=== PATIENT | male | born 1940 | race Caucasian/White ===

== ENCOUNTER → 2016-10-07 | Outpatient (CLI) | payer OTHER ==
[~2016-10-07] MED LIST: ALBUTEROL 3 ML 33 ML INH; ALBUTEROL0.09 MG/A2; AMOXIL500 MG PO; ANTIVERT/2525 MG PO; ANTIVERT25 MG PO; ASPIR-TRIN325 MG PO; ASPIRIN CHEWABL81 MG PO; AZITHROMYCIN250 MG PO; BRIMONIDINE TART5 ML OU; CLARITIN10 MG PO; COMBIVENT RESPIM4 GM INH; COMBIVENT1 AR1 IH; DELTASONE20 MG PO; FINASTERIDE5 M1 PO; FLOMAX0.4 MG PO; FLONASE 0.05% 121 EA NAS; FLUCONAZOLE100 MG PO; LEVAQUIN500 M2 PO; LEVAQUIN750 M1 PO; LEVOFLOXACIN500 MG PO; LISINOPRIL2.5 MG PO; LOMOTIL 0.025 M1 TA1 PO; LOPRESSOR25 MG PO; Lopressor25 MG PO; METOPROLOL1 MG/ML PO; MUCINEX600 MG PO; NITRO-DUR0.4 MG/HR TD; NORVASC5 MG PO; Oscal,Oyster S500 MG PO; PRAVACHOL20 MG PO; PREDNISONE10 MG PO; PREDNISONE50 MG PO; PROAIR HFA0.09 MG/AC INH; PROAIR HFA8.5 GM INH; PROTONIX40 MG PO; SYMBICORT1 AE1 INH; SYNTHROID,LEV125 MCG PO; SYNTHROID,LEV150 MCG PO; SYNTHROID0.15 MG PO; TOPROL XL25 MG PO; TRUSOPT 5 ML5 ML OPH; TRUSOPT 5 ML5 ML OU; VENTOLIN 02.5 MG/3 M; VENTOLIN 02.5 MG/3 M INH; VITAMIN D31000 IU PO; XALATAN 0.005%2.5 ML OU; XALATAN 2.5 ML2.5 ML OU; ZESTRIL5 MG PO; ZITHROMAX250 MG PO; ZOFRAN ODT4 MG SL
--- NOTE | ~2016-10-07 | ST ---
[place], [place] EXERCISE STRESS TEST REPORT NAME: DAVID ZAVALA UNIT #: [id number] ROOM: DOCTOR: ELIZABETH BUCHANAN MD BIRTHDATE: [birth year] DOS: 10/07/2016 LEXISCAN PER PROTOCOL: Baseline cardiogram sinus rhythm with left ventricular hypertrophy by voltage criteria with poor R-wave progression in the anterior leads, 0.4 mg of Lexiscan, duration of 10 seconds. With Lexiscan, the patient did have some shortness of breath. No new EKG changes. Blood pressure and heart rate responses are normal. Nuclear images will be reported separately. FINAL IMPRESSION: No EKG changes Lexiscan. Positive shortness of breath Lexiscan. Blood pressure and heart rate responses are normal. Nuclear images will be reported separately. ELIZABETH BUCHANAN MD CM:STRESS:EXERCISE STRESS TEST REPORT 0705 [id number] ELIZABETH BUCHANAN MD
== END | disposition home or self-care (01) ==
LOC: CARD 02:41
DX: R53.81 Other malaise (principal); R94.31 Abnormal electrocardiogram [ECG] [EKG]

== ENCOUNTER 2016-11-04 17:03 | Inpatient (IN) | payer OTHER ==
[2016-11-04] VITALS (10 sets, daily range): BP systolic 97–112; BP diastolic 54–63
[~2016-11-04] VITALS: Ht 172.7 cm; Wt 59.5 kg
--- NOTE | ~2016-11-04 | O ---
[place], [place] OPERATIVE NOTE NAME: DAVID ZAVALA UNIT #: [id number] ROOM: [facility]- DOCTOR: PEREZ DOOLEY,KYRA BIRTHDATE: [birth year] DOS: GASTROENDOSCOPIC REPORT INDICATIONS: The patient is 76 years old who has presented with chief complaint of GI bleed to the hospital. The patient has been lethargic. The patient had to be intubated and brought to ICU. The patient is status post transfusion of 4 units of packed RBC. PROCEDURE: After stabilization and intubation, today's procedure was panendoscopy cum colonoscopy. PREMEDICATION: Versed and Diprivan. SCOPE: Olympus forward-viewing gastroscope Q10 video. REPORT: After putting the patient in the left lateral position and after application of lubricant to the scope, the scope was introduced. Thereafter, under direct visualization, I advanced through the length of esophagus without difficulty. Esophagus cervicothoracic distally within normal limits. Gastric pouch was entered. No evidence of bleeding was noticed. At this stage, I intubated duodenum which is free of ulcer and lesions. The patient extubated and tolerated the procedure well. IMPRESSION: Gastritis, no active bleeding source in upper GI tract could be identified. Therefore, we are going to proceed with colonoscopy. KYRA TODD MD CM:OPRECORD:OPERATIVE NOTE 1301 1414 KYRA TODD MD 11/05/16 2018 interface
--- NOTE | ~2016-11-04 | CON ---
[place], [place] REPORT OF CONSULTATION NAME: DAVID ZAVALA [facility] #: [id number] UNIT #: [id number] ROOM: [facility] DOCTOR: RAE BUSTILLO MD,NAIMA BIRTHDATE: [birth year] DOS: 11/05/2016 PULMONARY CRITICAL CARE EVALUATION AND MANAGEMENT NOTE CONSULTATION REQUESTED BY: Hospitalist services. REASON FOR CONSULTATION: To assess the patient for medical management of acute respiratory failure. HISTORY OF PRESENT ILLNESS: This is a 76-year-old white male, unable to give me any history and all the history has been obtained from essential review of the medical records by the other physician, nursing documentation and my past consultation. The patient currently noted on the mechanical ventilator, intubated as well in the intensive care unit at the time of the assessment. He has been brought to the hospital on emergency as the patient was having diarrhea for the past 3 days. He was described with possibility of fresh blood sometimes in the stool as well. He has been admitted to the hospital for further medical management on 11/04/2016. The patient has been noted with large volume of fresh blood which is described by patient at night. After that, the patient has been noted with unresponsiveness with decreased mentation. He was also noted with hemodynamic instability. The patient has been intubated, started on mechanical ventilation. Currently, the patient is noted on mechanical ventilator with assist control mode on mechanical ventilation, tidal volume of 500 mL. The patient has not been noted with any symptoms of coughing or shortness of breath, which was described prior to the current intubation and mechanical ventilation or other symptoms, he has not been reported with any symptoms of hemoptysis. The patient has not been described any symptoms of chest pain previously. REVIEW OF SYSTEMS: Cannot be completed as the patient is intubated and currently noted on the mechanical ventilator. PAST MEDICAL HISTORY: Known with history of: 1. Centrilobular emphysema. 2. History of asbestos exposure. 3. Abdominal aortic aneurysm for the patient history and repair in the past. 4. BPH. 5. Essential hypertension. 6. Diverticulosis. 7. Unspecified congestive heart failure. 8. History of hypothyroidism. PAST SURGICAL HISTORY: Described as: 1. Pilonidal cyst removal. 2. Appendectomy. 3. Cardiac catheterization and coronary stents insertion. 4. Coronary angioplasty. 5. Abdominal aortic aneurysm. 6. Past fiberoptic bronchoscopy for the patient in August of 2015. SOCIAL HISTORY: The patient stays at home, . He has been noted with [place], [place] REPORT OF CONSULTATION NAME: DAVID ZAVALA UNIT #: [id number] ROOM: [facility] DOCTOR: RAE BUSTILLO MD,NAIMA BIRTHDATE: [birth year] history of tobacco use since age of [age] years old, 3/4 pack of cigarettes per day to half a pack of cigarettes per day. Not sure if the patient has been smoking cigarettes at this time or not. There was no history of alcohol use or illicit drug use was noted. 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 FAMILY HISTORY: Essentially noted noncontributory. CURRENT MEDICATIONS: The current medications administered noted as use of Flomax, levothyroxine, Protonix, Sandostatin drip, metoprolol tartrate, latanoprost eye drops, Trusopt eye drops, albuterol sulfate with nebulizer 1.25 mg q.i.d. p.r.n. for any wheezing. IV propofol for this patient and the use of the Versed 5 mg q. 1h. p.r.n. for management of agitation and sedation. DRUG ALLERGIES: REPORTED ALLERGY TO IVP DYE AND CODEINE PHOSPHATE. PHYSICAL EXAMINATION: GENERAL: A 76-year-old white male currently noted intubated, remains on mechanical ventilator, sedated with Diprivan and combination with Versed intermittent use. Height of the patient recorded as 5 feet 8 inches, weight of 131 pounds, BMI 19.9. VITAL SIGNS: Shows temperature noted as normal, respiratory rate of 12-13 on mechanical ventilator, heart rate 75, blood pressure 129/76 - 127/80. The pulse oxygen saturation for the patient recorded on the mechanical ventilator with 35% oxygen as 96% saturation. HEENT: The patient currently orally intubated. Orogastric tube is in place. Eyes were nonicterus. NECK: Supple. CARDIOVASCULAR: S1, S2 audible. LUNGS: Moderate reduction in breath sounds noted in the lungs bilaterally without any overt wheezing or crackles at the present time. ABDOMEN: Soft with hypoactive bowel sounds and no tenderness elicited. LABORATORY DATA: CBC of the patient that was done on 11/04/2016, hemoglobin 7.8, hematocrit 25.0, WBC count and platelet count were normal on admission. Lactic acid on admission was 2.3. PT/PTT on 11/04/2016 was normal on admission. CMP on admission 11/04/2016, BUN 22, creatinine was normal, sodium 134, mildly decreased. CPK normal. C-reactive protein mildly elevated at 1.49 with a normal troponin first set. The BMP of patient that was done this morning essentially noted as normal BMP. CBC of the patient of this morning after the 3 pack RBC blood transfusion in the past 12 hours shows WBC count 15.7, hemoglobin 10.7, hematocrit 33.0 with a platelet count of 115,000. Review of the radiology data for this patient. The chest x-ray of the patient that was done this morning, endotracheal tube, NG tube in place without any infiltration. Chest x-ray of the patient which was done earlier was noted with NG tube in the lower portion of the esophagus. CK-MB and troponin repeated was noted normal. Followup lactic acid of the patient on 11/04/2016 was normal. IMPRESSION: [place], [place] REPORT OF CONSULTATION NAME: DAVID ZAVALA UNIT #: [id number] ROOM: [facility] DOCTOR[facility]: [birth year] 1. The patient who has been currently admitted to the hospital noted with severe gastrointestinal bleeding with possibility considered as ischemic colitis or other etiology leading to large bleeding for the patient with anemia and subsequent respiratory failure secondary to the hypotension. 2. History of long-term chronic obstructive pulmonary disease. 3. Past history of nicotine dependence known from the past. 4. Severe protein-calorie malnutrition status as well with physical examination and BMI of 19. 5. Lactic acidosis secondary to hypovolemia for this patient and hypoperfusion for the patient resolved with resuscitation and adequate volume infusion. 6. Respiratory acidosis as well with metabolic component. PLAN OF TREATMENT: Adjust the tidal volume to 650 mL for this patient. Repeat arterial blood gas in a couple of hours after making the change. Mechanical ventilator settings for patient remains the same with assist control mode of mechanical ventilation. Ventilator bundle management initiation. DVT prophylaxis in the form of SCD avoiding any other anticoagulants because of the current GI bleeding. GI consultation has been ordered, which was pending. Monitor any further abnormal bleeding. Monitor hemoglobin and hematocrit closely for the patient with additional blood transfusion as necessary. Thrombocytopenia noted for the patient, this may be dilutional in nature after the current packed RBC blood transfusion. Obtain the endotracheal Gram stain, culture for this patient in case of any excessive secretion production. There has not been any secretion production noted at the present time. Order the prealbumin level for the patient for the morning as well. Monitor chest x-ray periodically for this patient as well as the other labs as well. Usual care. Other supportive therapy, plan of management and treatments. Further treatment changes will be done based on the progression of the illness. Use of the bronchodilator at least q.i.d. for the patient to help the secretion clearance from the endotracheal tube for this patient while on the mechanical ventilation. Total time for the patient's pulmonary and critical care evaluation and management for this patient was 40 minutes. NAIMA MCBRIDE MD CM:CONSTR:REPORT OF CONSULTATION 1030 11/06/16 0152 interface
--- NOTE | ~2016-11-04 | O ---
[place], [place] OPERATIVE NOTE NAME: DAVID ZAVALA UNIT #: [id number] ROOM: [facility]- DOCTOR: PEREZ DOOLEY,KYRA BIRTHDATE: [birth year] DOS: 11/07/2016 HISTORY OF PRESENT ILLNESS: The patient is a 76-year-old who has presented with chief complaint of GI bleed, underwent endoscopic assessment 3 days ago and no active bleeding. We did a colonoscopy, partial, in the ICU. There was all blood and debris. We could not visualize anything. He underwent 3 days of colonic prep because we knew that he has a redundant colon and because his past colonoscopy a couple of months ago was showing residual stool and blood in colon. Therefore, we could not have detailed findings. PROCEDURE: Today's procedure part of investigation is colonoscopy plus tattoo marking plus biopsy. PREMEDICATION: Versed and Diprivan. SCOPE: Olympus forward viewing colonoscope 10L video. REPORT: After putting the patient in the left lateral position and after application of lubricant to the scope, the scope was introduced. Thereafter, under direct visualization, I advanced through the length of colon with great difficulty due to redundancy and tortuosity of colon and numerous diverticulosis. There was a large volume of still blood residue in the colon; however, meticulously this time this was lavaged and suctioned out and eventually we were able to get to the base of the cecum. An ulcerated area of 2.5 cm, 3 cm at most was noticed. This has a visible vessel at the center. This is parallel with ileocecal valve. The site was tattooed for surgical arrangement. Margin of the ulceration area which was raised lip was biopsied. The patient extubated, tolerated procedure well. IMPRESSION: Cecal lesion at the ileocecal valve level, visible vessel at the center of it, which is responsible for rebleeding. Severe diverticulosis, severe redundancy and tortuosity of colon, retained stool; however, this time, we were able to scope the cecum. PLAN AND DISCUSSION: Consultation with Dr. Gupta of General Surgery team and right hemicolectomy hopefully and that will be the answer as far as his lower GI bleed is concerned. I believe this lesion is contained and that operation would be therapeutic for him. [place], [place] OPERATIVE NOTE NAME: DAVID ZAVALA UNIT #: [id number] ROOM: [facility] DOCTOR: PEREZ DOOLEY,KYRA BIRTHDATE: [birth year] KYRA OTDD MD CM:OPRECORD:OPERATIVE NOTE 1502 1555 KYRA TODD MD 11/07/16 1556 interface
--- NOTE | ~2016-11-04 | O ---
[place], [place] OPERATIVE NOTE NAME: DAVID ZAVALA UNIT #: [id number] ROOM: [facility]- DOCTOR: PEREZ DOOLEY,KYRA BIRTHDATE: [birth year] DOS: GASTROENDOSCOPIC REPORT INDICATIONS: The patient has presented with GI bleed, status post 4 units of transfusion. PROCEDURE: Today's procedure part of investigation is colonoscopy. PREMEDICATION: Diprivan. SCOPE: Olympus forward-viewing colonoscope 10L video. REPORT: After putting the patient in the left lateral position and after application of lubricant to rectal pouch and digital examination, scope was introduced. Thereafter, under direct visualization, with difficulty, advanced through the length of some portion of the colon. There is a large volume of stool and blood admixed, visualization dismal to less than 2%. Multiple lavage was done; however, unsuccessful. The patient extubated, tolerated the procedure well. IMPRESSION: Retained blood and stool in the colon, visualization dismal in a position that the patient is very difficult to come up with a detailed answer. PLAN AND DISCUSSION: I am going to organize a CTA of the abdomen today after hydration is assured and transfusion is given. Then, we are going to see if we have any source of concern for ischemic bowel otherwise, if no definitive answer, then we gradually would prep for the next 2 days until we get to a successful point where we can have another colonoscopy and to come up with the answer. We understand the limitations that we have patient intubated, cannot cooperate with us, we have to go gradually to get to the answer. KYRA TODD MD CM:OPRECORD:OPERATIVE NOTE 1301 141 KYRA TODD MD 11/05/16 141 interface
--- NOTE | ~2016-11-04 | PR ---
[place], [place] PROGRESS NOTE NAME: DAVID ZAVALA [facility] #: [id number] UNIT #: [id number] ROOM: [facility] DOCTOR: RAE BUSTILLO MD,NAIMA BIRTHDATE: [birth year] DOS: 11/06/2016 PULMONARY CRITICAL CARE EVALUATION HISTORY OF PRESENT ILLNESS: He has upper and lower endoscopy done for this patient that was completed by Dr. Catalan at the bedside. The colonoscopy noted suboptimal. The blood was noted for the patient in the colon. The patient was re-planned for having a repeat colonoscopy done possibly in the morning for this patient. After the good prep, the EGD for the patient does not show any significant abnormality explaining his bleeding. The patient has been noted hemodynamically stable. Sedation has been continued on the patient and with the reduction sedation for this patient mental status was noted to be appropriate. He has now been noted to have respiratory problems. PHYSICAL EXAMINATION: VITAL SIGNS: Shows a normal temperature, respiratory rate 12, heart rate 68, blood pressure 122/66 and 134/68. HEENT: Examination shows the patient remained orally intubated. NECK: Supple. CARDIOVASCULAR SYSTEM: S1, S2 audible. LUNGS: Hfva-nb-bonddgkd decreased breath sounds noted in the lungs bilaterally. ABDOMEN: Soft, nontender. Mild obesity. Bowel sounds present. EXTREMITIES: Shows no edema, clubbing or cyanosis. LABORATORY DATA: The patient's CBC this morning, hemoglobin 9.8, hematocrit 29.9, WBC count normal, platelet count 109,000, mildly decreased. Endotracheal aspirate culture showing preliminary normal vickie. The Gram stain for this patient was noted with many white blood cells, moderate epithelial cells, moderate gram-positive cocci in pairs. BMP of the patient on 11/14/2016 shows glucose 126, BUN and creatinine were normal. Prealbumin of 14. IMPRESSION: 1. The patient with acute respiratory failure secondary decompensation in patient, hypertension and acute gastrointestinal bleeding. 2. The patient was noted with improvement in hemoglobin and hematocrit and remained stable at this time. Source of the GI bleeding of the patient is most likely related to the lower GI tract since the upper endoscopy does not show any major abnormalities explaining the bleeding episode. 3. The patient with history of chronic obstructive pulmonary disease as well. 4. Mild thrombocytopenia for the patient was also noted. The platelet count was noted with mild worsening from yesterday. The CT of the chest, which was done on 11/05/2016 for the patient. Radiology's report for the patient was described as aneurysm formation of the descending aorta for the patient in the infrarenal area, measured as 3.9 cm in size. Significant prostate enlargement was also described. No other acute findings for the patient were described. 5. Moderate protein-calorie malnutrition. PLAN OF TREATMENT: The patient's sedation would be discontinued once the patient noted awake, will be given a trial of CPAP of 5, pressure support of 10 for a couple of hours. The CPAP trial will be continued for a couple of hours [place], [place] PROGRESS NOTE NAME: DAVID ZAVALA UNIT #: [id number] ROOM: [facility] DOCTOR: RAE BUSTILLO MD,NAIMA BIRTHDATE: [birth year] as tolerated. The patient will be assessed with arterial blood gases for potential liberation from mechanical ventilation today. Continue the current GI management with use of the Sandostatin drip and monitoring hemoglobin and hematocrit and blood transfusion. Supportive therapy, plan of management, other care. Continue bronchodilators on the patient while on the mechanical ventilator. Usual care. Further treatment changes will be done based on the progression of the illness. Total time pulmonary critical management for this patient today is 33 minutes. NAIMA MCBRIDE MD CM:PNTRANS 1101 1602 NAIMA BUSTILLO MD 11/07/16 0009 interface
--- NOTE | ~2016-11-04 | PN ---
[place], [place] PROGRESS NOTE NAME: DAVID ZAVALA [facility] #: [id number] UNIT #: [id number] ROOM: [facility] DOCTOR: RAE BUSTILLO MD,NAIMA BIRTHDATE: [birth year] DATE: 11/07/16 SUBJECTIVE: He has self-extubated himself yesterday as the patient's sedation was stopped. The patient did not require any ventilatory support such as the BiPAP or other post-extubation. Titrated on oxygen supplementation nasal cannula. The bowel prep for the patient has been started since last night till early this morning for the colonoscopy done today for assessment of GI bleeding. Hemodynamically, the patient has been noted well. At this time were noted n.p.o. because of the further GI workup to be completed as a colonoscopy. He denies symptoms of chest pain, coughing or any sputum expectoration. Denies any acute shortness of breath as well. OBJECTIVE: VITAL SIGNS: For the patient, which has been recorded shows the temperature noted as normal, respiratory rate 16, heart rate 62, blood pressure 98/60-100/58. Pulse oxygen saturation on 2 liters nasal cannula 97% saturation. HEENT: Examination shows head was atraumatic. Eyes nonicterus. NECK: Supple. CARDIOVASCULAR: S1, S2 is audible. LUNGS: The patient was noted without any wheezing or crackles at the present time. ABDOMEN: Soft, nontender. LABORATORY DATA: CBC of the patient that was done for this patient on 11/07/2016 shows hemoglobin 7.5, hematocrit 23.2, platelet count for the patient was 115,000. The culture of the endotracheal aspirate noted as a normal vickie. IMPRESSION: 1. The patient with acute gastrointestinal bleeding for the patient required further assessment. The source of the bleeding so far has not been determined. 2. Hypertension. The patient is hemodynamic. The patient was noted better at this time. 3. Acute respiratory failure secondary to the hypotension and current gastrointestinal bleeding, status post extubation, liberation of mechanical ventilation successfully without any difficulty. 4. Moderate protein-calorie malnutrition. 5. History of chronic obstructive pulmonary disease. PLAN OF TREATMENT: Proceed with the further workup at this time. Continue the oxygen supplementation, maintain saturation 90% or greater. Monitor respiratory status closely. The patient could be transferred from the intensive care unit to telemetry floor if desired. No other intervention changes will be noted on today's assessment. [place], [place] PROGRESS NOTE NAME: DAVID ZAVALA Stephanie UNIT #: [id number] ROOM: [facility] DOCTOR: NAIMA ARRIAGA MD BIRTHDATE: [birth year] NAIMA ARRIAGA MD CM:PNTRANS 1124 1356 NAIMA BUSTILLO MD 11/10/16 1357 JOSE LIMA MIS.LLR
[2016-11-04 17:57] LABS: BASO % 0.3 % (0.0-1.0); EOS # 0.2 10*3/uL (0.0-0.4); EOS % 2.6 % (1.0-4.0); HEMOGLOBIN 7.8 g/dl (14.0-18.0); LYMPH # 1.2 10*3/uL (1.3-4.4); MEAN CELL VOLUME 75.5 fl (80.0-94.0); MEAN CORPUSCULAR HGB 23.6 pg (27.0-31.0); MEAN CORPUSCULAR HGB CONC 31.2 g/dl (33.0-37.0); MEAN PLATELET VOLUME 9.4 fl (9.6-12.3); MONO # 0.7 10*3/uL (0.1-1.0); MONO % 12.1 % (3.0-9.0); NEUT % 65.7 % (47.0-73.0); PLATELET COUNT AUTOMATED 169 10*3/uL (130-400); RED BLOOD COUNT 3.31 10*6/uL (4.50-5.90); RED CELL DISTRI WIDTH 19.6 % (0-14.5)
[2016-11-04 18:14] LABS: ALBUMIN 3.1 gm/dl (3.1-4.5); ALKALINE PHOSPHATASE 104 U/L (45-117); BILIRUBIN, TOTAL 0.3 mg/dl (0.2-1.0); BUN 22 mg/dl (7-24); C-REACTIVE PROTEIN 1.49 MG/DL (0-0.3); CARBON DIOXIDE 27 mmol/L (21-32); CHLORIDE 99 mmol/L (98-107); CPK 37 U/L (39-308); EST GLOM FILT AFRICAN AMERICAN > 60 ml/min; GLUCOSE 117 mg/dL (65-99); MAGNESIUM 1.8 mg/dL (1.5-2.1); POTASSIUM 3.8 mmol/L (3.5-5.1); SGOT/AST 11 IU/L (3-35); SGPT/ALT 11 U/L (12-78); SODIUM 134 mmol/L (136-145); TOTAL PROTEIN 6.1 gm/dL (6.4-8.2)
[2016-11-04 18:14] LABS: INTERNATIONAL NORM RATIO 1.1 (2.0-3.5); PROTHROMBIN TIME 11.4 SECONDS (9.0-12.4)
[2016-11-04 18:15] LABS: TROPONIN I < 0.015 ng/ml (<0.045)
[2016-11-04 19:54] LABS: LA>2 REFLEX 2 HR DRAW NOW
[2016-11-05] VITALS (23 sets, daily range): BP systolic 95–149; BP diastolic 45–82
[2016-11-05 03:00] LABS: ABG BASE EXCESS -6.3 mmol/L (-2.0-2.0); ABG CO2 CONTENT 22.7 mmol/L (23-27); ABG TEMPERATURE 97.3 F (98.0-99.0); ARTERIAL BLOOD GAS PH 7.203 (7.35-7.45)
[2016-11-05 04:59] LABS: BUN 21 mg/dl (7-24); CARBON DIOXIDE 23 mmol/L (21-32); CHLORIDE 106 mmol/L (98-107); EST GLOM FILT AFRICAN AMERICAN > 60 ml/min; GLUCOSE 118 mg/dL (65-99); MAGNESIUM 1.8 mg/dL (1.5-2.1); POTASSIUM 3.8 mmol/L (3.5-5.1); SODIUM 138 mmol/L (136-145)
[2016-11-05 05:04] LABS: FREE T4 1.32 ng/dl (0.76-1.46)
[2016-11-05 05:10] LABS: THYROID STIM HORMONE (HS) 0.485 uIU/ml (0.358-4.75)
[2016-11-05 06:11] LABS: ABG CO2 CONTENT 22.3 mmol/L (23-27); ABG HCO3 20.7 mmol/l (22-26); ABG TEMPERATURE 97.3 F (98.0-99.0); ARTERIAL BLOOD GAS PH 7.253 (7.35-7.45); ARTERIAL BLOOD GAS PO2 97.2 mmHg (80-90)
[2016-11-05 06:14] LABS: ABG BASE EXCESS -5.9 mmol/L (-2.0-2.0)
[2016-11-05 08:29] LABS: BASO % 0.3 % (0.0-1.0); EOS # 0.2 10*3/uL (0.0-0.4); EOS % 1.1 % (1.0-4.0); IG # 0.1 10*3/uL (0.0-0.1); LYMPH # 1.7 10*3/uL (1.3-4.4); LYMPH % 10.5 % (27.0-41.0); MEAN CORPUSCULAR HGB 26.1 pg (27.0-31.0); MEAN CORPUSCULAR HGB CONC 32.4 g/dl (33.0-37.0); MEAN PLATELET VOLUME 9.7 fl (9.6-12.3); MONO # 1.4 10*3/uL (0.1-1.0); MONO % 8.7 % (3.0-9.0); NEUT # 12.4 10*3/uL (2.3-7.9); RED CELL DISTRI WIDTH 18.4 % (0-14.5); WHITE BLOOD COUNT 15.7 10*3/uL (4.8-10.8)
[2016-11-05 08:30] LABS: HEMOGLOBIN 10.7 g/dl (14.0-18.0); MEAN CELL VOLUME 80.5 fl (80.0-94.0); PLATELET COUNT AUTOMATED 115 10*3/uL (130-400)
[2016-11-05 09:49] LABS: FOLIC ACID 8.84 ng/mL (>5.38)
[2016-11-05 11:57] LABS: ABG CO2 CONTENT 22.1 mmol/L (23-27); ABG HCO3 20.8 mmol/l (22-26); ARTERIAL BLOOD GAS PH 7.305 (7.35-7.45)
[2016-11-05 18:01] LABS: BASO % 0.2 % (0.0-1.0); EOS % 0.3 % (1.0-4.0); HEMATOCRIT 30.5 % (42.0-52.0); IG # 0.1 10*3/uL (0.0-0.1); LYMPH # 0.5 10*3/uL (1.3-4.4); LYMPH % 3.9 % (27.0-41.0); MEAN CELL VOLUME 80.5 fl (80.0-94.0); MEAN CORPUSCULAR HGB 26.4 pg (27.0-31.0); MEAN CORPUSCULAR HGB CONC 32.8 g/dl (33.0-37.0); MEAN PLATELET VOLUME 9.9 fl (9.6-12.3); MONO # 0.8 10*3/uL (0.1-1.0); MONO % 6.7 % (3.0-9.0); NEUT % 88.4 % (47.0-73.0); PLATELET COUNT AUTOMATED 99 10*3/uL (130-400); RED BLOOD COUNT 3.79 10*6/uL (4.50-5.90); RED CELL DISTRI WIDTH 18.6 % (0-14.5); WHITE BLOOD COUNT 12.5 10*3/uL (4.8-10.8)
[2016-11-06] VITALS (9 sets, daily range): BP systolic 107–152; BP diastolic 54–78
[2016-11-06 06:24] LABS: ABG CO2 CONTENT 22.8 mmol/L (23-27); ABG HCO3 21.5 mmol/l (22-26); ABG TEMPERATURE 97.8 F (98.0-99.0); ARTERIAL BLOOD GAS PH 7.313 (7.35-7.45); ARTERIAL BLOOD GAS PO2 79.1 mmHg (80-90)
[2016-11-06 07:05] LABS: BASO % 0.1 % (0.0-1.0); HEMATOCRIT 29.9 % (42.0-52.0); HEMOGLOBIN 9.8 g/dl (14.0-18.0); LYMPH # 0.6 10*3/uL (1.3-4.4); LYMPH % 8.9 % (27.0-41.0); MEAN CELL VOLUME 80.8 fl (80.0-94.0); MEAN CORPUSCULAR HGB 26.5 pg (27.0-31.0); MEAN CORPUSCULAR HGB CONC 32.8 g/dl (33.0-37.0); MEAN PLATELET VOLUME 9.8 fl (9.6-12.3); MONO # 0.3 10*3/uL (0.1-1.0); MONO % 4.5 % (3.0-9.0); NEUT # 5.9 10*3/uL (2.3-7.9); NEUT % 86.1 % (47.0-73.0); PLATELET COUNT AUTOMATED 109 10*3/uL (130-400); RED CELL DISTRI WIDTH 18.6 % (0-14.5); WHITE BLOOD COUNT 6.9 10*3/uL (4.8-10.8)
[2016-11-06 07:17] LABS: BUN 16 mg/dl (7-24); CARBON DIOXIDE 23 mmol/L (21-32); CHLORIDE 106 mmol/L (98-107); EST GLOM FILT AFRICAN AMERICAN > 60 ml/min; GLUCOSE 126 mg/dL (65-99); SODIUM 139 mmol/L (136-145)
[2016-11-06 07:38] LABS: POTASSIUM 4.8 mmol/L (3.5-5.1)
[2016-11-06 07:56] LABS: PREALBUMIN 14 mg/dl (20-40)
[2016-11-07] VITALS (12 sets, daily range): BP systolic 96–136; BP diastolic 42–67
[2016-11-07 01:41] LABS: BASO % 0.2 % (0.0-1.0); EOS % 0.3 % (1.0-4.0); HEMATOCRIT 24.8 % (42.0-52.0); HEMOGLOBIN 8.1 g/dl (14.0-18.0); LYMPH # 1.5 10*3/uL (1.3-4.4); LYMPH % 15.8 % (27.0-41.0); MEAN CELL VOLUME 81.3 fl (80.0-94.0); MEAN CORPUSCULAR HGB 26.6 pg (27.0-31.0); MEAN CORPUSCULAR HGB CONC 32.7 g/dl (33.0-37.0); MEAN PLATELET VOLUME 9.8 fl (9.6-12.3); MONO # 1.4 10*3/uL (0.1-1.0); MONO % 14.2 % (3.0-9.0); NEUT # 6.6 10*3/uL (2.3-7.9); NEUT % 69.3 % (47.0-73.0); PLATELET COUNT AUTOMATED 125 10*3/uL (130-400); RED BLOOD COUNT 3.05 10*6/uL (4.50-5.90); WHITE BLOOD COUNT 9.5 10*3/uL (4.8-10.8)
[2016-11-07 06:50] LABS: BASO % 0.3 % (0.0-1.0); EOS # 0.1 10*3/uL (0.0-0.4); EOS % 0.8 % (1.0-4.0); HEMATOCRIT 23.2 % (42.0-52.0); HEMOGLOBIN 7.5 g/dl (14.0-18.0); LYMPH # 0.9 10*3/uL (1.3-4.4); MEAN CELL VOLUME 82.6 fl (80.0-94.0); MEAN CORPUSCULAR HGB 26.7 pg (27.0-31.0); MEAN CORPUSCULAR HGB CONC 32.3 g/dl (33.0-37.0); MEAN PLATELET VOLUME 9.6 fl (9.6-12.3); MONO # 0.8 10*3/uL (0.1-1.0); MONO % 13.3 % (3.0-9.0); NEUT # 4.3 10*3/uL (2.3-7.9); NEUT % 70.3 % (47.0-73.0); PLATELET COUNT AUTOMATED 115 10*3/uL (130-400); RED BLOOD COUNT 2.81 10*6/uL (4.50-5.90); RED CELL DISTRI WIDTH 18.9 % (0-14.5); WHITE BLOOD COUNT 6.1 10*3/uL (4.8-10.8)
[2016-11-08] VITALS: BP 136/67
[2016-11-08 04:14] VITALS: BP 114/45
[2016-11-08 06:15] LABS: BASO % 0.3 % (0.0-1.0); EOS # 0.2 10*3/uL (0.0-0.4); EOS % 3.2 % (1.0-4.0); HEMATOCRIT 27.6 % (42.0-52.0); HEMOGLOBIN 8.9 g/dl (14.0-18.0); LYMPH # 1.2 10*3/uL (1.3-4.4); LYMPH % 15.9 % (27.0-41.0); MEAN CELL VOLUME 83.1 fl (80.0-94.0); MEAN CORPUSCULAR HGB 26.8 pg (27.0-31.0); MEAN CORPUSCULAR HGB CONC 32.2 g/dl (33.0-37.0); MEAN PLATELET VOLUME 9.3 fl (9.6-12.3); MONO # 0.8 10*3/uL (0.1-1.0); MONO % 10.9 % (3.0-9.0); NEUT % 69.4 % (47.0-73.0); PLATELET COUNT AUTOMATED 123 10*3/uL (130-400); RED BLOOD COUNT 3.32 10*6/uL (4.50-5.90); RED CELL DISTRI WIDTH 18.4 % (0-14.5); WHITE BLOOD COUNT 7.2 10*3/uL (4.8-10.8)
[2016-11-08 06:45] LABS: CARBON DIOXIDE 30 mmol/L (21-32); CHLORIDE 104 mmol/L (98-107); EST GLOM FILT AFRICAN AMERICAN > 60 ml/min; GLUCOSE 84 mg/dL (65-99); SODIUM 141 mmol/L (136-145)
[2016-11-08 06:56] LABS: BUN 6 mg/dl (7-24); POTASSIUM 3.4 mmol/L (3.5-5.1)
[2016-11-08 08:00] VITALS: BP 131/71
[2016-11-08] MEDS ORDERED: PROTONIX40 M1 IV (11:45)
[2016-11-09] MEDS ORDERED: CALCIUM + D SO1 EACH PO (21:37)
== END 2016-11-08 15:00 | disposition short-term general hospital (02) | DRG 208 ==
LOC: ED 17:03 → ICCU 18:15 → EDHOLD 18:15 → ICCU 18:43
PROVIDERS: Internal Medicine; Internal Medicine Critical Care Medicine; Student in an Organized Health Care Education/Training Program
PROC: 30233N1 Transfusion of Nonautologous Red Blood Cells into Peripheral Vein, Percutaneous Approach (ICD-10-PCS; principal; 2016-11-04)
PROC: 0DJ08ZZ Inspection of Upper Intestinal Tract, Via Natural or Artificial Opening Endoscopic (ICD-10-PCS; 2016-11-05)
PROC: 5A1945Z Respiratory Ventilation, 24-96 Consecutive Hours (ICD-10-PCS; 2016-11-05)
PROC: 0BH17EZ Insertion of Endotracheal Airway into Trachea, Via Natural or Artificial Opening (ICD-10-PCS; 2016-11-05)
PROC: 0DBH8ZX Excision of Cecum, Via Natural or Artificial Opening Endoscopic, Diagnostic (ICD-10-PCS; 2016-11-07)
DX: J96.20 Acute and chronic respiratory failure, unspecified whether with hypoxia or hypercapnia (principal); K63.3 Ulcer of intestine; E44.0 Moderate protein-calorie malnutrition; I11.0 Hypertensive heart disease with heart failure; E87.2 Acidosis; R65.10 Systemic inflammatory response syndrome (SIRS) of non-infectious origin without acute organ dysfunction; I50.9 Heart failure, unspecified; K92.2 Gastrointestinal hemorrhage, unspecified; E87.1 Hypo-osmolality and hyponatremia; Z68.1 Body mass index [BMI] 19.9 or less, adult; J43.9 Emphysema, unspecified; R73.9 Hyperglycemia, unspecified; D50.9 Iron deficiency anemia, unspecified; K21.9 Gastro-esophageal reflux disease without esophagitis; D69.6 Thrombocytopenia, unspecified; H40.10X0 Unspecified open-angle glaucoma, stage unspecified; K29.70 Gastritis, unspecified, without bleeding; F17.210 Nicotine dependence, cigarettes, uncomplicated; N40.1 Benign prostatic hyperplasia with lower urinary tract symptoms; K57.90 Diverticulosis of intestine, part unspecified, without perforation or abscess without bleeding; E03.9 Hypothyroidism, unspecified; Z71.6 Tobacco abuse counseling; Z99.81 Dependence on supplemental oxygen; I25.2 Old myocardial infarction; Z98.49 Cataract extraction status, unspecified eye; Z82.49 Family history of ischemic heart disease and other diseases of the circulatory system; Z88.5 Allergy status to narcotic agent; Z91.041 Radiographic dye allergy status; Z90.49 Acquired absence of other specified parts of digestive tract; Z98.61 Coronary angioplasty status

== ENCOUNTER 2016-11-09 20:13 | Emergency (ER) | payer OTHER ==
[~2016-11-09] VITALS: Ht 170.1 cm; Wt 59.0 kg
[~2016-11-09 20:13] MED LIST changes: +PROTONIX40 M1 IV
[2016-11-09 20:43] VITALS: BP 129/82
[2016-11-09 20:56] LABS: BASO % 0.1 % (0.0-1.0); EOS # 0.1 10*3/uL (0.0-0.4); EOS % 1.1 % (1.0-4.0); HEMATOCRIT 29.7 % (42.0-52.0); HEMOGLOBIN 9.9 g/dl (14.0-18.0); MEAN CELL VOLUME 81.1 fl (80.0-94.0); MEAN CORPUSCULAR HGB CONC 33.3 g/dl (33.0-37.0); MEAN PLATELET VOLUME 9.3 fl (9.6-12.3); MONO # 0.7 10*3/uL (0.1-1.0); MONO % 8.2 % (3.0-9.0); NEUT % 79.4 % (47.0-73.0); PLATELET COUNT AUTOMATED 120 10*3/uL (130-400); RED BLOOD COUNT 3.66 10*6/uL (4.50-5.90); RED CELL DISTRI WIDTH 19.1 % (0-14.5); WHITE BLOOD COUNT 8.9 10*3/uL (4.8-10.8)
[2016-11-09 21:08] LABS: BUN 8 mg/dl (7-24); CARBON DIOXIDE 27 mmol/L (21-32); CHLORIDE 101 mmol/L (98-107); EST GLOM FILT AFRICAN AMERICAN > 60 ml/min; GLUCOSE 159 mg/dL (65-99); POTASSIUM 3.5 mmol/L (3.5-5.1); SODIUM 138 mmol/L (136-145)
[2016-11-09 21:13] LABS: BILIRUBIN NEGATIVE (NEGATIVE); BLOOD NEGATIVE (NEGATIVE); CLARITY SL CLOUDY (CLEAR); COLOR YELLOW (YELLOW); GLUCOSE NEGATIVE (NEGATIVE); KETONE TRACE (NEGATIVE); LEUKO ESTERASE NEGATIVE (NEGATIVE); NITRITE NEGATIVE (NEGATIVE); PROTEIN NEGATIVE (NEGATIVE); SPECIFIC GRAVITY <= 1.005 (1.005-1.030); UROBILINOGEN 0.2 E.U./dl (0.2-1.0)
[2016-11-09 21:21] LABS: RBC 0-2 rbc/hpf (0-2); WBC 0-2 wbc/hpf (0-5)
[2016-11-09 21:22] LABS: BACTERIA TRACE; EPITHELIAL CELLS 0-2; URINE REFLEX COMMENT NO (NO)
[2016-11-09] MEDS ORDERED: CALCIUM + D SO1 EACH PO (21:37)
== END 2016-11-09 21:54 | disposition home or self-care (01) ==
LOC: ED 20:13
PROVIDERS: Emergency Medicine Emergency Medical Services
DX: R33.9 Retention of urine, unspecified (principal); F17.200 Nicotine dependence, unspecified, uncomplicated; Z95.5 Presence of coronary angioplasty implant and graft; N40.0 Benign prostatic hyperplasia without lower urinary tract symptoms; J44.9 Chronic obstructive pulmonary disease, unspecified; Z99.81 Dependence on supplemental oxygen; I10 Essential (primary) hypertension; K21.9 Gastro-esophageal reflux disease without esophagitis; I25.2 Old myocardial infarction; Z88.6 Allergy status to analgesic agent; Z91.013 Allergy to seafood; Z91.041 Radiographic dye allergy status; Z79.899 Other long term (current) drug therapy

== ENCOUNTER 2016-11-21 11:22 | Inpatient (IN) | payer OTHER ==
[~2016-11-21] VITALS: Ht 182.8 cm; Wt 79.4 kg
[2016-11-21] VITALS (7 sets, daily range): BP systolic 150–183; BP diastolic 76–104
[~2016-11-21 11:22] MED LIST changes: +CALCIUM + D SO1 EACH PO
[2016-11-21 12:07] LABS: BILIRUBIN NEGATIVE (NEGATIVE); BLOOD 3+ (NEGATIVE); CLARITY TURBID (CLEAR); COLOR RED (YELLOW); GLUCOSE NEGATIVE (NEGATIVE); KETONE TRACE (NEGATIVE); LEUKO ESTERASE 1+ (NEGATIVE); NITRITE POSITIVE (NEGATIVE); PROTEIN 2+ (NEGATIVE)
[2016-11-21 12:13] LABS: RBC TNTC rbc/hpf (0-2); URINE REFLEX COMMENT YES (NO)
[2016-11-21 12:17] LABS: ALBUMIN 2.8 gm/dl (3.1-4.5); ALKALINE PHOSPHATASE 96 U/L (45-117); BILIRUBIN, TOTAL 0.5 mg/dl (0.2-1.0); BUN 12 mg/dl (7-24); CARBON DIOXIDE 23 mmol/L (21-32); CHLORIDE 98 mmol/L (98-107); EST GLOM FILT AFRICAN AMERICAN > 60 ml/min; GLUCOSE 102 mg/dL (65-99); POTASSIUM 4.3 mmol/L (3.5-5.1); SGOT/AST 39 IU/L (3-35); SODIUM 131 mmol/L (136-145); TOTAL PROTEIN 5.9 gm/dL (6.4-8.2)
[2016-11-21 12:19] LABS: SGPT/ALT 62 U/L (12-78)
[2016-11-21 12:23] LABS: BASO % 0.4 % (0.0-1.0); EOS # 0.4 10*3/uL (0.0-0.4); EOS % 4.7 % (1.0-4.0); HEMATOCRIT 30.5 % (42.0-52.0); HEMOGLOBIN 9.7 g/dl (14.0-18.0); IG # 0.1 10*3/uL (0.0-0.1); LYMPH # 0.9 10*3/uL (1.3-4.4); LYMPH % 10.9 % (27.0-41.0); MEAN CELL VOLUME 82.4 fl (80.0-94.0); MEAN CORPUSCULAR HGB 26.2 pg (27.0-31.0); MEAN CORPUSCULAR HGB CONC 31.8 g/dl (33.0-37.0); MEAN PLATELET VOLUME 9.2 fl (9.6-12.3); MONO # 0.6 10*3/uL (0.1-1.0); MONO % 7.9 % (3.0-9.0); NEUT # 5.9 10*3/uL (2.3-7.9); NEUT % 75.5 % (47.0-73.0); PLATELET COUNT AUTOMATED 212 10*3/uL (130-400); RED CELL DISTRI WIDTH 17.8 % (0-14.5); WHITE BLOOD COUNT 7.9 10*3/uL (4.8-10.8)
[2016-11-21] MEDS ORDERED: COMBIVENT RESPIM4 GM INH (17:24)
[2016-11-21] MEDS ORDERED: PROTONIX40 MG PO (17:28)
[2016-11-21 18:05] LABS: CKMB 1.9 ng/ml (0.5-3.6); CPK 26 U/L (39-308)
[2016-11-21 18:06] LABS: TROPONIN I < 0.015 ng/ml (<0.045)
[2016-11-22] VITALS: BP 116/52
[2016-11-22 00:52] LABS: CKMB 2.2 ng/ml (0.5-3.6); CPK 23 U/L (39-308)
[2016-11-22 00:57] LABS: TROPONIN I < 0.015 ng/ml (<0.045)
[2016-11-22 06:37] LABS: HEMOGLOBIN 8.4 g/dl (14.0-18.0); LYMPH # 0.3 10*3/uL (1.3-4.4); MEAN CELL VOLUME 82.3 fl (80.0-94.0); MEAN CORPUSCULAR HGB 26.6 pg (27.0-31.0); MEAN CORPUSCULAR HGB CONC 32.3 g/dl (33.0-37.0); MEAN PLATELET VOLUME 10.1 fl (9.6-12.3); MONO # 0.2 10*3/uL (0.1-1.0); MONO % 5.9 % (3.0-9.0); NEUT % 84.5 % (47.0-73.0); PLATELET COUNT AUTOMATED 212 10*3/uL (130-400); RED BLOOD COUNT 3.16 10*6/uL (4.50-5.90); RED CELL DISTRI WIDTH 17.4 % (0-14.5); WHITE BLOOD COUNT 3.5 10*3/uL (4.8-10.8)
[2016-11-22 06:55] LABS: CPK 21 U/L (39-308)
[2016-11-22 06:56] LABS: CKMB 2.1 ng/ml (0.5-3.6)
[2016-11-22 07:06] LABS: TROPONIN I < 0.015 ng/ml (<0.045)
[2016-11-22 07:08] LABS: ALBUMIN 2.2 gm/dl (3.1-4.5); BILIRUBIN, TOTAL 0.4 mg/dl (0.2-1.0); BUN 9 mg/dl (7-24); CARBON DIOXIDE 24 mmol/L (21-32); CHLORIDE 102 mmol/L (98-107); CHOLESTEROL 126 mg/dL (<200); EST GLOM FILT AFRICAN AMERICAN > 60 ml/min; GLUCOSE 132 mg/dL (65-99); MAGNESIUM 1.7 mg/dL (1.5-2.1); POTASSIUM 3.7 mmol/L (3.5-5.1); SGOT/AST 18 IU/L (3-35); SGPT/ALT 40 U/L (12-78); SODIUM 134 mmol/L (136-145); TOTAL PROTEIN 4.9 gm/dL (6.4-8.2); TRIGLYCERIDES 54 mg/dl (<150); VLDL CHOLESTEROL 11 mg/dL (6-40)
[2016-11-22 07:14] LABS: ALKALINE PHOSPHATASE 73 U/L (45-117); HDL CHOLESTEROL 37 mg/dl (40-60); LDL CHOLESTEROL 78 mg/dL (9-159); THYROID STIM HORMONE (HS) 0.684 uIU/ml (0.358-4.75)
[2016-11-22 08:00] VITALS: BP 129/73
[2016-11-22 08:18] LABS: HEMOGLOBIN A1c 5.5 % (4.8-5.6)
[2016-11-22 12:00] VITALS: BP 119/59
== END 2016-11-22 15:42 | disposition home or self-care (01) | DRG 698 ==
LOC: ED 11:22 → EDHOLD 14:44 → 5E 15:08
PROVIDERS: Emergency Medicine; Internal Medicine
DX: T83.511A Infection and inflammatory reaction due to indwelling urethral catheter, initial encounter (principal); E43 Unspecified severe protein-calorie malnutrition; J44.1 Chronic obstructive pulmonary disease with (acute) exacerbation; N39.0 Urinary tract infection, site not specified; I11.0 Hypertensive heart disease with heart failure; I50.9 Heart failure, unspecified; N40.0 Benign prostatic hyperplasia without lower urinary tract symptoms; J61 Pneumoconiosis due to asbestos and other mineral fibers; F41.0 Panic disorder [episodic paroxysmal anxiety]; K21.9 Gastro-esophageal reflux disease without esophagitis; H40.9 Unspecified glaucoma; E03.9 Hypothyroidism, unspecified; Z71.6 Tobacco abuse counseling; I25.2 Old myocardial infarction; Z88.8 Allergy status to other drugs, medicaments and biological substances; Z85.038 Personal history of other malignant neoplasm of large intestine; Z91.013 Allergy to seafood; Z91.041 Radiographic dye allergy status; Z98.49 Cataract extraction status, unspecified eye; Z87.891 Personal history of nicotine dependence; Z82.49 Family history of ischemic heart disease and other diseases of the circulatory system; Z83.3 Family history of diabetes mellitus

== ENCOUNTER 2016-11-28 04:39 | Inpatient (IN) | payer OTHER ==
[2016-11-28] VITALS (8 sets, daily range): BP systolic 114–170; BP diastolic 56–73
[~2016-11-28] VITALS: Ht 170.2 cm; Wt 76.8 kg
[2016-11-28 06:04] LABS: BASO % 0.3 % (0.0-1.0); EOS # 0.3 10*3/uL (0.0-0.4); EOS % 2.9 % (1.0-4.0); HEMATOCRIT 32.6 % (42.0-52.0); HEMOGLOBIN 10.3 g/dl (14.0-18.0); IG # 0.1 10*3/uL (0.0-0.1); LYMPH % 11.1 % (27.0-41.0); MEAN CELL VOLUME 82.7 fl (80.0-94.0); MEAN CORPUSCULAR HGB 26.1 pg (27.0-31.0); MEAN CORPUSCULAR HGB CONC 31.6 g/dl (33.0-37.0); MEAN PLATELET VOLUME 9.1 fl (9.6-12.3); MONO # 0.8 10*3/uL (0.1-1.0); MONO % 8.9 % (3.0-9.0); NEUT # 6.6 10*3/uL (2.3-7.9); NEUT % 76.2 % (47.0-73.0); PLATELET COUNT AUTOMATED 266 10*3/uL (130-400); RED BLOOD COUNT 3.94 10*6/uL (4.50-5.90); RED CELL DISTRI WIDTH 17.7 % (0-14.5); WHITE BLOOD COUNT 8.7 10*3/uL (4.8-10.8)
[2016-11-28 06:15] LABS: BUN 13 mg/dl (7-24); CARBON DIOXIDE 30 mmol/L (21-32); CHLORIDE 99 mmol/L (98-107); EST GLOM FILT AFRICAN AMERICAN > 60 ml/min; GLUCOSE 101 mg/dL (65-99); POTASSIUM 3.8 mmol/L (3.5-5.1); SODIUM 134 mmol/L (136-145)
[2016-11-28] MEDS ORDERED: TOPROL XL25 MG PO (09:51)
[2016-11-28 12:21] LABS: CKMB 1.8 ng/ml (0.5-3.6); CPK 22 U/L (39-308)
[2016-11-28 12:28] LABS: TROPONIN I < 0.015 ng/ml (<0.045)
[2016-11-28 18:25] LABS: CKMB 1.9 ng/ml (0.5-3.6); CPK 25 U/L (39-308)
[2016-11-28 18:27] LABS: TROPONIN I < 0.015 ng/ml (<0.045)
[2016-11-28 19:01] LABS: BILIRUBIN NEGATIVE (NEGATIVE); BLOOD 2+ (NEGATIVE); CLARITY CLEAR (CLEAR); COLOR YELLOW (YELLOW); GLUCOSE NEGATIVE (NEGATIVE); KETONE NEGATIVE (NEGATIVE); LEUKO ESTERASE TRACE (NEGATIVE); NITRITE NEGATIVE (NEGATIVE); PH 5.5 (5.0-9.0); PROTEIN NEGATIVE (NEGATIVE); SPECIFIC GRAVITY <= 1.005 (1.005-1.030); UROBILINOGEN 0.2 E.U./dl (0.2-1.0)
[2016-11-28 19:30] LABS: BACTERIA TRACE; WBC 0-2 wbc/hpf (0-5)
[2016-11-28 19:31] LABS: RBC 31-40 rbc/hpf (0-2); URINE REFLEX COMMENT YES (NO)
[2016-11-29] VITALS: BP 109/58
[2016-11-29 00:58] LABS: CKMB 1.5 ng/ml (0.5-3.6); TROPONIN I 0.017 ng/ml (<0.045)
[2016-11-29 04:00] VITALS: BP 141/70
[2016-11-29 06:47] LABS: BASO % 0.4 % (0.0-1.0); EOS # 0.2 10*3/uL (0.0-0.4); EOS % 2.6 % (1.0-4.0); HEMATOCRIT 27.9 % (42.0-52.0); HEMOGLOBIN 8.7 g/dl (14.0-18.0); LYMPH % 14.4 % (27.0-41.0); MEAN CELL VOLUME 82.8 fl (80.0-94.0); MEAN CORPUSCULAR HGB 25.8 pg (27.0-31.0); MEAN CORPUSCULAR HGB CONC 31.2 g/dl (33.0-37.0); MEAN PLATELET VOLUME 9.3 fl (9.6-12.3); MONO # 0.6 10*3/uL (0.1-1.0); MONO % 8.4 % (3.0-9.0); NEUT # 5.1 10*3/uL (2.3-7.9); NEUT % 73.8 % (47.0-73.0); PLATELET COUNT AUTOMATED 231 10*3/uL (130-400); RED BLOOD COUNT 3.37 10*6/uL (4.50-5.90); WHITE BLOOD COUNT 6.9 10*3/uL (4.8-10.8)
[2016-11-29 07:14] LABS: PROTHROMBIN TIME 10.8 SECONDS (9.0-12.4)
[2016-11-29 07:16] LABS: ALBUMIN 2.3 gm/dl (3.1-4.5); BUN 7 mg/dl (7-24); CARBON DIOXIDE 28 mmol/L (21-32); CHLORIDE 104 mmol/L (98-107); CHOLESTEROL 126 mg/dL (<200); EST GLOM FILT AFRICAN AMERICAN > 60 ml/min; GLUCOSE 85 mg/dL (65-99); MAGNESIUM 1.7 mg/dL (1.5-2.1); POTASSIUM 3.4 mmol/L (3.5-5.1); SGOT/AST 13 IU/L (3-35); SGPT/ALT 27 U/L (12-78); SODIUM 138 mmol/L (136-145); TRIGLYCERIDES 69 mg/dl (<150); VLDL CHOLESTEROL 14 mg/dL (6-40)
[2016-11-29 07:23] LABS: ALKALINE PHOSPHATASE 70 U/L (45-117); BILIRUBIN, TOTAL 0.2 mg/dl (0.2-1.0); FREE T4 0.95 ng/dl (0.76-1.46); HDL CHOLESTEROL 44 mg/dl (40-60); LDL CHOLESTEROL 68 mg/dL (9-159); PHOSPHOROUS 2.6 mg/dL (2.5-4.9); TOTAL PROTEIN 4.9 gm/dL (6.4-8.2)
[2016-11-29 08:00] VITALS: BP 128/89
[2016-11-29 08:46] LABS: VITAMIN D, 25-HYDROXY 19.3 ng/mL (30-100)
[2016-11-29 08:47] LABS: FOLIC ACID 7.23 ng/mL (>5.38)
[2016-11-29 12:00] VITALS: BP 148/78
== END 2016-11-29 14:32 | disposition left against medical advice (07) | DRG 871 ==
LOC: ED 04:39 → EDHOLD 06:20 → 4E 06:32
PROVIDERS: Hospitalist; Student in an Organized Health Care Education/Training Program
DX: A41.9 Sepsis, unspecified organism (principal); J18.9 Pneumonia, unspecified organism; E43 Unspecified severe protein-calorie malnutrition; I11.0 Hypertensive heart disease with heart failure; I50.32 Chronic diastolic (congestive) heart failure; E87.1 Hypo-osmolality and hyponatremia; F17.210 Nicotine dependence, cigarettes, uncomplicated; H40.89 Other specified glaucoma; N40.1 Benign prostatic hyperplasia with lower urinary tract symptoms; E03.8 Other specified hypothyroidism; J42 Unspecified chronic bronchitis; E87.6 Hypokalemia; Z53.21 Procedure and treatment not carried out due to patient leaving prior to being seen by health care provider; K21.9 Gastro-esophageal reflux disease without esophagitis; Z85.038 Personal history of other malignant neoplasm of large intestine; I25.2 Old myocardial infarction; Z90.49 Acquired absence of other specified parts of digestive tract; Z98.49 Cataract extraction status, unspecified eye; Z88.6 Allergy status to analgesic agent; Z91.013 Allergy to seafood; Z79.51 Long term (current) use of inhaled steroids; Z79.899 Other long term (current) drug therapy; Z68.21 Body mass index [BMI] 21.0-21.9, adult

== ENCOUNTER 2016-12-06 14:53 | Emergency (ER) | payer OTHER ==
[~2016-12-06] VITALS: Ht 170.1 cm; Wt 64.4 kg
[2016-12-06 14:53] VITALS: BP 116/72
== END 2016-12-06 16:33 | disposition home or self-care (01) ==
LOC: ED 14:53
DX: T83.9XXA Unspecified complication of genitourinary prosthetic device, implant and graft, initial encounter (principal); F17.200 Nicotine dependence, unspecified, uncomplicated; E03.9 Hypothyroidism, unspecified; K21.9 Gastro-esophageal reflux disease without esophagitis; I11.0 Hypertensive heart disease with heart failure; I50.9 Heart failure, unspecified; J44.9 Chronic obstructive pulmonary disease, unspecified; Z88.6 Allergy status to analgesic agent; Z91.013 Allergy to seafood; Z91.041 Radiographic dye allergy status; Z79.899 Other long term (current) drug therapy; Y92.9 Unspecified place or not applicable

== ENCOUNTER 2016-12-08 17:11 | Emergency (ER) | payer OTHER ==
[~2016-12-08] VITALS: Ht 170.1 cm; Wt 65.8 kg
[2016-12-08 18:36] VITALS: BP 145/70
[2016-12-08 19:41] LABS: BILIRUBIN NEGATIVE (NEGATIVE); BLOOD 3+ (NEGATIVE); CLARITY SL CLOUDY (CLEAR); COLOR YELLOW (YELLOW); GLUCOSE NEGATIVE (NEGATIVE); KETONE NEGATIVE (NEGATIVE); LEUKO ESTERASE 1+ (NEGATIVE); NITRITE NEGATIVE (NEGATIVE); PROTEIN TRACE (NEGATIVE); UROBILINOGEN 0.2 E.U./dl (0.2-1.0)
[2016-12-08 19:48] LABS: BACTERIA 4+; EPITHELIAL CELLS 0-2; RBC TNTC rbc/hpf (0-2); URINE REFLEX COMMENT YES (NO); WBC TNTC wbc/hpf (0-5)
[2016-12-08] MEDS ORDERED: CIPRO500 MG PO (20:02)
== END 2016-12-08 20:03 | disposition home or self-care (01) ==
LOC: ED 17:11
PROVIDERS: Emergency Medicine Emergency Medical Services
DX: T83.9XXA Unspecified complication of genitourinary prosthetic device, implant and graft, initial encounter (principal); N39.0 Urinary tract infection, site not specified; F17.200 Nicotine dependence, unspecified, uncomplicated; N40.0 Benign prostatic hyperplasia without lower urinary tract symptoms; K21.9 Gastro-esophageal reflux disease without esophagitis; I10 Essential (primary) hypertension; Z91.013 Allergy to seafood; Z91.041 Radiographic dye allergy status; Z79.899 Other long term (current) drug therapy

== ENCOUNTER 2016-12-11 23:25 | Inpatient (IN) | payer OTHER ==
[~2016-12-11] VITALS: Ht 170.1 cm; Wt 64.0 kg
[~2016-12-11 23:25] MED LIST changes: +CIPRO500 MG PO
[2016-12-11 23:33] VITALS: BP 168/79
[2016-12-11 23:48] LABS: BASO % 0.5 % (0.0-1.0); EOS # 0.4 10*3/uL (0.0-0.4); EOS % 4.5 % (1.0-4.0); HEMATOCRIT 34.7 % (42.0-52.0); HEMOGLOBIN 10.9 g/dl (14.0-18.0); LYMPH # 1.6 10*3/uL (1.3-4.4); LYMPH % 20.5 % (27.0-41.0); MEAN CELL VOLUME 80.5 fl (80.0-94.0); MEAN CORPUSCULAR HGB 25.3 pg (27.0-31.0); MEAN CORPUSCULAR HGB CONC 31.4 g/dl (33.0-37.0); MEAN PLATELET VOLUME 10.2 fl (9.6-12.3); MONO # 0.8 10*3/uL (0.1-1.0); NEUT % 64.2 % (47.0-73.0); PLATELET COUNT AUTOMATED 166 10*3/uL (130-400); RED BLOOD COUNT 4.31 10*6/uL (4.50-5.90); RED CELL DISTRI WIDTH 17.3 % (0-14.5); WHITE BLOOD COUNT 7.8 10*3/uL (4.8-10.8)
[2016-12-11 23:59] VITALS: BP 121/77
[2016-12-12 00:05] LABS: ALBUMIN 3.3 gm/dl (3.1-4.5); ALKALINE PHOSPHATASE 103 U/L (45-117); BILIRUBIN, TOTAL 0.4 mg/dl (0.2-1.0); BUN 16 mg/dl (7-24); C-REACTIVE PROTEIN 0.32 MG/DL (0-0.3); CARBON DIOXIDE 24 mmol/L (21-32); CHLORIDE 98 mmol/L (98-107); CKMB 1.2 ng/ml (0.5-3.6); CPK 22 U/L (39-308); EST GLOM FILT AFRICAN AMERICAN > 60 ml/min; GLUCOSE 94 mg/dL (65-99); POTASSIUM 3.8 mmol/L (3.5-5.1); SGOT/AST 16 IU/L (3-35); SGPT/ALT 21 U/L (12-78); SODIUM 132 mmol/L (136-145); TOTAL PROTEIN 6.7 gm/dL (6.4-8.2)
[2016-12-12 00:07] LABS: PROTHROMBIN TIME 10.9 SECONDS (9.0-12.4)
[2016-12-12 00:14] LABS: TROPONIN I < 0.015 ng/ml (<0.045)
[2016-12-12 01:14] LABS: BILIRUBIN NEGATIVE (NEGATIVE); BLOOD NEGATIVE (NEGATIVE); CLARITY CLEAR (CLEAR); COLOR YELLOW (YELLOW); GLUCOSE NEGATIVE (NEGATIVE); KETONE NEGATIVE (NEGATIVE); LEUKO ESTERASE NEGATIVE (NEGATIVE); NITRITE NEGATIVE (NEGATIVE); PH 5.5 (5.0-9.0); PROTEIN NEGATIVE (NEGATIVE); SPECIFIC GRAVITY <= 1.005 (1.005-1.030); UROBILINOGEN 0.2 E.U./dl (0.2-1.0)
[2016-12-12 01:35] LABS: URINE REFLEX COMMENT NO (NO)
[2016-12-12 02:15] VITALS: BP 143/71
[2016-12-12 06:52] LABS: BASO % 0.6 % (0.0-1.0); EOS # 0.3 10*3/uL (0.0-0.4); EOS % 5.1 % (1.0-4.0); HEMATOCRIT 34.1 % (42.0-52.0); HEMOGLOBIN 10.6 g/dl (14.0-18.0); MEAN CELL VOLUME 81.2 fl (80.0-94.0); MEAN CORPUSCULAR HGB 25.2 pg (27.0-31.0); MEAN CORPUSCULAR HGB CONC 31.1 g/dl (33.0-37.0); MEAN PLATELET VOLUME 10.4 fl (9.6-12.3); MONO # 0.5 10*3/uL (0.1-1.0); MONO % 10.6 % (3.0-9.0); NEUT # 3.2 10*3/uL (2.3-7.9); NEUT % 63.3 % (47.0-73.0); PLATELET COUNT AUTOMATED 149 10*3/uL (130-400); RED CELL DISTRI WIDTH 17.3 % (0-14.5); WHITE BLOOD COUNT 5.1 10*3/uL (4.8-10.8)
[2016-12-12 07:28] LABS: CHLORIDE 98 mmol/L (98-107); POTASSIUM 3.7 mmol/L (3.5-5.1); SODIUM 135 mmol/L (136-145)
[2016-12-12 07:35] LABS: BUN 14 mg/dl (7-24); CARBON DIOXIDE 29 mmol/L (21-32); EST GLOM FILT AFRICAN AMERICAN > 60 ml/min; GLUCOSE 87 mg/dL (65-99)
[2016-12-12 08:00] VITALS: BP 124/70
[2016-12-12 12:00] VITALS: BP 123/70
[2016-12-12 16:00] VITALS: BP 158/82
[2016-12-12 20:00] VITALS: BP 143/73
[2016-12-13] VITALS: BP 144/67
[2016-12-13 06:12] LABS: HEMATOCRIT 29.3 % (42.0-52.0); HEMOGLOBIN 8.9 g/dl (14.0-18.0); LYMPH # 0.6 10*3/uL (1.3-4.4); LYMPH % 15.1 % (27.0-41.0); MEAN CELL VOLUME 81.4 fl (80.0-94.0); MEAN CORPUSCULAR HGB 24.7 pg (27.0-31.0); MEAN CORPUSCULAR HGB CONC 30.4 g/dl (33.0-37.0); MEAN PLATELET VOLUME 10.3 fl (9.6-12.3); MONO # 0.2 10*3/uL (0.1-1.0); MONO % 5.5 % (3.0-9.0); NEUT # 2.9 10*3/uL (2.3-7.9); NEUT % 78.9 % (47.0-73.0); PLATELET COUNT AUTOMATED 149 10*3/uL (130-400); RED CELL DISTRI WIDTH 16.9 % (0-14.5); WHITE BLOOD COUNT 3.6 10*3/uL (4.8-10.8)
[2016-12-13 06:38] LABS: BUN 12 mg/dl (7-24); CARBON DIOXIDE 27 mmol/L (21-32); CHLORIDE 100 mmol/L (98-107); EST GLOM FILT AFRICAN AMERICAN > 60 ml/min; GLUCOSE 141 mg/dL (65-99); POTASSIUM 3.7 mmol/L (3.5-5.1); SODIUM 136 mmol/L (136-145)
[2016-12-13 08:00] VITALS: BP 143/68
[2016-12-13 12:00] VITALS: BP 135/66
[2016-12-13] MEDS ORDERED: PREDNISONE10 MG PO (13:44)
[2016-12-13] MEDS ORDERED: DULER200 INH (13:44)
[2016-12-13] MEDS ORDERED: LEVAQUIN500 M2 PO (13:44)
== END 2016-12-13 14:34 | disposition home or self-care (01) | DRG 191 ==
LOC: ED 23:25 → EDHOLD 12-12 01:01 → 4E 12-12 01:01
PROVIDERS: Emergency Medicine; Internal Medicine; Internal Medicine Hospice and Palliative Medicine
DX: J44.1 Chronic obstructive pulmonary disease with (acute) exacerbation (principal); E87.1 Hypo-osmolality and hyponatremia; E44.0 Moderate protein-calorie malnutrition; D64.9 Anemia, unspecified; E03.9 Hypothyroidism, unspecified; N40.1 Benign prostatic hyperplasia with lower urinary tract symptoms; H40.9 Unspecified glaucoma; I10 Essential (primary) hypertension; F17.200 Nicotine dependence, unspecified, uncomplicated; K21.9 Gastro-esophageal reflux disease without esophagitis; Z71.6 Tobacco abuse counseling; I25.2 Old myocardial infarction; Z85.038 Personal history of other malignant neoplasm of large intestine; Z87.440 Personal history of urinary (tract) infections; Z98.49 Cataract extraction status, unspecified eye; Z82.49 Family history of ischemic heart disease and other diseases of the circulatory system; Z91.041 Radiographic dye allergy status; Z88.6 Allergy status to analgesic agent; Z91.013 Allergy to seafood; Z79.51 Long term (current) use of inhaled steroids; Z79.2 Long term (current) use of antibiotics; Z79.899 Other long term (current) drug therapy; Z90.49 Acquired absence of other specified parts of digestive tract; Z68.23 Body mass index [BMI] 23.0-23.9, adult

== ENCOUNTER 2016-12-19 09:00 | Emergency (ER) | payer OTHER ==
[~2016-12-19] VITALS: Wt 72.6 kg
[~2016-12-19 09:00] MED LIST changes: +DULER200 INH
[2016-12-19 09:09] VITALS: BP 144/78
[2016-12-19 09:26] LABS: BILIRUBIN NEGATIVE (NEGATIVE); BLOOD NEGATIVE (NEGATIVE); CLARITY CLEAR (CLEAR); COLOR YELLOW (YELLOW); GLUCOSE NEGATIVE (NEGATIVE); KETONE NEGATIVE (NEGATIVE); LEUKO ESTERASE NEGATIVE (NEGATIVE); NITRITE NEGATIVE (NEGATIVE); PROTEIN NEGATIVE (NEGATIVE); SPECIFIC GRAVITY <= 1.005 (1.005-1.030); UROBILINOGEN 0.2 E.U./dl (0.2-1.0)
[2016-12-19 09:46] LABS: BASO % 0.2 % (0.0-1.0); EOS # 0.2 10*3/uL (0.0-0.4); EOS % 2.3 % (1.0-4.0); HEMATOCRIT 31.4 % (42.0-52.0); HEMOGLOBIN 9.9 g/dl (14.0-18.0); LYMPH # 1.5 10*3/uL (1.3-4.4); MEAN CELL VOLUME 79.9 fl (80.0-94.0); MEAN CORPUSCULAR HGB 25.2 pg (27.0-31.0); MEAN CORPUSCULAR HGB CONC 31.5 g/dl (33.0-37.0); MEAN PLATELET VOLUME 9.3 fl (9.6-12.3); MONO # 0.7 10*3/uL (0.1-1.0); MONO % 10.7 % (3.0-9.0); NEUT # 4.3 10*3/uL (2.3-7.9); NEUT % 64.3 % (47.0-73.0); PLATELET COUNT AUTOMATED 169 10*3/uL (130-400); RED BLOOD COUNT 3.93 10*6/uL (4.50-5.90); RED CELL DISTRI WIDTH 17.5 % (0-14.5); WHITE BLOOD COUNT 6.6 10*3/uL (4.8-10.8)
[2016-12-19 09:49] LABS: URINE REFLEX COMMENT NO (NO)
[2016-12-19 09:58] LABS: BUN 15 mg/dl (7-24); CARBON DIOXIDE 27 mmol/L (21-32); CHLORIDE 103 mmol/L (98-107); EST GLOM FILT AFRICAN AMERICAN > 60 ml/min; GLUCOSE 94 mg/dL (65-99); POTASSIUM 4.1 mmol/L (3.5-5.1); SODIUM 136 mmol/L (136-145)
== END 2016-12-19 11:56 | disposition home or self-care (01) ==
LOC: ED 09:00
PROVIDERS: Emergency Medicine
DX: R33.9 Retention of urine, unspecified (principal); J44.9 Chronic obstructive pulmonary disease, unspecified; K21.9 Gastro-esophageal reflux disease without esophagitis; I10 Essential (primary) hypertension; E03.9 Hypothyroidism, unspecified; I25.2 Old myocardial infarction; Z88.6 Allergy status to analgesic agent; Z91.041 Radiographic dye allergy status; Z91.013 Allergy to seafood; Z79.899 Other long term (current) drug therapy

== ENCOUNTER 2017-01-12 23:18 | Emergency (ER) | payer OTHER ==
[~2017-01-12] VITALS: Ht 170.1 cm; Wt 64.0 kg
[2017-01-12 23:20] VITALS: BP 160/84
[2017-01-12 23:42] LABS: BILIRUBIN NEGATIVE (NEGATIVE); BLOOD 3+ (NEGATIVE); CLARITY CLOUDY (CLEAR); COLOR RED (YELLOW); GLUCOSE NEGATIVE (NEGATIVE); KETONE TRACE (NEGATIVE); LEUKO ESTERASE 2+ (NEGATIVE); NITRITE POSITIVE (NEGATIVE); PROTEIN 3+ (NEGATIVE); SPECIFIC GRAVITY 1.015 (1.005-1.030)
[2017-01-12 23:51] LABS: RBC TNTC rbc/hpf (0-2); URINE REFLEX COMMENT YES (NO)
[2017-01-13] MEDS ORDERED: AMINOPHYLLIN200 MG PO (00:31)
== END 2017-01-13 01:04 | disposition home or self-care (01) ==
LOC: ED 23:18
PROVIDERS: Emergency Medicine Emergency Medical Services
DX: R31.9 Hematuria, unspecified (principal); N40.1 Benign prostatic hyperplasia with lower urinary tract symptoms; R35.0 Frequency of micturition; F17.200 Nicotine dependence, unspecified, uncomplicated; Z95.5 Presence of coronary angioplasty implant and graft; I10 Essential (primary) hypertension; K21.9 Gastro-esophageal reflux disease without esophagitis; E03.9 Hypothyroidism, unspecified; J44.9 Chronic obstructive pulmonary disease, unspecified; Z88.6 Allergy status to analgesic agent; Z91.041 Radiographic dye allergy status; Z91.013 Allergy to seafood; Z79.899 Other long term (current) drug therapy; Z85.038 Personal history of other malignant neoplasm of large intestine

== ENCOUNTER 2017-01-19 14:42 | Emergency (ER) | payer OTHER ==
[~2017-01-19] VITALS: Wt 64.0 kg
[~2017-01-19 14:42] MED LIST changes: +AMINOPHYLLIN200 MG PO
[2017-01-19 15:09] VITALS: BP 155/75
== END 2017-01-19 16:29 | disposition home or self-care (01) ==
LOC: ED 14:42
DX: M70.21 Olecranon bursitis, right elbow (principal); Y93.89 Activity, other specified; F17.200 Nicotine dependence, unspecified, uncomplicated; I10 Essential (primary) hypertension; K21.9 Gastro-esophageal reflux disease without esophagitis; E03.9 Hypothyroidism, unspecified; Z95.5 Presence of coronary angioplasty implant and graft; N40.0 Benign prostatic hyperplasia without lower urinary tract symptoms; J44.9 Chronic obstructive pulmonary disease, unspecified; Z88.6 Allergy status to analgesic agent; Z91.013 Allergy to seafood; Z91.041 Radiographic dye allergy status; Z79.899 Other long term (current) drug therapy

== ENCOUNTER → 2017-01-26 | Outpatient (CLI) | payer OTHER ==
[2017-01-26 12:25] LABS: BF LYMPHOCYTES 2 %; BF MACROPHAGES 22 %; BF MONOCYTES 3 %; BF NEUTROPHILS 72 %
[2017-01-26 12:26] LABS: BODY FLUID RBC 77500 /uL; BODY FLUID TYPE SYNOVIAL; BODY FLUID WBC 6863 /uL
== END | disposition home or self-care (01) ==
LOC: LAB 10:00
PROVIDERS: Physician Assistant
DX: M25.421 Effusion, right elbow (principal)

== ENCOUNTER 2017-07-25 06:59 | Inpatient (IN) | payer OTHER ==
[2017-07-25] VITALS (8 sets, daily range): BP systolic 129–165; BP diastolic 69–111
[~2017-07-25] VITALS: Ht 170.1 cm; Wt 60.8 kg
[~2017-07-25 06:59] MED LIST changes: +STIOLTO RESPIMAT4 GM INH
[2017-07-25 07:24] LABS: ABG BASE EXCESS 0.2 mmol/L (-2.0-2.0); ABG HCO3 25.4 mmol/l (22-26); ABG O2 SATURATION 97.4 % (95-97); ARTERIAL BLOOD GAS PCO2 44.2 mmHg (35-45); ARTERIAL BLOOD GAS PH 7.374 (7.35-7.45); ARTERIAL BLOOD GAS PO2 87.5 mmHg (80-90)
[2017-07-25 07:46] LABS: BASO % 0.6 % (0.0-1.0); EOS # 0.3 10*3/uL (0.0-0.4); EOS % 4.7 % (1.0-4.0); HEMATOCRIT 45.4 % (42.0-52.0); HEMOGLOBIN 15.6 g/dl (14.0-18.0); LYMPH # 1.1 10*3/uL (1.3-4.4); LYMPH % 14.6 % (27.0-41.0); MEAN CELL VOLUME 86.1 fl (80.0-94.0); MEAN CORPUSCULAR HGB 29.6 pg (27.0-31.0); MEAN CORPUSCULAR HGB CONC 34.4 g/dl (33.0-37.0); MEAN PLATELET VOLUME 9.2 fl (9.6-12.3); MONO # 0.6 10*3/uL (0.1-1.0); MONO % 8.4 % (3.0-9.0); NEUT # 5.1 10*3/uL (2.3-7.9); NEUT % 71.4 % (47.0-73.0); PLATELET COUNT AUTOMATED 120 10*3/uL (130-400); RED BLOOD COUNT 5.27 10*6/uL (4.50-5.90); RED CELL DISTRI WIDTH 16.4 % (0-14.5); WHITE BLOOD COUNT 7.2 10*3/uL (4.8-10.8)
[2017-07-25 07:55] LABS: INTERNATIONAL NORM RATIO 1.1 (2.0-3.5)
[2017-07-25 08:02] LABS: ALBUMIN 3.7 gm/dl (3.1-4.5); ALKALINE PHOSPHATASE 113 U/L (45-117); BUN 10 mg/dl (7-24); CHLORIDE 101 mmol/L (98-107); CREATININE 0.62 mg/dL (0.70-1.30); SGOT/AST 18 IU/L (3-35); SGPT/ALT 17 U/L (12-78); SODIUM 136 mmol/L (136-145); TOTAL PROTEIN 6.9 gm/dL (6.4-8.2)
[2017-07-25 08:12] LABS: TROPONIN I < 0.015 ng/ml (<0.045)
[2017-07-26] VITALS: BP 144/56
[2017-07-26 07:36] LABS: ACT PARTIAL THROMBO TIME 28.7 SECONDS (20.8-31.5); INTERNATIONAL NORM RATIO 1.1 (2.0-3.5)
[2017-07-26 07:40] LABS: BASO % 0.1 % (0.0-1.0); HEMATOCRIT 37.5 % (42.0-52.0); HEMOGLOBIN 12.6 g/dl (14.0-18.0); LYMPH # 0.6 10*3/uL (1.3-4.4); LYMPH % 9.3 % (27.0-41.0); MEAN CORPUSCULAR HGB 29.6 pg (27.0-31.0); MEAN CORPUSCULAR HGB CONC 33.6 g/dl (33.0-37.0); MONO # 0.5 10*3/uL (0.1-1.0); MONO % 7.3 % (3.0-9.0); NEUT # 5.6 10*3/uL (2.3-7.9); NEUT % 82.9 % (47.0-73.0); PLATELET COUNT AUTOMATED 106 10*3/uL (130-400); RED BLOOD COUNT 4.26 10*6/uL (4.50-5.90); RED CELL DISTRI WIDTH 16.4 % (0-14.5); WHITE BLOOD COUNT 6.7 10*3/uL (4.8-10.8)
[2017-07-26 07:55] LABS: ALBUMIN 2.9 gm/dl (3.1-4.5); BUN 9 mg/dl (7-24); CHLORIDE 104 mmol/L (98-107); CHOLESTEROL 141 mg/dL (<200); CREATININE 0.63 mg/dL (0.70-1.30); PHOSPHOROUS 2.3 mg/dL (2.5-4.9); POTASSIUM 3.7 mmol/L (3.5-5.1); SGOT/AST 15 IU/L (3-35); SGPT/ALT 14 U/L (12-78); SODIUM 138 mmol/L (136-145); TOTAL PROTEIN 5.5 gm/dL (6.4-8.2); TRIGLYCERIDES 46 mg/dl (<150); VLDL CHOLESTEROL 9 mg/dL (6-40)
[2017-07-26 08:00] VITALS: BP 136/68
[2017-07-26 08:02] LABS: ALKALINE PHOSPHATASE 84 U/L (45-117); HDL CHOLESTEROL 47 mg/dl (40-60); LDL CHOLESTEROL 85 mg/dL (9-159); THYROID STIM HORMONE (HS) 0.189 uIU/ml (0.358-4.75)
[2017-07-26 09:00] LABS: VITAMIN D, 25-HYDROXY 20.1 ng/mL (30-100)
[2017-07-26] MEDS ORDERED: LEVAQUIN750 M1 PO (11:18)
[2017-07-26] MEDS ORDERED: PREDNISONE10 MG PO (11:18)
[2017-07-26] MEDS ORDERED: Vitamin D PO (11:18)
[2017-07-26] MEDS ORDERED: VITAMIN D-32000 UNIT PO (11:22)
[2017-07-26 12:00] VITALS: BP 136/68
== END 2017-07-26 13:40 | disposition home or self-care (01) | DRG 871 ==
LOC: ED 06:59 → EDHOLD 07:46 → 4E 07:52
PROVIDERS: Emergency Medicine; Family Medicine
PROC: 5A09357 Assistance with Respiratory Ventilation, Less than 24 Consecutive Hours, Continuous Positive Airway Pressure (ICD-10-PCS; principal; 2017-07-25)
DX: A41.9 Sepsis, unspecified organism (principal); J18.9 Pneumonia, unspecified organism; Z99.81 Dependence on supplemental oxygen; D69.6 Thrombocytopenia, unspecified; J44.0 Chronic obstructive pulmonary disease with (acute) lower respiratory infection; J44.1 Chronic obstructive pulmonary disease with (acute) exacerbation; E03.9 Hypothyroidism, unspecified; H40.9 Unspecified glaucoma; I10 Essential (primary) hypertension; K21.9 Gastro-esophageal reflux disease without esophagitis; N40.0 Benign prostatic hyperplasia without lower urinary tract symptoms; R73.9 Hyperglycemia, unspecified; F41.0 Panic disorder [episodic paroxysmal anxiety]; D72.810 Lymphocytopenia; F17.210 Nicotine dependence, cigarettes, uncomplicated; Z85.038 Personal history of other malignant neoplasm of large intestine; Z71.6 Tobacco abuse counseling; Z79.899 Other long term (current) drug therapy; Z91.041 Radiographic dye allergy status; Z88.5 Allergy status to narcotic agent; Z91.013 Allergy to seafood; Z83.3 Family history of diabetes mellitus; Z82.49 Family history of ischemic heart disease and other diseases of the circulatory system

== ENCOUNTER → 2017-08-31 | Outpatient (CLI) | payer OTHER ==
[~2017-08-31] MED LIST changes: +VITAMIN D-32000 UNIT PO; +Vitamin D PO
== END | disposition home or self-care (01) ==
LOC: RAD 11:43
DX: J44.9 Chronic obstructive pulmonary disease, unspecified (principal); I10 Essential (primary) hypertension; F17.200 Nicotine dependence, unspecified, uncomplicated; J61 Pneumoconiosis due to asbestos and other mineral fibers

== ENCOUNTER 2017-09-16 01:40 | Inpatient (IN) | payer OTHER ==
[2017-09-16] VITALS (27 sets, daily range): BP systolic 90–220; BP diastolic 59–125
[~2017-09-16] VITALS: Ht 172.7 cm; Wt 64.4 kg
--- NOTE | ~2017-09-16 | PR ---
[place], [place] PROGRESS NOTE NAME: DAVID ZAVALA UNIT #: [id number] ROOM: 408 DOCTOR: RAE BUSTILLO MD,NAIMA BIRTHDATE: [birth year] DOS: 09/22/2017 PULMONARY PROGRESS NOTE SUBJECTIVE: The patient noted comfortable at this time. Continued to show reduction and improvement in respiratory symptoms, coughing, shortness of breath and other symptoms have been improving progressively. There was symptoms of chest pain. OBJECTIVE: VITAL SIGNS: For the patient, which have been recorded showed normal temperature, respiratory rate 20, heart rate 63, blood pressure 150/89. The pulse oxygen saturation on 2 liters nasal cannula 99% saturation. HEENT: No new change. NECK: Supple. Head was atraumatic. CARDIOVASCULAR: S1, S2 is audible. LUNGS: Without any wheeze, crackles. ABDOMEN: Soft, nontender. LABORATORY DATA: CBC normal. BMP was also noted grossly normal. IMPRESSION: The patient with progressive improvement of acute on chronic hypoxic and hypercapnic respiratory failure, resolving acute exacerbation of chronic obstructive pulmonary disease and acute bronchitis. PLAN OF MANAGEMENT: Reduce the Solu-Medrol dose to 40 mg daily. Continuation of the supportive plan of therapy and care as in progress. Usual care. NAIMA MCBRIDE MD CM:PNTRANS [phone] NAIMA BUSTILLO MD 09/22/17 2237 interface
--- NOTE | ~2017-09-16 | PR ---
[place], [place] PROGRESS NOTE NAME: DAVID ZAVALA UNIT #: [id number] ROOM: 408 DOCTOR: TRICIA STONER MD BIRTHDATE: [birth year] DOS: DICTATING FOR: Dr. Laguna. SUBJECTIVE: This patient was admitted to the hospital with respiratory failure and was in ____ at that time. His troponin was elevated slightly which he was diagnosed to be type 2 myocardial infarction, i.e., supply demand imbalance. He is rather feisty today, alert, oriented. He has oxygen on, but is not tachypneic. His appetite is fine. He is anxious to go home. He demands that he should not be sent to a care home. OBJECTIVE: GENERAL: He looks well. He is not tachypneic, has a large right subconjunctival hemorrhage. He has had it for many days. Complexion is fine. VITAL SIGNS: Pulse is regular at 76, blood pressure 146/74, previous blood pressure was mildly elevated. NECK: JVP is normal. LUNGS: Breath sounds are severely diminished with very few adventitious sounds. EXTREMITIES: There is no edema in the lower extremities. IMPRESSION: 1. Respiratory failure due to chronic obstructive pulmonary disease/infection. 2. Type 2 myocardial infarction is likely. 3. Hypertension. Perhaps will require a little better control. TRICIA STONER MD CM:PNTRANS [id number] TRICIA STONER MD 09/21/172142 interface
--- NOTE | ~2017-09-16 | PR ---
[place], [place] PROGRESS NOTE [id number] UNIT #: [id number] ROOM: [place] [address] DOCTOR: RAE BUSTILLO MD,NAIMA BIRTHDATE: [birth year] DOS: 09/17/2017 PULMONARY CRITICAL CARE EVALUATION AND MANAGEMENT SUBJECTIVE: The patient remains on mechanical ventilator at this time and sedated with intravenous Diprivan. He has not been noted with hemodynamic problems. The patient continued on the assist control mode mechanical ventilation as well. He had not been noted any hemodynamic instability. The patient has not reported any symptoms of increased secretion production from the endotracheal aspirate. He has not been reported any hemodynamic instability. The patient did not require any vasopressors at the present time. OBJECTIVE: VITAL SIGNS: For the patient which has been recorded shows the respiratory rate range between 18-16. The temperature was noted as normal. The heart rate ranges between 60-102, blood pressure 129/79-141/79. Intake for the patient recorded as 1600, output ____ mL even. Pulse oxygen saturation of the patient noted on 40% oxygen, 94% saturation. HEAD AND NECK: Examination shows the patient remained orally intubated, orogastric tube is in place. Feeding noted in progress. Neck was supple. Head was atraumatic. CARDIOVASCULAR SYSTEM: S1, S2 is audible. LUNGS: The patient was noted without any crackles. Decreased breath sounds are noted with scattered expiratory wheezing. ABDOMEN: Flat, soft, nontender. EXTREMITIES: Loss of muscle mass. MUSCULOSKELETAL SYMPTOMS: No deformities. SKIN: Visible skin, no lesions or rashes. LABORATORY DATA: Arterial blood gas that was done for the patient this morning assist control, volume control, mechanical ventilation, pH of 7.37, pCO2 of 45, pO2 of 70 with oxygen supplementation 35% at that time. CBC of the patient that was done on 09/17/2017, WBC count 10.3, hemoglobin and hematocrit normal, platelet count was mildly decreased 117,000. The CMP this morning, glucose 144, BUN 15, creatinine was normal. Prealbumin of 18. IMPRESSION: 1. The patient with acute severe exacerbation of chronic obstructive pulmonary disease noted with acute on chronic hypercapnic hypoxic respiratory failure. 2. Moderate protein-calorie malnutrition. 3. Over debility. 4. Resolution of high riding endotracheal tube. 4. History of nicotine dependence as well. PLAN OF MANAGEMENT: The patient's sedation has been discontinued. Started on CPAP 5, pressure support of 10 for about 30 minutes. The patient was noted with adequate tidal volume of 500-600 mL with respiratory rate about 18-20 with minute ventilation approximately 10 liters. He was not noted agitated at this time. The current mode of mechanical ventilation will be continued for additional total of 2 hours today. Arterial blood gas will be done after that. [place], [place] PROGRESS NOTE NAME: DAVID ZAVALA UNIT #: [id number] ROOM: [place] [address] DOCTOR: RAE BUSTILLO MD,NAIMA BIRTHDATE: [birth year] After review of the arterial blood gases, the clinical status of the patient might be considered for liberation from mechanical ventilation at that time. In the meantime, all other supportive therapy, plan of management continue, usual care. Supportive care and other treatment. Titrate oxygen to maintain a pulse oxygen saturation 90% or greater. Continue the nutrition support for the patient. Ventilator bundle management will be continued. The patient remains intubated. Total time for pulmonary critical care evaluation and management of this patient was 35 minutes. NAIMA MCBRIDE MD CM:EAMONTRANS [id number] NAIMA BUSTILLO MD 09/18/17 0303 interface
--- NOTE | ~2017-09-16 | CON ---
[place], [place] REPORT OF CONSULTATION NAME: DAVID ZAVALA UNIT #: [id number] ROOM: [facility] DOCTOR: TRICIA STONER MD BIRTHDATE: [birth year] DOS: 09/18/2017 HISTORY OF PRESENT ILLNESS: This is a 77-year-old -Thai man with a history of severe COPD, essential hypertension, GERD, hypothyroidism, who apparently has had a myocardial infarction in the past. I do not have the details. He has had colon cancer and had surgical treatment. Panic disorder and has used tobacco in the past. He has had a few surgical procedures including abdominal aortic aneurysm and repair. He had become increasingly short of breath for about 3-4 days prior to this admission and he had continued to use oxygen, but despite that, he became worse. He did not have any chest pain or palpitation. There is no loss of consciousness. He had no chills. When he arrived in the Emergency Department, systolic blood pressure was around 200. He was in much distress. HOME MEDICATIONS: Included ProAir, Norvasc, vitamin D, Colace, Trusopt eye drops, levothyroxine, metoprolol succinate 25 b.i.d. and prednisolone eyedrops and tobramycin eye drops. The patient was treated for COPD. Dr. Montoya was also consulted. His breathing did not improve much, but blood pressure did come down significantly. He had been getting IV fluids at 80 mL an hour at this time. PHYSICAL EXAMINATION: GENERAL: This is a patient who has BiPAP on. He is a fairly tachypneic. He is not cyanotic and dizzy, does not seem to anemic. He is moderately tachypneic. VITAL SIGNS: Pulse is 104 and regular, blood pressure 153/88. NECK: JVP is elevated. External jugular veins are rather prominent as well. HEART: Auscultation revealed distant heart sounds, no murmurs. EXTREMITIES: There is no edema in the lower extremity. Pedal pulses are palpable. RESPIRATORY: Breath sounds is moderate to severely reduced with adventitious sounds in both lungs. DIAGNOSTIC STUDIES: Chest x-ray did not demonstrate any pulmonary edema or infiltrates. An ECG on admission demonstrated normal sinus rhythm with poor R-wave progression, which was most likely due to lead misplacement since there is a dominant R-wave in V4. Troponin I level changed from 0.084 to 0.123, 0.160, 0.231. Electrolytes were normal. BUN and creatinine are also normal. Serum albumin is 3.5 g/dL. IMPRESSION: 1. Hypertension. This seemed to under much better control. 2. Slightly increased troponin I level is likely to be a type 2 myocardial infarction, namely supply the morning balance caused by respiratory failure, respiratory distress, tachycardia and hypertension. At this time, I do not see any reason to perform any further cardiac workup and echocardiogram was [place], [place] REPORT OF CONSULTATION NAME: DAVID ZAVALA UNIT #: [id number] ROOM: [facility] DOCTOR: GEORGIANA DOOLEY,TRICIA BIRTHDATE: [address] Ritchie was asked to read that and EF was 70% with borderline LVH and right ventricular systolic function was normal. I thank you on behalf of Dr. Laguna for this consult. TRICIA STONER MD CM:CONSTR:REPORT OF CONSULTATION 1807 09/18/17 7663 interface
--- NOTE | ~2017-09-16 | CON ---
[place], [place] REPORT OF CONSULTATION NAME: DAVID ZAVALA UNIT #: [id number] ROOM: [place] [address] DOCTOR: NAIMA ARRIAGA MD BIRTHDATE: [birth year] DOS: 09/16/2017 PULMONARY CRITICAL CARE EVALUATION AND MANAGEMENT CONSULTATION REQUESTED BY: Hospitalist services. REASON FOR CONSULTATION: Assess the patient's change in mental status with acute on chronic respiratory failure. History could not be obtained from the patient, most history is contained in the document. The patient is actual review of my past record for consultation. During his previous hospitalization, current documentation, by the primary care attending, other physician, and the nurse's notes. HISTORY OF PRESENT ILLNESS: This is a 77-year-old white male with past medical history of COPD, who has been reported with progressive increased shortness of breath for the past 2 to 3 days. Shortness of breath has been noted as progressively worsening. He started with symptoms of dry cough as well. He has not been able to expectorate any sputum. Wheezing was also noted with the patient. There were no symptoms of chest pain described. The patient has been brought to the hospital. The patient was noted with hypercapnia as well. Change in mental status noted, agitation. He has also noted some swelling around the eye as well. The patient was started on the BiPAP. The patient is noted very agitated, could not keep the BiPAP mask and he was advised for intubation and mechanical ventilation early this morning and as well asked for consultation. The patient is currently intubated, receiving assist control, volume control, and mechanical ventilation. He had not been noted any respiratory problem post-intubation. Oxygen supplementation has been gradually decreased. The orogastric tube was inserted. REVIEW OF SYSTEMS: Certainly could not be completed since the patient currently intubated on mechanical ventilation, now in the Emergency Room, the patient was discussed with symptoms of tingling sensation of the extremities. The patient has general weakness and fatigue. PAST MEDICAL HISTORY: Known for the patient's previous hospitalization in this hospital in 07/2016, the patient was treated at this time for acute exacerbation of COPD and other medical illnesses. 1. History of longstanding COPD/centrilobular emphysema. 2. Chronic nicotine dependence. 3. Asbestos exposure. 4. Abdominal aortic aneurysm. 5. BPH. 6. Essential hypertension. 7. Diverticulosis. 8. Hyperthyroidism. 9. History of coronary artery disease. PAST SURGICAL HISTORY: 1. Pilonidal cyst removal. [place], [place] REPORT OF CONSULTATION NAME: DAVID ZAVALA UNIT #: [id number] ROOM: [place] [address] DOCTOR: RAE BUSTILLO MD,NAIMA BIRTHDATE: [birth year] 2. Appendectomy. 3. Cardiac catheterization and coronary artery stents insertion. 4. Endovascular repair of the patient's abdominal aortic aneurysm. Acute coronary angioplasty. 5. Therapeutic bronchoscopy. SOCIAL HISTORY: The patient is and lives at home. Tobacco use was noted from the age of [age] years old, still smoking 3/4 to a pack of cigarettes per day actively reported. There were no history of alcohol use or illicit drug use reported. 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 FAMILY HISTORY: Unknown. MEDICATIONS: The medications which has been currently administered were noted as Mucinex, Lovenox for DVT prophylaxis, Solu-Medrol 60 mg q.8 hours, oral Protonix, DuoNeb q.4h., azithromycin, Rocephin, IV infusion of propofol continuous and p.r.n. use of Versed 5 mg q.8h. for agitation or sedation management. DRUG ALLERGIES: ALLERGY TO: 1. CODEINE. 2. IVP DYE. PHYSICAL EXAMINATION: GENERAL: A 77-year-old white male, who has been currently intubated on mechanical ventilation appeared to be debilitated and elderly with obvious assessment. The patient was considered with protein calorie malnutrition. His height were recorded with the nursing staff on the current admission as height of 5 feet 8 inches, weight of 135 pounds, BMI 20.6. VITAL SIGNS: Normal temperature, respiratory rate 21-20, heart rate 72-100, blood pressure of 90/59. Severely uncontrolled blood pressure noted as 220/108 on admission. Intake 1530 since admission, output was not documented this morning. The pulse oxygen saturation 50% oxygen at 97% saturation. HEENT: Head was atraumatic. Eyes nonicterus, some swelling around the eyes. NECK: Supple. CARDIOVASCULAR SYSTEM: S1, S2 audible. LUNGS: General reduction in the breath sounds bilaterally with moderate expiratory wheezing without any crackles. ABDOMEN: Soft, flat, nontender. EXTREMITIES: Loss of muscle mass. No edema, clubbing, or cyanosis. CENTRAL NERVOUS SYSTEM: Noted at this time, unable to assess, but the patient sedated, had not reported any past focal neurologic deficit. MUSCULOSKELETAL: No obvious deformity. SKIN: No lesions or rashes. LABORATORY DATA: CBC on 09/16/2017 was noted as normal CBC. PT/PTT on [place], [place] REPORT OF CONSULTATION NAME: DAVID ZAVALA UNIT #: [id number] ROOM: [place] [address] DOCTOR: RAE BUSTILLO MD,[facility] BIRTHDATE: [birth year] 09/16/2017, this morning was normal. CMP this morning, BUN normal, creatinine was normal, sodium 130, chloride of 94, normal CK-MB, troponin, and LFTs. Arterial blood gas pH of 7.34, pCO2 of 44, pO2 94, prior to intubation and mechanical ventilation. Arterial blood gas post-intubation, 50% oxygen, pH of 7.26, pCO2 of 56, pO2 of 84.9. After adjustment of the mechanical ventilation, increased the peak flow rate for this patient. Continue the setting with 50% oxygen, pH of 7.35, pCO2 of 42, and pO2 107. Troponin additional 2 sets were normal. Influenza A and B, nasal washing antigens were negative. The chest x-ray that was done was noted with changes of COPD without acute pulmonary infiltration. Admission chest x-ray post-intubation, endotracheal tube was noted, the tip about 5 cm above the lani level. NG tube was noted ending in the stomach. There was no acute area of infiltration, pulmonary venous congestion, changes of COPD persisted. IMPRESSION: 1. The patient currently admitted to the hospital noted with recurrence of the acute exacerbation of chronic obstructive pulmonary disease, acute hypercapnic respiratory failure with hypoxic respiratory failure as well. 2. Chronic nicotine dependence. 3. Acute exacerbation of chronic obstructive pulmonary disease. Possibility of viral infection or bacterial bronchitis would be considered. 4. Appearance of severe protein calorie malnutrition status as well with debility and loss of muscle mass. 5. Relatively high riding endotracheal tube as well. 6. History of past coronary artery disease. There was no evidence of acute myocardial infarction. PLAN OF MANAGEMENT: The patient is already intubated. A personal adjustment of mechanical ventilation done with improvement in the ventilatory status. Gradual reduction of the oxygen will be started to maintain pulse ox saturation 90% greater. Orogastric tube is already inserted and confirmed. The patient has been started on Pulmocare on 09/10/2017 at 70 mL an hour to maximize the nutritional support. Continue sedation with Diprivan. DVT prophylaxis, continue ventilator bundle management. The patient as well. Endotracheal aspirate has been ordered as well. Monitor other culture results. The bronchodilator to continue every 4 hours then to current dose of steroid therapy. Prealbumin level was ordered to be done in the morning. No changes in antibiotic at this time unless dictated by any new culture results. Also, advance the endotracheal tube 2.5 cm to keep the appropriate level. Supportive therapy, plan of management, other care for the patient as ongoing. Total time in pulmonary critical care evaluation and management today was 40 minutes. [place], [place] REPORT OF CONSULTATION NAME: DAVID ZAVALA Stephanie UNIT #: [id number] ROOM: [place] [address] DOCTOR: NAIMA ARRIAGA MD BIRTHDATE: [birth year] NAIMA MCBRIDE MD CM:CONSTR:REPORT OF CONSULTATION 1723 09/17/17 0619 interface
--- NOTE | ~2017-09-16 | PR ---
[place], [place] PROGRESS NOTE NAME: DAVID ZAVALA UNIT #: [id number] ROOM: 408 DOCTOR: RAE BUSTILLO MD,NAIMA BIRTHDATE: [birth year] DOS: 09/21/2017 SUBJECTIVE: The patient was noted comfortable at this time. Remains awake and alert, was ambulating with assistance. He was started on oral Bactrim ____ yesterday. OBJECTIVE: VITAL SIGNS: Normal temperature, respiratory rate of 19, heart rate 67, blood pressure 144/84. Pulse oxygen saturation on 3-1/2 liters cannula to 4 liters as 95%-98% saturation. HEENT: No acute change. CARDIOVASCULAR: S1, S2 audible. LUNGS: The patient was noted without any wheeze or crackles at present time. ABDOMEN: Soft, nontender. EXTREMITIES: Without any acute edema. IMPRESSION: The patient with progressive resolution of the acute exacerbation of chronic obstructive pulmonary disease with acute tracheobronchitis, resolving acute on chronic hypercapnic, hypoxic respiratory failure, Stenotrophomonas maltophilia, infection for this patient, which has been treated with the Bactrim ____. PLAN OF TREATMENT: Continuation of bronchodilators, oxygen supplementation and other therapy, plan of care as previously in progress. Usual care. Additional treatment changes for the patient needs to be made based on the progression of the illness. Supportive care and other plan of therapies. NAIMA MCBRIDE MD CM:PNTRANS [id number] [id number] NAIMA BUSTILLO MD 09/22/17 0149 interface
--- NOTE | ~2017-09-16 | PR ---
[place], [place] PROGRESS NOTE [id number] UN[facility] #: [id number] ROOM: [facility] DOCTOR: RAE BUSTILLO MD,NAIMA BIRTHDATE: [birth year] DOS: 09/20/2017 PULMONARY PROGRESS NOTE SUBJECTIVE: The patient was seen and examined on 09/20/2017. Remained in the Intensive Care Unit. He was using the BiPAP which the patient has ordered, noted comfortable. Cough has been noted some without any sputum expectoration. Denies symptoms of chest pain, hemoptysis. He has not been noted any discharge or pain in the eye. The patient has a previous cataract surgery done about 10 days ago. He denies any symptoms of hemoptysis or dizziness. Remaining systems were reviewed. They were noted all negative. OBJECTIVE: VITAL SIGNS: The patient showed normal temperature, respiratory rate 16, heart rate 71, blood pressure 160/89-142/72. Pulse oxygen saturation was noted as 93% saturation and 99 on high flow nasal cannula 8 liters. The BiPAP saturation noted as 100% on 40% oxygen. HEENT: Showed mild redness of the right eye. Head was atraumatic. Eyes nonicterus. NECK: Supple. CARDIOVASCULAR: S1, S2 audible. LUNGS: Noted without any wheeze or crackles. ABDOMEN: Soft, nontender. EXTREMITIES: Without any acute edema. LABORATORY DATA: The culture of the endotracheal aspirate noted light growth of Stenotrophomonas maltophilia. The BMP this morning was noted, BUN 18, creatinine was normal. Phosphorus 1.8. IMPRESSION: 1. Resolving acute pneumonia with acute exacerbation of chronic obstructive pulmonary disease. The gram-negative pneumonia noted with Stenotrophomonas maltophilia. 2. Improving acute exacerbation of chronic obstructive pulmonary disease gradually and progressive. 3. Severe protein-calorie malnutrition. 4. Debility. PLAN OF TREATMENT: Changing Solu-Medrol 40 mg q.8h. to 60 mg q.8h. Discontinuation of the antibiotics. The patient will be started on Bactrim-DS, which is the drug of choice for the patient's current infection. At this time, the patient will be started on one dose of Bactrim-DS twice a day, how the dose could be increased depends on response to the current treatment, if necessary. Continue maximizing nutrition support. Physical therapy, occupation therapy, and the plan of management and care. [place], [place] PROGRESS NOTE NAME: DAVID ZAVALA UNIT #: [id number] ROOM: [facility] DOCTOR: RAE BUSTILLO MD,NAIMA BIRTHDATE: [birth year] NAIMA MCBRIDE MD CM:PNTRANS 1400 [id number] NAIMA BUSTILLO MD 09/21/17 0038 interface
--- NOTE | ~2017-09-16 | PR ---
[place], [place] PROGRESS NOTE NAME: DAVID ZAVALA UNIT #: [id number] ROOM: [place] [address] DOCTOR: ZEB ARVIZU CRNA BIRTHDATE: [birth year] DOS: 09/16/2017 INTUBATION NOTE Called from home to intubate the patient per Dr. Montoya. The patient admitted with accelerated hypertension, exacerbation of COPD. The patient received multiple respiratory treatments, DuoNeb in the Emergency Department with steroids also. The patient admitted to the ICU. On arrival in the ICU, the patient noted to be in visible respiratory distress. The patient sitting leaning forward, very labored breathing, audible wheezing and rhonchi noted. Dr. Medrano, Dr. Rodney at bedside with the patient. ABGs: pH 7.34, pCO2 of 44, pO2 of 94, bicarbonate of 23.5. The patient noted to have oxygen saturation of 93% on 10 liters simple facemask. The patient sedated with propofol 50 mg. Intubation with GlideScope, confirmation of endotracheal tube placement with bilateral breath signs, waveform capnography with opening CO2 of 61. The patient suctioned for copious secretions by respiratory therapy. The patient placed on a vent. Tidal volume 500, rate of 12, PEEP of 5. The patient tolerated intubation well. ZEB ARVIZU CRNA CM:PNTRANS [id number] ZEB ARVIZU CRNA 09/16/17 1914 interface
--- NOTE | ~2017-09-16 | CON ---
[place], [place] REPORT OF CONSULTATION NAME: DAVID ZAVALA UNIT #: [id number] ROOM: [facility] DOCTOR: GEORGIANA DOOLEY,TRICIA BIRTHDATE: [birth year] DOS: ADDENDUM IMPRESSION: This patient probably has right heart failure since neck veins are quite distended. My recommendation would be to slowed on IV fluids. TRICIA STONER MD CM:CONSTR:REPORT OF CONSULTATION 1808 09/18/17 2307 interface
--- NOTE | ~2017-09-16 | PR ---
[place], [place] PROGRESS NOTE NAME: DAVID ZAVALA UNIT #: [id number] ROOM: [facility] DOCTOR: RAE BUSTILLO MD,NAIMA BIRTHDATE: [birth year] DOS: 09/19/2017 SUBJECTIVE: He has been noted comfortable, still noted psoqaqda-ey-yxexyj cough with minimal sputum expectoration. The patient has been using the BiPAP. Noted fully awake and alert. Denies symptoms of chest pain. He has arterial blood gases done today on the BiPAP, which are reviewed with a normal pH. He has not been noted symptoms of any hemoptysis. Denies abdominal pain. Does not have any symptoms of suprapubic pain or any muscle ache. Remaining systems reviewed. They were noted all negative. OBJECTIVE: VITAL SIGNS: The patient showed normal temperature, respiratory rate 16, heart rate of 76, blood pressure 170/83-159/86. Intake 3030, the output was not recorded. The pulse oxygen saturation BiPAP 98% with the nasal cannula was 98% saturation high flow nasal oxygen. HEENT: Examination shows head was atraumatic. Eyes nonicterus. Redness of the right eye for this patient was noted. NECK: Supple. CARDIOVASCULAR: S1, S2 audible. LUNGS: The patient noted with decreased breath sounds in the lung. The patient scattered expiratory wheezing without any crackles. ABDOMEN: Flat, soft, nontender. EXTREMITIES: Without edema. Chronic loss of muscle mass. MUSCULOSKELETAL: Without any acute deformities. SKIN: No abnormal lesions or rashes. LABORATORY DATA: Culture of the sputum, which was done on 09/16/2017 noted light growth of gram-negative bacilli, pending identification sensitivities. Arterial blood gas this morning 45% oxygen, BiPAP 16/10, pH of 7.40, pCO2 of 42, pO2 of 102. CBC: WBC count was normal, hemoglobin 12.6 and hematocrit 36.4, platelet count 103,000, 98% segmented neutrophils. CMP normal BUN and creatinine. Phosphorus was 1.8. IMPRESSION: 1. The patient was being currently noted with acute on chronic hypoxic respiratory failure. Chest x-ray done this morning was reviewed shows acute pneumonia in the left lung, new finding as compared which has gram-negative infection. 2. Severe protein-calorie malnutrition and overall debility as well. PLAN OF MANAGEMENT: Continuation of the oxygen supplementation and bronchodilators. Continue the BiPAP bedtime continuous and p.r.n. during the day. Continuation of the current antibiotic, changes in the antibiotic will be done based on the culture results availability. Other supportive therapy, plan and management previously. Additional treatment changes to be made for the patient based on the progression of the illness. Continue improve the nutritional status as well. The patient's oral intake was noted good at this time. All other plan of therapy and care. [place], [place] PROGRESS NOTE NAME: LUCASDAVID E UNIT #: [id number] ROOM: [facility] DOCTOR: NAIMA ARRIAGA MD BIRTHDATE: [birth year] NAIMA MCBRIDE MD CM:PNBERTHA 0912 1050 NAIMA BUSTILLO MD 09/19/17 1048 interface
--- NOTE | ~2017-09-16 | EKG ---
[place], [place] ELECTROCARDIOGRAM REPORT NAME: DAVID ZAVALA UNIT #: [id number] ROOM: [place] [address] DOCTOR: RAE BUSTILLO MD,NAIMA BIRTHDATE: [birth year] DOS: 09/16/2017 The electrocardiogram done on 09/16/2017 at 1:49 a.m. Normal sinus rhythm noted. Heart rate 72 beats per minute. LVH noted voltage criteria in the chest leads. NAIMA MCBRIDE MD CM:EKGRPT:ELECTROCARDIOGRAM REPORT 1728 1842 NAIMA BUSTILLO MD
--- NOTE | ~2017-09-16 | PR ---
[place], [place] PROGRESS NOTE NAME: [id number] UNIT #: [id number] ROOM: [facility] DOCTOR: RAE BUSTILLO MDNAIMA BIRTHDATE: [birth year] DOS: 09/18/2017 SUBJECTIVE: The patient was seen and examined on 09/18/2017. He has been liberated from mechanical ventilator yesterday. The patient was noted with agitation last night as well as shortness of breath and other symptoms last evening. He was not tolerating the BiPAP as well. The patient was ordered Haldol to be given intravenously. After administration of the dose of 2.5 mg of Haldol, the patient was noted comfortable. He has used the BiPAP. This morning, the patient was noted on high flow nasal cannula of oxygen, but tolerating the BiPAP earlier. He has not been noted with symptoms of chest pain. He stated that he does not wish to use the BiPAP, but have used it for the respiratory management. He has been noted with a cough, which has been noted hard and deep and not expectorating any sputum. He had not been noted with any symptoms of chest pain or any abdominal pain. The patient has not been noted with any symptoms of edema or pain of the lower extremity. He has not reported any symptoms of hemoptysis. He has been noted with generalized weakness and fatigue. Mild redness of the right eye was also noted as well. OBJECTIVE: GENERAL: A 77-year-old male, currently sitting on his bed, on high flow oxygen supplementation nasal cannula on this morning of assessment. VITAL SIGNS: Recorded, shows the temperature noted 99.3 degree Fahrenheit to normal temperature, respiratory rate 14-16, heart rate of 90-122 earlier with sinus tachycardia. Blood pressure 146/84-150/88. HEENT: Examination shows head was atraumatic. Mild redness of the right eye of the patient as well. CARDIOVASCULAR: S1, S2 is audible. LUNGS: The patient was noted without any wheezing or crackles at the present time. Breaths are noted generally diminished bilaterally. ABDOMEN: Soft, nontender. EXTREMITIES: The patient was noted without any edema, clubbing, or cyanosis. SKIN: No lesions or rashes. MUSCULOSKELETAL: Without acute deformities. CENTRAL NERVOUS SYSTEM: Noted intact. There were no focal deficits. LABORATORY DATA: Culture of the endotracheal aspirate of the patient preliminarily noted as normal vickie, final culture results were pending. CBC this morning, WBC count normal, hemoglobin 12.2, hematocrit 36.1, platelet count 110,000. CMP this morning, normal BUN and creatinine, glucose 117, phosphorus 1.8, magnesium 2.3, total protein of 5.7. Arterial blood gas was also obtained this morning for the patient with 70% oxygen on the BiPAP. The patient's pH was 7.38, pCO2 of 43, pO2 of 147. Blood culture of the patient, no bacterial growth from 09/16/2017. The troponin of the patient was noted with mild elevation of the troponin yesterday at 0.291. ABG that was done yesterday on 6 liters, pH of 7.36, pCO2 of 41, pO2 of 65.7. IMPRESSION: 1. The patient who has been currently noted with persistent acute severe hypoxic respiratory failure, hypercapnia. 2. Acute severe exacerbation of chronic obstructive pulmonary disease as well. [place], [place] PROGRESS NOTE NAME: DAVID ZAVALA UNIT #: [id number] ROOM: [facility] DOCTOR: RAE BUSTILLO MD,[facility] BIRTHDATE: [birth year] 3. Protein calorie malnutrition as well with severe debility as well. 4. The patient with agitated behavior noted at times, currently noted better with use of the Haldol. 5. Severe debility, remains persistent. PLAN OF MANAGEMENT: The patient would be continued the BiPAP and Haldol p.r.n. 2.5 mg q. 4 hours will be used for any agitation. At this time, the patient would not require any immediate intubation. The BiPAP support should be used for the patient to help stabilize respiratory status in the Intensive Care Unit. Keep the patient in the Intensive Care Unit for close monitoring of respiratory failure management. Titrate oxygen to maintain saturation 90% or greater. Obtain a chest x-ray of the patient today in the morning for the patient to reassess. Other supportive therapy, plan of management and care plan. Additional treatment changes to be made for the patient based on the progression of the illness. Total time in pulmonary critical care evaluation and management was 32 minutes. NAIMA MCBRIDE MD CM:PNTRANS [id number] NAIMA BUSTILLO MD 09/19/17 0017 interface
--- NOTE | ~2017-09-16 | PR ---
[place], [place] PROGRESS NOTE NAME: DAVID ZAVALA UNIT #: [id number] ROOM: [facility] DOCTOR: TRICIA STONER MD BIRTHDATE: [birth year] DOS: 09/19/2017 I am seeing this patient on behalf of Dr. Laguna. I saw this patient yesterday. He was in much respiratory distress because of exacerbation of COPD. A troponin I level was slightly increased and the possibility of myocardial infarction was entertained. He has essential hypertension. Blood pressure had been fairly high as well on admission and yesterday. OBJECTIVE: GENERAL: He is sitting on side of the bed, quite short of breath and has oxygen on by nasal cannula. He is dusky, but not anemic. He is not febrile. VITAL SIGNS: Pulse is regular at 84, blood pressure 157/81. NECK: Normal JVP. LUNGS: Breath sounds are severely diminished with inspiratory and expiratory crackles and rhonchi with prolonged expiratory phase. EXTREMITIES: No edema in the lower extremity. Monitor shows normal sinus rhythm. IMPRESSION: 1. The patient's troponin I level was due to type 2 myocardial infarction. 2. Hypertension is better controlled. No new recommendations. TRICIA STONER MD CM:PNTRANS [id number] TRICIA STONER MD 09/19/176 interface
--- NOTE | ~2017-09-16 | PR ---
[place], [place] PROGRESS NOTE NAME: DAVID ZAVALA UNIT #: [id number] ROOM: 408 DOCTOR: ELIZABETH BUCHANAN MD BIRTHDATE: [birth year] DOS: 09/22/2017 SUBJECTIVE: The patient was seen by Dr. Davenport when I was away. The patient apparently has COPD exacerbation, has done quite well. He is comfortable. OBJECTIVE: VITAL SIGNS: Blood pressure is 140/70. He is in sinus rhythm. GENERAL: He is awake, alert and responsive. No nausea, no vomiting. No chest discomfort, no lightheadedness. HEENT: Unremarkable. NECK: Supple, no JVD, no thyromegaly, no lymphadenopathy. LUNGS: No respiratory distress, dyspnea on exertion, or cough, clear. No rhonchi. Mild wheezing is present which is improving. HEART: Cardiac status is stable. EXTREMITIES: About 2+ edema. ABDOMEN: Soft, nontender. NEUROLOGIC: Stable. LABORATORY DATA: Sodium 134, potassium 4.4. GFR is normal. Hemoglobin 15 and hematocrit 44. IMPRESSION: Acute on chronic respiratory failure with hypoxemia, chronic obstructive pulmonary disease exacerbation, pneumonitis, hypertensive emergency. Blood pressure is significantly improved. RECOMMENDATIONS: Continue the present medications. Monitor the blood pressure and heart rate closely. Continue the respiratory toilet as ordered and I will closely follow up. ELIZABETH BUCHANAN MD CM:PNTRANS [id number] ELIZABETH BUCHANAN MD 09/22/17 0740 interface
[~2017-09-16 01:40] MED LIST changes: -TRUSOPT 5 ML5 ML OU; +TRUSOPT OCUMETE10 ML OS
[2017-09-16 02:06] LABS: BASO # 0.1 10*3/uL (0.0-0.1); BASO % 0.5 % (0.0-1.0); EOS # 0.1 10*3/uL (0.0-0.4); EOS % 0.8 % (1.0-4.0); HEMATOCRIT 46.6 % (42.0-52.0); HEMOGLOBIN 16.2 g/dl (14.0-18.0); LYMPH # 0.9 10*3/uL (1.3-4.4); MEAN CELL VOLUME 87.4 fl (80.0-94.0); MEAN CORPUSCULAR HGB 30.4 pg (27.0-31.0); MEAN CORPUSCULAR HGB CONC 34.8 g/dl (33.0-37.0); MEAN PLATELET VOLUME 10.1 fl (9.6-12.3); MONO # 0.6 10*3/uL (0.1-1.0); MONO % 5.6 % (3.0-9.0); NEUT # 8.4 10*3/uL (2.3-7.9); NEUT % 83.7 % (47.0-73.0); PLATELET COUNT AUTOMATED 130 10*3/uL (130-400); RED BLOOD COUNT 5.33 10*6/uL (4.50-5.90); RED CELL DISTRI WIDTH 14.1 % (0-14.5)
[2017-09-16 02:23] LABS: ALBUMIN 3.8 gm/dl (3.1-4.5); ALKALINE PHOSPHATASE 115 U/L (45-117); BUN 9 mg/dl (7-24); CHLORIDE 94 mmol/L (98-107); CREATININE 0.56 mg/dL (0.70-1.30); POTASSIUM 3.9 mmol/L (3.5-5.1); SGOT/AST 19 IU/L (3-35); SGPT/ALT 18 U/L (12-78); SODIUM 130 mmol/L (136-145); TOTAL PROTEIN 7.3 gm/dL (6.4-8.2)
[2017-09-16 02:24] LABS: TROPONIN I < 0.015 ng/ml (<0.045)
[2017-09-16 03:56] LABS: ABG HCO3 23.5 mmol/l (22-26); ABG O2 SATURATION 96.8 % (95-97); ARTERIAL BLOOD GAS PH 7.345 (7.35-7.45); ARTERIAL BLOOD GAS PO2 94.4 mmHg (80-90)
[2017-09-16 05:39] LABS: BUN 10 mg/dl (7-24); CHLORIDE 96 mmol/L (98-107); CREATININE 0.49 mg/dL (0.70-1.30); PHOSPHOROUS 2.7 mg/dL (2.5-4.9); POTASSIUM 3.7 mmol/L (3.5-5.1); SODIUM 131 mmol/L (136-145)
[2017-09-16 05:45] LABS: THYROID STIM HORMONE (HS) 0.529 uIU/ml (0.358-4.75)
[2017-09-16 05:48] LABS: HEMATOCRIT 45.1 % (42.0-52.0); HEMOGLOBIN 15.9 g/dl (14.0-18.0); MEAN CELL VOLUME 88.3 fl (80.0-94.0); MEAN CORPUSCULAR HGB 31.1 pg (27.0-31.0); MEAN CORPUSCULAR HGB CONC 35.3 g/dl (33.0-37.0); MEAN PLATELET VOLUME 10.7 fl (9.6-12.3); PLATELET COUNT AUTOMATED 126 10*3/uL (130-400); RED BLOOD COUNT 5.11 10*6/uL (4.50-5.90); RED CELL DISTRI WIDTH 14.2 % (0-14.5); WHITE BLOOD COUNT 9.3 10*3/uL (4.8-10.8)
[2017-09-16 06:51] LABS: BURR CELLS FEW; PLATELET SUFFICIENCY LOW (NORMAL); TOTAL CELLS COUNTED 100 #CELLS
[2017-09-16 07:01] LABS: ABG BASE EXCESS -2.9 mmol/L (-2.0-2.0); ABG O2 SATURATION 95.2 % (95-97); ARTERIAL BLOOD GAS PCO2 56.5 mmHg (35-45); ARTERIAL BLOOD GAS PH 7.265 (7.35-7.45); ARTERIAL BLOOD GAS PO2 84.9 mmHg (80-90)
[2017-09-16 09:58] LABS: ABG HCO3 23.5 mmol/l (22-26); ABG O2 SATURATION 98.3 % (95-97); ARTERIAL BLOOD GAS PCO2 42.2 mmHg (35-45); ARTERIAL BLOOD GAS PH 7.357 (7.35-7.45)
[2017-09-16] MEDS ORDERED: NORVASC5 MG PO (11:32)
[2017-09-16] MEDS ORDERED: COLACE100 MG PO (11:33)
[2017-09-16] MEDS ORDERED: TOBRADEX 0.3-03.5 GM OD (11:34)
[2017-09-16] MEDS ORDERED: PREDNISOLONE ACE5 M2 OD (11:38)
[2017-09-16] MEDS ORDERED: Tobrex Ophth S2.5 ML OD (11:41)
[2017-09-17] VITALS (11 sets, daily range): BP systolic 115–159; BP diastolic 69–90
[2017-09-17 05:57] LABS: BASO % 0.1 % (0.0-1.0); HEMATOCRIT 41.1 % (42.0-52.0); LYMPH # 0.5 10*3/uL (1.3-4.4); LYMPH % 4.9 % (27.0-41.0); MEAN CELL VOLUME 89.3 fl (80.0-94.0); MEAN CORPUSCULAR HGB 30.4 pg (27.0-31.0); MEAN CORPUSCULAR HGB CONC 34.1 g/dl (33.0-37.0); MEAN PLATELET VOLUME 10.4 fl (9.6-12.3); MONO # 0.7 10*3/uL (0.1-1.0); MONO % 6.3 % (3.0-9.0); PLATELET COUNT AUTOMATED 117 10*3/uL (130-400); RED CELL DISTRI WIDTH 14.4 % (0-14.5); WHITE BLOOD COUNT 10.3 10*3/uL (4.8-10.8)
[2017-09-17 06:07] LABS: ALBUMIN 3.3 gm/dl (3.1-4.5); ALKALINE PHOSPHATASE 92 U/L (45-117); BUN 15 mg/dl (7-24); CHLORIDE 101 mmol/L (98-107); CREATININE 0.61 mg/dL (0.70-1.30); POTASSIUM 3.7 mmol/L (3.5-5.1); SGOT/AST 17 IU/L (3-35); SGPT/ALT 14 U/L (12-78); SODIUM 136 mmol/L (136-145); TOTAL PROTEIN 6.3 gm/dL (6.4-8.2)
[2017-09-17 06:08] LABS: PREALBUMIN 18 mg/dl (20-40)
[2017-09-17 06:33] LABS: ABG BASE EXCESS 0.4 mmol/L (-2.0-2.0); ABG HCO3 25.5 mmol/l (22-26); ABG O2 SATURATION 94.2 % (95-97); ARTERIAL BLOOD GAS PCO2 45.3 mmHg (35-45); ARTERIAL BLOOD GAS PH 7.37 (7.35-7.45); ARTERIAL BLOOD GAS PO2 70.3 mmHg (80-90)
[2017-09-17 11:47] LABS: ABG HCO3 22.3 mmol/l (22-26); ABG O2 SATURATION 95.5 % (95-97); ARTERIAL BLOOD GAS PCO2 48.7 mmHg (35-45); ARTERIAL BLOOD GAS PH 7.286 (7.35-7.45)
[2017-09-17 15:07] LABS: ABG BASE EXCESS -0.7 mmol/L (-2.0-2.0); ABG O2 SATURATION 96.9 % (95-97); ARTERIAL BLOOD GAS PH 7.374 (7.35-7.45); ARTERIAL BLOOD GAS PO2 86.2 mmHg (80-90)
[2017-09-17 19:19] LABS: ABG BASE EXCESS -1.9 mmol/L (-2.0-2.0); ABG HCO3 22.8 mmol/l (22-26); ABG O2 SATURATION 92.4 % (95-97); ARTERIAL BLOOD GAS PCO2 41.3 mmHg (35-45); ARTERIAL BLOOD GAS PH 7.362 (7.35-7.45); ARTERIAL BLOOD GAS PO2 65.7 mmHg (80-90)
[2017-09-18] VITALS: BP 133/82
[2017-09-18 04:00] VITALS: BP 150/88
[2017-09-18 05:55] LABS: HEMATOCRIT 36.1 % (42.0-52.0); HEMOGLOBIN 12.2 g/dl (14.0-18.0); MEAN CELL VOLUME 90.3 fl (80.0-94.0); MEAN CORPUSCULAR HGB 30.5 pg (27.0-31.0); MEAN CORPUSCULAR HGB CONC 33.8 g/dl (33.0-37.0); MEAN PLATELET VOLUME 10.7 fl (9.6-12.3); PLATELET COUNT AUTOMATED 110 10*3/uL (130-400); RED CELL DISTRI WIDTH 14.8 % (0-14.5); WHITE BLOOD COUNT 10.6 10*3/uL (4.8-10.8)
[2017-09-18 06:01] LABS: ALBUMIN 3.2 gm/dl (3.1-4.5); BUN 19 mg/dl (7-24); CHLORIDE 106 mmol/L (98-107); POTASSIUM 3.7 mmol/L (3.5-5.1); SODIUM 140 mmol/L (136-145)
[2017-09-18 06:06] LABS: ALKALINE PHOSPHATASE 69 U/L (45-117); CREATININE 0.48 mg/dL (0.70-1.30); PHOSPHOROUS 1.8 mg/dL (2.5-4.9); SGOT/AST 23 IU/L (3-35); SGPT/ALT 17 U/L (12-78); TOTAL PROTEIN 5.7 gm/dL (6.4-8.2)
[2017-09-18 06:31] LABS: PLATELET SUFFICIENCY LOW (NORMAL); TOTAL CELLS COUNTED 100 #CELLS
[2017-09-18 07:21] LABS: ABG BASE EXCESS 0.4 mmol/L (-2.0-2.0); ABG HCO3 25.1 mmol/l (22-26); ABG O2 SATURATION 99.1 % (95-97); ARTERIAL BLOOD GAS PH 7.384 (7.35-7.45)
[2017-09-18 08:00] VITALS: BP 146/84
[2017-09-18 12:00] VITALS: BP 153/91
[2017-09-18 16:00] VITALS: BP 153/88
[2017-09-18 20:00] VITALS: BP 167/80
[2017-09-19] VITALS (7 sets, daily range): BP systolic 139–170; BP diastolic 69–86
[2017-09-19 05:06] LABS: HEMATOCRIT 36.4 % (42.0-52.0); HEMOGLOBIN 12.6 g/dl (14.0-18.0); MEAN CORPUSCULAR HGB 31.5 pg (27.0-31.0); MEAN CORPUSCULAR HGB CONC 34.6 g/dl (33.0-37.0); PLATELET COUNT AUTOMATED 103 10*3/uL (130-400); RED CELL DISTRI WIDTH 14.9 % (0-14.5); WHITE BLOOD COUNT 8.4 10*3/uL (4.8-10.8)
[2017-09-19 05:22] LABS: ALBUMIN 3.2 gm/dl (3.1-4.5); ALKALINE PHOSPHATASE 70 U/L (45-117); BUN 20 mg/dl (7-24); CHLORIDE 106 mmol/L (98-107); CREATININE 0.35 mg/dL (0.70-1.30); PHOSPHOROUS 1.8 mg/dL (2.5-4.9); SGOT/AST 35 IU/L (3-35); SGPT/ALT 23 U/L (12-78); SODIUM 140 mmol/L (136-145); TOTAL PROTEIN 5.8 gm/dL (6.4-8.2)
[2017-09-19 05:29] LABS: PLATELET SUFFICIENCY LOW (NORMAL); TOTAL CELLS COUNTED 100 #CELLS
[2017-09-19 06:36] LABS: ABG BASE EXCESS 1.1 mmol/L (-2.0-2.0); ABG HCO3 25.8 mmol/l (22-26)
[2017-09-19 06:37] LABS: ARTERIAL BLOOD GAS PH 7.401 (7.35-7.45)
[2017-09-20] VITALS: BP 166/92
[2017-09-20 04:00] VITALS: BP 160/88
[2017-09-20 05:29] LABS: BUN 18 mg/dl (7-24); CHLORIDE 102 mmol/L (98-107); CREATININE 0.46 mg/dL (0.70-1.30); PHOSPHOROUS 1.8 mg/dL (2.5-4.9); POTASSIUM 4.3 mmol/L (3.5-5.1); SODIUM 137 mmol/L (136-145)
[2017-09-20 08:00] VITALS: BP 142/72
[2017-09-20 12:00] VITALS: BP 160/89
[2017-09-20 16:00] VITALS: BP 133/85
[2017-09-20 20:00] VITALS: BP 161/89
[2017-09-21] VITALS: BP 167/89
[2017-09-21 04:00] VITALS: BP 165/86
[2017-09-21 05:38] LABS: BUN 17 mg/dl (7-24); CHLORIDE 97 mmol/L (98-107); PHOSPHOROUS 1.6 mg/dL (2.5-4.9); POTASSIUM 4.4 mmol/L (3.5-5.1); SODIUM 134 mmol/L (136-145)
[2017-09-21 05:49] LABS: BASO % 0.1 % (0.0-1.0); HEMATOCRIT 44.2 % (42.0-52.0); LYMPH # 0.6 10*3/uL (1.3-4.4); LYMPH % 6.1 % (27.0-41.0); MEAN CELL VOLUME 89.5 fl (80.0-94.0); MEAN CORPUSCULAR HGB 30.4 pg (27.0-31.0); MEAN CORPUSCULAR HGB CONC 33.9 g/dl (33.0-37.0); MEAN PLATELET VOLUME 10.2 fl (9.6-12.3); MONO # 0.6 10*3/uL (0.1-1.0); MONO % 6.5 % (3.0-9.0); NEUT # 8.1 10*3/uL (2.3-7.9); NEUT % 86.1 % (47.0-73.0); PLATELET COUNT AUTOMATED 148 10*3/uL (130-400); RED BLOOD COUNT 4.94 10*6/uL (4.50-5.90); RED CELL DISTRI WIDTH 14.2 % (0-14.5); WHITE BLOOD COUNT 9.4 10*3/uL (4.8-10.8)
[2017-09-21 08:11] VITALS: BP 144/84
[2017-09-21 12:10] VITALS: BP 146/74
[2017-09-21 20:00] VITALS: BP 149/84
[2017-09-22] VITALS: BP 119/71
[2017-09-22 07:12] LABS: BASO % 0.2 % (0.0-1.0); HEMATOCRIT 43.8 % (42.0-52.0); HEMOGLOBIN 15.5 g/dl (14.0-18.0); LYMPH # 0.7 10*3/uL (1.3-4.4); MEAN CELL VOLUME 88.7 fl (80.0-94.0); MEAN CORPUSCULAR HGB 31.4 pg (27.0-31.0); MEAN CORPUSCULAR HGB CONC 35.4 g/dl (33.0-37.0); MEAN PLATELET VOLUME 9.9 fl (9.6-12.3); MONO # 0.6 10*3/uL (0.1-1.0); MONO % 7.5 % (3.0-9.0); NEUT # 6.9 10*3/uL (2.3-7.9); NEUT % 82.3 % (47.0-73.0); PLATELET COUNT AUTOMATED 146 10*3/uL (130-400); RED BLOOD COUNT 4.94 10*6/uL (4.50-5.90); RED CELL DISTRI WIDTH 14.2 % (0-14.5); WHITE BLOOD COUNT 8.4 10*3/uL (4.8-10.8)
[2017-09-22 07:29] LABS: BUN 13 mg/dl (7-24); CHLORIDE 95 mmol/L (98-107); POTASSIUM 4.3 mmol/L (3.5-5.1); SODIUM 132 mmol/L (136-145)
[2017-09-22 07:30] LABS: CREATININE 0.52 mg/dL (0.70-1.30); PHOSPHOROUS 2.1 mg/dL (2.5-4.9)
[2017-09-22 08:00] VITALS: BP 158/89
[2017-09-22] MEDS ORDERED: SEPTDS PO (10:41)
[2017-09-22] MEDS ORDERED: PREDNISONE10 MG PO (10:41)
[2017-09-22] MEDS ORDERED: MUCINEX ER600 MG PO (10:42)
== END 2017-09-22 12:18 | disposition home or self-care (01) | DRG 871 ==
LOC: ED 01:40 → ICCU 02:50 → 4E 09-21 15:21
PROVIDERS: Emergency Medicine Emergency Medical Services; Internal Medicine; Internal Medicine Critical Care Medicine; Student in an Organized Health Care Education/Training Program
PROC: 5A09357 Assistance with Respiratory Ventilation, Less than 24 Consecutive Hours, Continuous Positive Airway Pressure (ICD-10-PCS; principal; 2017-09-16)
PROC: 0BH17EZ Insertion of Endotracheal Airway into Trachea, Via Natural or Artificial Opening (ICD-10-PCS; principal; 2017-09-16)
PROC: 5A1945Z Respiratory Ventilation, 24-96 Consecutive Hours (ICD-10-PCS; principal; 2017-09-16)
PROC: 5A09457 Assistance with Respiratory Ventilation, 24-96 Consecutive Hours, Continuous Positive Airway Pressure (ICD-10-PCS; 2017-09-17)
PROC: 5A09357 Assistance with Respiratory Ventilation, Less than 24 Consecutive Hours, Continuous Positive Airway Pressure (ICD-10-PCS; 2017-09-20)
PROC: 5A09357 Assistance with Respiratory Ventilation, Less than 24 Consecutive Hours, Continuous Positive Airway Pressure (ICD-10-PCS; 2017-09-21)
DX: A41.9 Sepsis, unspecified organism (principal); J96.21 Acute and chronic respiratory failure with hypoxia; I21.A1 Myocardial infarction type 2; E43 Unspecified severe protein-calorie malnutrition; J15.6 Pneumonia due to other Gram-negative bacteria; D69.6 Thrombocytopenia, unspecified; G93.41 Metabolic encephalopathy; E87.0 Hyperosmolality and hypernatremia; E87.8 Other disorders of electrolyte and fluid balance, not elsewhere classified; E87.1 Hypo-osmolality and hyponatremia; J96.22 Acute and chronic respiratory failure with hypercapnia; J44.0 Chronic obstructive pulmonary disease with (acute) lower respiratory infection; J44.1 Chronic obstructive pulmonary disease with (acute) exacerbation; I16.1 Hypertensive emergency; R65.20 Severe sepsis without septic shock; J20.9 Acute bronchitis, unspecified; N40.0 Benign prostatic hyperplasia without lower urinary tract symptoms; K21.9 Gastro-esophageal reflux disease without esophagitis; H40.9 Unspecified glaucoma; I10 Essential (primary) hypertension; F41.0 Panic disorder [episodic paroxysmal anxiety]; K57.90 Diverticulosis of intestine, part unspecified, without perforation or abscess without bleeding; E03.9 Hypothyroidism, unspecified; R73.9 Hyperglycemia, unspecified; E55.9 Vitamin D deficiency, unspecified; D72.810 Lymphocytopenia; F17.210 Nicotine dependence, cigarettes, uncomplicated; Z71.6 Tobacco abuse counseling; I25.2 Old myocardial infarction; Z85.038 Personal history of other malignant neoplasm of large intestine; Z79.899 Other long term (current) drug therapy; Z91.041 Radiographic dye allergy status; Z98.41 Cataract extraction status, right eye; Z68.20 Body mass index [BMI] 20.0-20.9, adult; Z88.5 Allergy status to narcotic agent; Z91.013 Allergy to seafood; Z83.3 Family history of diabetes mellitus; Z82.49 Family history of ischemic heart disease and other diseases of the circulatory system

== ENCOUNTER 2017-09-22 23:40 | Emergency (ER) | payer OTHER ==
[~2017-09-22] VITALS: Ht 170.1 cm; Wt 63.5 kg
[~2017-09-22 23:40] MED LIST changes: +COLACE100 MG PO; +MUCINEX ER600 MG PO; +PREDNISOLONE ACE5 M2 OD; +SEPTDS PO; +TOBRADEX 0.3-03.5 GM OD; +Tobrex Ophth S2.5 ML OD
[2017-09-23 00:37] VITALS: BP 142/85
[2017-09-23 00:38] LABS: BILIRUBIN NEGATIVE (NEGATIVE); BLOOD 2+ (NEGATIVE); CLARITY CLEAR (CLEAR); COLOR YELLOW (YELLOW); GLUCOSE NEGATIVE (NEGATIVE); KETONE NEGATIVE (NEGATIVE); LEUKO ESTERASE NEGATIVE (NEGATIVE); NITRITE NEGATIVE (NEGATIVE); PH 7.5 (5.0-9.0); UROBILINOGEN 0.2 E.U./dl (0.2-1.0)
[2017-09-23 00:45] LABS: RBC 21-30 rbc/hpf (0-2)
== END 2017-09-23 01:24 | disposition home or self-care (01) ==
LOC: ED 23:40
PROVIDERS: Emergency Medicine Emergency Medical Services
DX: R33.9 Retention of urine, unspecified (principal); K21.9 Gastro-esophageal reflux disease without esophagitis; J44.1 Chronic obstructive pulmonary disease with (acute) exacerbation; G93.41 Metabolic encephalopathy; Z88.5 Allergy status to narcotic agent; Z91.013 Allergy to seafood

== ENCOUNTER → 2017-10-01 | Outpatient (CLI) | payer OTHER | END | disposition home or self-care (01) | LOC: CT 10:00 | DX: R31.9 Hematuria, unspecified (principal); R30.0 Dysuria; Z85.038 Personal history of other malignant neoplasm of large intestine; Z85.46 Personal history of malignant neoplasm of prostate ==

== ENCOUNTER 2017-10-04 20:04 | Inpatient (IN) | payer OTHER ==
[~2017-10-04] VITALS: Ht 170.1 cm; Wt 66.3 kg
--- NOTE | ~2017-10-04 | CON ---
[place], [place] REPORT OF CONSULTATION NAME: [id number] UNIT #: [id number] ROOM: 402 DOCTOR: RAE BUSTILLO MDNAIMA BIRTHDATE: [birth year] DOS: 10/06/2017 PULMONARY CONSULTATION, EVALUATION, AND MANAGEMENT CONSULTATION REQUESTED BY: Hospitalist services. REASON FOR CONSULTATION: To assess the patient for current shortness of breath, recent hospitalization and discharge and readmission to the hospital. HISTORY OF PRESENT ILLNESS: A 77-year-old white male who has been admitted to the hospital, treated for acute progressive severe hypercapnic and hypoxic respiratory failure, chronic hypoxic and hypercapnic respiratory failure. The patient required intubation and mechanical ventilation, was then later successfully liberated from mechanical ventilator. After progressive resolution and controlling the patient's symptoms with resolving COPD, the patient was discharged home. The patient went home. The patient was doing essentially well until rehospitalization. He presented to the hospital Emergency Room as he has noted progressive increased edema of the bilateral lower extremities with increased shortness of breath. He denies symptoms of coughing. Denies symptoms of chest pain or any hemoptysis. The patient has been treated currently for the congestive heart failure with diuretic therapy with reduction of edema of the lower extremities are noted; however, the resolution noted incomplete. The patient noted extremely anxious and would like to be discharged home. REVIEW OF SYSTEMS: CONSTITUTIONAL: Fatigue and tiredness reported. Denies symptoms of fever or chills. EYES: Denies any burning, redness, discharge or diplopia. EAR, NOSE, AND THROAT: No symptoms of epistaxis, sinus congestion or pain or sore throat. CARDIOVASCULAR: Progressive edema of the lower extremities up to 3-4+ noted gradually in the last few days. There were symptoms of palpitation, anginal pain. GASTROINTESTINAL: No dysphagia, nausea, vomiting, diarrhea, abdominal pain, hematemesis, melena, or hematochezia. SKIN: Denies any abnormal lesions or rashes. MUSCULOSKELETAL: Noted without any acute deformities. PAST MEDICAL HISTORY: 1. The patient was admitted in the hospital and treated in 08/2017 and 09/2017. Discharge home on 09/22/2017. 2. History of COPD. 3. Chronic hypoxic and hypercapnic respiratory failure. 4. Past history of nicotine use. 5. Essential hypertension and diverticulosis. 6. Congestive heart failure, diastolic dysfunction. 7. Coronary artery disease. 8. Hyperthyroidism. 9. BPH. Currently he has a Carl[place] catheter in place. [place], [place] REPORT OF CONSULTATION NAME: DAVID ZAVALA UNIT #: [id number] ROOM: 402 DOCTOR: RAE BUSTILLO MD,NAIMA BIRTHDATE: [birth year] PAST SURGICAL HISTORY: 1. Pilonidal cyst. 2. Appendectomy. 3. Cardiac aspiration and coronary stents insertion. 4. Endovascular repair of abdominal aortic aneurysm. 5. Coronary artery angioplasty. 6. Therapeutic bronchoscopy. 7. Intubation and mechanical ventilation. SOCIAL HISTORY: The patient is and lives at home. Smoking started at age of [age] years old with intermittent tobacco use, less than a pack of cigarettes per day. Denies any history of alcohol use or illicit drug use. 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 FAMILY HISTORY: Unknown. MEDICATIONS: Current administered medication on this hospitalization noted as use of IV Solu-Medrol, Norvasc, vitamin D, metoprolol succinate, levothyroxine, Lovenox for DVT prophylaxis, DuoNeb, IV Lasix and potassium chloride. DRUG ALLERGIES: The patient noted allergy to: 1. IVP DYE. 2. CODEINE. PHYSICAL EXAMINATION: GENERAL: A 77-year-old white male who has been currently resting on the bed without any acute distress, appeared to be very anxious. VITAL SIGNS: Height of 5 feet 7 inches, weight of 150 pounds on admission, later on 146. BMI 23.5 on admission. Normal temperature since admission, respiratory rate 18-22. Heart rate 69-77. Blood pressure 130/50 to 145/78. Intake is 1100 mL, output 2200 mL, ____ 1200 mL. Pulse oxygen saturation 3 liters canula 92% saturation. HEENT: Age-related changes. Head was atraumatic. Eyes: No icterus. JVD does not seem to be elevated this time. NECK: Supple. CARDIOVASCULAR: S1, S2 audible. LUNGS: Moderate decreased breath sounds at this time without any wheezing, minimal crackles noted in the lower lung bases bilaterally. ABDOMEN: Flat, soft, and nontender. EXTREMITIES: Chronic muscle mass ____. SKIN: Scattered bruising skin, medication related without any rashes or lesions. CENTRAL NERVOUS SYSTEM: Noted without any acute deformities. Cranial nerves 2-12 intact. No focal deficit. MUSCULOSKELETAL: Without any deformity. LABORATORY DATA: Labs on this patient, the PT, INR for patient on admission was 0.9 on 10/04/2017. CMP on 10/04/2017 was normal BUN and creatinine, sodium 135, [place], [place] REPORT OF CONSULTATION NAME: DAVID ZAVALA UNIT #: [id number] ROOM: 402 DOCTOR: NAIMA ARRIAGA MD BIRTHDATE: [birth year] mildly decreased. The CBC on 10/04/2017, hemoglobin 13, hematocrit 38.1, platelet count normal, WBC count normal CBC repeated again yesterday were noted essentially normal. The CBC of this morning remains essentially normal. The CMP this morning, normal BUN and creatinine, sodium 133. REVIEW OF THE RADIOLOGY DATA: The chest x-ray of the patient that was done on 10/04/2017 for the patient shows basilar area of possible atelectasis. There was no finding of acute congestive heart failure, significant pleural effusion. Two-view x-ray was done yesterday for patient that was reviewed shows no new changes. IMPRESSION: 1. The patient who has been currently admitted to the hospital noted with stable chronic obstructive pulmonary disease and acute congestive heart failure for the patient with the diastolic dysfunction with peripheral edema. Edema of the extremities has been decreasing. 2. Chronic hypercapnic and hypoxic respiratory failure. Past history of tobacco use as well. PLAN AND RECOMMENDATION. The patient could be considered for home discharge or diuretics per direction of the Cardiology Services and outpatient followup. Medication of chronic obstructive pulmonary disease will be continued, abstinence from tobacco use was recommended, use of home oxygen as previously and other supportive plan of therapy and care plan. NAIMA MCBRIDE MD CM:CONSTR:REPORT OF CONSULTATION 1113 10/06/17 1819 interface
--- NOTE | ~2017-10-04 | PR ---
[place], [place] PROGRESS NOTE [id number] UNIT #: [id number] ROOM: 402 DOCTOR: ELIZABETH BUCHANAN MD BIRTHDATE: [birth year] DOS: 10/06/2017 SUBJECTIVE: The patient is well known to me, appears to be comfortable. The patient was seen by Dr. Davenport, who was covering. 24-hour events noted. Discussed with the nursing staff. Dr. Davenport saw the patient on behalf of me. The patient admitted with COPD, history of hypertension, hyperlipidemia. Recent echo showed an ejection fraction well preserved. The patient was recently here with the same symptoms of shortness of breath. HOME MEDICATIONS: Include amlodipine, metoprolol, and levothyroxine. REVIEW OF SYSTEMS: 6-8 systems reviewed. PHYSICAL EXAMINATION: VITAL SIGNS: His blood pressure is 130/60. HEENT: Unremarkable. LUNGS: Diminished air entry. HEART: Carotids, no bruit. ABDOMEN: Soft. NEUROLOGIC: Stable. LABORATORY DATA: Chest x-ray reviewed, no acute changes identified. There is no pulmonary edema. Hemoglobin and hematocrit within normal limits. Creatinine is normal. IMPRESSION: Severe edema of the lower extremity developed in the last couple of weeks. Clinically and radiographically no obvious evidence of cardiac decompensation may due to diet and prednisone and amlodipine. RECOMMENDATIONS: Continue the present care. Agree with continuing the IV diuretics and potassium. Monitor the renal function closely. Strict I's and O's and we will follow up. [place], [place] PROGRESS NOTE NAME: [facility] [id number] UNIT #: [id number] ROOM: 402 DOCTOR: ELIZABETH BUCHANAN MD BIRTHDATE: [birth year] ELIZABETH BUCHANAN MD CM:PNTRANS 0737 ELIZABETH BUCHANAN MD 10/06/17 0734 interface
--- NOTE | ~2017-10-04 | CON ---
[place], [place] REPORT OF CONSULTATION [id number] UNIT #: [id number] ROOM: 402 DOCTOR: TRICIA STONER MD BIRTHDATE: [birth year] DOS: 10/05/2017 I am seeing this patient for Dr. Laguna. HISTORY OF PRESENT ILLNESS: This is a 77-year-old -Citizen Of The [place] man with significant COPD who uses oxygen at night. He has essential hypertension, GERD and hypothyroidism and had infarction in the remote past. An echocardiogram about 18 months ago demonstrated normal LV systolic function, no wall motion abnormality. The echo was read by Dr. Laguna. He has had abdominal aortic aneurysm repair done and also had surgery for colon cancer. He has panic disorders and has used alcohol and tobacco products in the remote past. He was in this hospital a couple of weeks ago with shortness of breath, probably due to COPD exacerbation. At that time, he did not have any heart failure and my examination at that time mentioned no edema of legs. He has been on steroids on fairly good doses for sometime now and legs began to swell up and the feet as well. He had no more than usual shortness of breath, no orthopnea and has not had PND. He has not had any palpitation, chest pain. No fever or chills or much cough. He has not had any abdominal pain, blood in the stool or dark colored stools. HOME MEDICATIONS: Included albuterol, ProAir HFA, Lumigan eyedrops, prednisolone eyedrops, Trusopt eyedrops, amlodipine 5 mg daily, vitamin D, levothyroxine, metoprolol, but steroids are not mentioned in this ____ the patient said he has been on them. PHYSICAL EXAMINATION: GENERAL: This reveals the patient lying flat in bed. He has oxygen on. He is fairly comfortable. VITAL SIGNS: Pulse is regular at 76, blood pressure 109/61. NECK: JVP is normal. AJR is definitely negative. No bruit in the neck. HEART: There is no cardiomegaly, no murmurs are present. P2 appears to be of normal intensity. He has 3+ edema below the knees and a little bit of erythema of skin as well. RESPIRATORY: He is mildly tachypneic, rate is 22. Breath sounds are severely diminished with a few adventitious sounds. ABDOMEN: Liver is not enlarged. There is no abdominal bruit. LABORATORY DATA: Chest x-ray was reviewed by me and no acute changes identified. There is no pulmonary edema. Hemoglobin is 14.5 g/dL. BUN 14, creatinine 0.5, potassium 3.4. IMPRESSION AND PLAN: This patient has severe edema of the lower extremities that developed in the last couple of weeks. Clinically and radiographically, there is no evidence of cardiac decompensation. This edema may be due to diet and prednisone that the patient claims he had been taking. Because of the severity of edema, I think it is probably good idea to use IV [place], [place] REPORT OF CONSULTATION NAME: DAVID ZAVALA UNIT #: [id number] ROOM: 402 DOCTOR: GEORGIANA DOOLEY,TRICIA BIRTHDATE: [birth year] furosemide for a couple of days while monitoring potassium and renal function. He does not require any further cardiac workup. I thank you on behalf of Dr. Laguna, who will see this patient tomorrow. TRICIA STONER MD CM:CONSTR:REPORT OF CONSULTATION 1112 10/06/17 0319 interface
[2017-10-04 20:05] VITALS: BP 133/63
[2017-10-04 20:48] LABS: BASO % 0.3 % (0.0-1.0); EOS # 0.2 10*3/uL (0.0-0.4); EOS % 2.3 % (1.0-4.0); HEMATOCRIT 38.1 % (42.0-52.0); MEAN CELL VOLUME 90.9 fl (80.0-94.0); MEAN CORPUSCULAR HGB CONC 34.1 g/dl (33.0-37.0); MEAN PLATELET VOLUME 8.9 fl (9.6-12.3); MONO # 0.8 10*3/uL (0.1-1.0); MONO % 9.9 % (3.0-9.0); NEUT # 5.9 10*3/uL (2.3-7.9); PLATELET COUNT AUTOMATED 116 10*3/uL (130-400); RED BLOOD COUNT 4.19 10*6/uL (4.50-5.90); RED CELL DISTRI WIDTH 15.7 % (0-14.5); WHITE BLOOD COUNT 7.9 10*3/uL (4.8-10.8)
[2017-10-04 20:55] LABS: INTERNATIONAL NORM RATIO 0.9 (2.0-3.5)
[2017-10-04 21:00] VITALS: BP 132/68
[2017-10-04 21:04] LABS: ALBUMIN 2.8 gm/dl (3.1-4.5); ALKALINE PHOSPHATASE 74 U/L (45-117); BUN 14 mg/dl (7-24); CHLORIDE 100 mmol/L (98-107); CREATININE 0.65 mg/dL (0.70-1.30); POTASSIUM 4.1 mmol/L (3.5-5.1); SGOT/AST 14 IU/L (3-35); SGPT/ALT 19 U/L (12-78); SODIUM 135 mmol/L (136-145); TOTAL PROTEIN 5.5 gm/dL (6.4-8.2)
[2017-10-04 21:05] LABS: TROPONIN I < 0.015 ng/ml (<0.045)
[2017-10-04 21:45] VITALS: BP 122/65
[2017-10-04 23:03] VITALS: BP 129/73
[2017-10-04 23:20] VITALS: BP 117/78
[2017-10-04 23:33] VITALS: BP 117/78
[2017-10-05] MEDS ORDERED: LUMIGAN50 DRP OU (00:58)
[2017-10-05 07:05] LABS: BASO % 0.3 % (0.0-1.0); EOS # 0.1 10*3/uL (0.0-0.4); EOS % 1.9 % (1.0-4.0); HEMATOCRIT 41.6 % (42.0-52.0); HEMOGLOBIN 14.5 g/dl (14.0-18.0); LYMPH # 0.8 10*3/uL (1.3-4.4); LYMPH % 12.8 % (27.0-41.0); MEAN CELL VOLUME 89.8 fl (80.0-94.0); MEAN CORPUSCULAR HGB 31.3 pg (27.0-31.0); MEAN CORPUSCULAR HGB CONC 34.9 g/dl (33.0-37.0); MEAN PLATELET VOLUME 9.2 fl (9.6-12.3); MONO # 0.6 10*3/uL (0.1-1.0); MONO % 9.7 % (3.0-9.0); NEUT # 4.8 10*3/uL (2.3-7.9); NEUT % 73.9 % (47.0-73.0); PLATELET COUNT AUTOMATED 106 10*3/uL (130-400); RED BLOOD COUNT 4.63 10*6/uL (4.50-5.90); RED CELL DISTRI WIDTH 15.8 % (0-14.5); WHITE BLOOD COUNT 6.5 10*3/uL (4.8-10.8)
[2017-10-05 07:32] LABS: ACT PARTIAL THROMBO TIME 27.5 SECONDS (20.8-31.5); INTERNATIONAL NORM RATIO 0.9 (2.0-3.5)
[2017-10-05 07:34] LABS: BUN 14 mg/dl (7-24); CHLORIDE 97 mmol/L (98-107); CHOLESTEROL 171 mg/dL (<200); POTASSIUM 3.4 mmol/L (3.5-5.1); SODIUM 134 mmol/L (136-145); TRIGLYCERIDES 84 mg/dl (<150); VLDL CHOLESTEROL 17 mg/dL (6-40)
[2017-10-05 07:43] LABS: HDL CHOLESTEROL 73 mg/dl (40-60); LDL CHOLESTEROL 81 mg/dL (9-159)
[2017-10-05 08:00] VITALS: BP 109/61
[2017-10-05 08:54] LABS: VITAMIN D, 25-HYDROXY 16.5 ng/mL (30-100)
[2017-10-05 12:00] VITALS: BP 136/77
[2017-10-05 16:00] VITALS: BP 134/67
[2017-10-05 20:00] VITALS: BP 118/62
[2017-10-06] VITALS: BP 130/50
[2017-10-06 06:48] LABS: BASO % 0.1 % (0.0-1.0); HEMATOCRIT 38.7 % (42.0-52.0); HEMOGLOBIN 13.4 g/dl (14.0-18.0); LYMPH # 0.6 10*3/uL (1.3-4.4); LYMPH % 6.9 % (27.0-41.0); MEAN CORPUSCULAR HGB 30.8 pg (27.0-31.0); MEAN CORPUSCULAR HGB CONC 34.6 g/dl (33.0-37.0); MEAN PLATELET VOLUME 9.5 fl (9.6-12.3); MONO # 0.6 10*3/uL (0.1-1.0); MONO % 7.2 % (3.0-9.0); NEUT % 84.9 % (47.0-73.0); PLATELET COUNT AUTOMATED 110 10*3/uL (130-400); RED BLOOD COUNT 4.35 10*6/uL (4.50-5.90); RED CELL DISTRI WIDTH 15.2 % (0-14.5); WHITE BLOOD COUNT 8.2 10*3/uL (4.8-10.8)
[2017-10-06 06:54] LABS: ALBUMIN 3.1 gm/dl (3.1-4.5); ALKALINE PHOSPHATASE 74 U/L (45-117); BUN 18 mg/dl (7-24); CHLORIDE 98 mmol/L (98-107); CREATININE 0.54 mg/dL (0.70-1.30); SGOT/AST 16 IU/L (3-35); SGPT/ALT 19 U/L (12-78); SODIUM 133 mmol/L (136-145)
[2017-10-06 08:00] VITALS: BP 145/78
[2017-10-06] MEDS ORDERED: LASIX40 MG PO (11:17)
[2017-10-06] MEDS ORDERED: K-TAB20 MEQ PO (11:17)
== END 2017-10-06 12:50 | disposition home health service (06) | DRG 292 ==
LOC: ED 20:04 → 4E 22:24 → EDHOLD 22:24 → 4E 23:04
PROVIDERS: Internal Medicine; Physician Assistant; Registered Nurse
DX: I11.0 Hypertensive heart disease with heart failure (principal); E44.0 Moderate protein-calorie malnutrition; J96.11 Chronic respiratory failure with hypoxia; J96.12 Chronic respiratory failure with hypercapnia; D69.6 Thrombocytopenia, unspecified; E87.1 Hypo-osmolality and hyponatremia; Z99.81 Dependence on supplemental oxygen; F17.210 Nicotine dependence, cigarettes, uncomplicated; I50.33 Acute on chronic diastolic (congestive) heart failure; E87.6 Hypokalemia; E78.5 Hyperlipidemia, unspecified; I25.10 Atherosclerotic heart disease of native coronary artery without angina pectoris; E05.90 Thyrotoxicosis, unspecified without thyrotoxic crisis or storm; J44.9 Chronic obstructive pulmonary disease, unspecified; F41.0 Panic disorder [episodic paroxysmal anxiety]; K21.9 Gastro-esophageal reflux disease without esophagitis; H40.9 Unspecified glaucoma; N40.0 Benign prostatic hyperplasia without lower urinary tract symptoms; R33.8 Other retention of urine; E55.9 Vitamin D deficiency, unspecified; Z91.041 Radiographic dye allergy status; Z88.5 Allergy status to narcotic agent; Z91.013 Allergy to seafood; Z79.899 Other long term (current) drug therapy; Z90.49 Acquired absence of other specified parts of digestive tract; Z98.41 Cataract extraction status, right eye; Z68.23 Body mass index [BMI] 23.0-23.9, adult; Z82.49 Family history of ischemic heart disease and other diseases of the circulatory system; Z83.3 Family history of diabetes mellitus; Z85.038 Personal history of other malignant neoplasm of large intestine; I25.2 Old myocardial infarction; Z87.01 Personal history of pneumonia (recurrent); Z71.6 Tobacco abuse counseling

== ENCOUNTER 2017-10-08 17:57 | Emergency (ER) | payer OTHER ==
[~2017-10-08] VITALS: Ht 170.1 cm; Wt 64.0 kg
[~2017-10-08 17:57] MED LIST changes: +K-TAB20 MEQ PO; +LASIX40 MG PO; +LUMIGAN50 DRP OU
[2017-10-08 18:14] VITALS: BP 173/86
[2017-10-08 18:38] LABS: BILIRUBIN NEGATIVE (NEGATIVE); BLOOD 3+ (NEGATIVE); CLARITY CLOUDY (CLEAR); COLOR STRAW (YELLOW); GLUCOSE NEGATIVE (NEGATIVE); KETONE NEGATIVE (NEGATIVE); LEUKO ESTERASE 1+ (NEGATIVE); NITRITE POSITIVE (NEGATIVE); PH 7.5 (5.0-9.0)
[2017-10-08 18:47] LABS: BACTERIA 4+; RBC TNTC rbc/hpf (0-2)
[2017-10-09] MEDS ORDERED: CEFUROXIME AXE250 MG PO (01:37)
== END 2017-10-08 19:21 | disposition home or self-care (01) ==
LOC: ED 17:57
PROVIDERS: Physician Assistant
DX: T83.091A Other mechanical complication of indwelling urethral catheter, initial encounter (principal); N39.0 Urinary tract infection, site not specified; Z91.041 Radiographic dye allergy status; Z88.6 Allergy status to analgesic agent; Z91.013 Allergy to seafood; Z79.899 Other long term (current) drug therapy

== ENCOUNTER 2017-10-09 01:18 | Emergency (ER) | payer OTHER ==
[~2017-10-09] VITALS: Ht 170.1 cm; Wt 64.0 kg
[2017-10-09] MEDS ORDERED: CEFUROXIME AXE250 MG PO (01:37)
[2017-10-09 02:59] VITALS: BP 126/72
== END 2017-10-09 03:10 | disposition home or self-care (01) ==
LOC: ED 01:18
DX: R31.0 Gross hematuria (principal); R33.9 Retention of urine, unspecified; F17.200 Nicotine dependence, unspecified, uncomplicated; J44.1 Chronic obstructive pulmonary disease with (acute) exacerbation; K21.9 Gastro-esophageal reflux disease without esophagitis; N40.0 Benign prostatic hyperplasia without lower urinary tract symptoms; J96.11 Chronic respiratory failure with hypoxia; I11.0 Hypertensive heart disease with heart failure; G93.41 Metabolic encephalopathy; Z79.899 Other long term (current) drug therapy; Z88.2 Allergy status to sulfonamides; Z88.5 Allergy status to narcotic agent; Z91.013 Allergy to seafood

== ENCOUNTER 2017-10-18 08:38 | Emergency (ER) | payer OTHER ==
[~2017-10-18] VITALS: Ht 170.1 cm; Wt 61.7 kg
[~2017-10-18 08:38] MED LIST changes: +CEFUROXIME AXE250 MG PO
[2017-10-18 08:44] VITALS: BP 159/86
[2017-10-18] MEDS ORDERED: TAMSULOSIN HCL0.4 MG PO (08:49)
[2017-10-19] MEDS ORDERED: LEVAQUIN250 M1 PO (18:16)
== END 2017-10-18 10:04 | disposition home or self-care (01) ==
LOC: ED 08:38
DX: T83.038A Leakage of other urinary catheter, initial encounter (principal); J44.9 Chronic obstructive pulmonary disease, unspecified; K21.9 Gastro-esophageal reflux disease without esophagitis; I50.9 Heart failure, unspecified; I10 Essential (primary) hypertension; E03.9 Hypothyroidism, unspecified; F17.200 Nicotine dependence, unspecified, uncomplicated; Z91.041 Radiographic dye allergy status; Z88.6 Allergy status to analgesic agent; Z91.018 Allergy to other foods; Z88.1 Allergy status to other antibiotic agents; Z79.899 Other long term (current) drug therapy

== ENCOUNTER 2017-10-19 17:24 | Emergency (ER) | payer OTHER ==
[~2017-10-19] VITALS: Ht 170.1 cm; Wt 61.2 kg
[~2017-10-19 17:24] MED LIST changes: +TAMSULOSIN HCL0.4 MG PO
[2017-10-19 18:01] LABS: BILIRUBIN NEGATIVE (NEGATIVE); BLOOD 3+ (NEGATIVE); CLARITY CLEAR (CLEAR); COLOR YELLOW (YELLOW); GLUCOSE NEGATIVE (NEGATIVE); KETONE NEGATIVE (NEGATIVE); LEUKO ESTERASE 1+ (NEGATIVE); NITRITE NEGATIVE (NEGATIVE); UROBILINOGEN 0.2 E.U./dl (0.2-1.0)
[2017-10-19 18:09] LABS: BACTERIA TRACE; RBC 31-40 rbc/hpf (0-2)
[2017-10-19] MEDS ORDERED: LEVAQUIN250 M1 PO (18:16)
[2017-10-19 18:27] VITALS: BP 130/80
== END 2017-10-19 18:14 | disposition home or self-care (01) ==
LOC: ED 17:24
PROVIDERS: Nurse Practitioner Family
DX: T83.091A Other mechanical complication of indwelling urethral catheter, initial encounter (principal); N39.0 Urinary tract infection, site not specified; F17.200 Nicotine dependence, unspecified, uncomplicated; E03.9 Hypothyroidism, unspecified; E78.00 Pure hypercholesterolemia, unspecified; K21.9 Gastro-esophageal reflux disease without esophagitis; I11.0 Hypertensive heart disease with heart failure; I50.9 Heart failure, unspecified; Z85.038 Personal history of other malignant neoplasm of large intestine; Z99.81 Dependence on supplemental oxygen; Z79.899 Other long term (current) drug therapy; Z91.041 Radiographic dye allergy status; Z88.5 Allergy status to narcotic agent; Z91.013 Allergy to seafood; Z88.1 Allergy status to other antibiotic agents; Z98.890 Other specified postprocedural states; Z88.8 Allergy status to other drugs, medicaments and biological substances; Y92.9 Unspecified place or not applicable

== ENCOUNTER 2017-11-03 17:05 | Emergency (ER) | payer OTHER ==
[~2017-11-03] VITALS: Ht 170.1 cm; Wt 61.2 kg
[~2017-11-03 17:05] MED LIST changes: +LEVAQUIN250 M1 PO
[2017-11-03 17:22] LABS: BILIRUBIN NEGATIVE (NEGATIVE); BLOOD 3+ (NEGATIVE); CLARITY CLOUDY (CLEAR); COLOR YELLOW (YELLOW); GLUCOSE NEGATIVE (NEGATIVE); KETONE NEGATIVE (NEGATIVE); LEUKO ESTERASE 1+ (NEGATIVE); NITRITE NEGATIVE (NEGATIVE); SPECIFIC GRAVITY <= 1.005 (1.005-1.030); UROBILINOGEN 0.2 E.U./dl (0.2-1.0)
[2017-11-03 17:28] LABS: BACTERIA 3+; RBC TNTC rbc/hpf (0-2)
[2017-11-03 17:56] LABS: BASO % 0.4 % (0.0-1.0); EOS # 0.4 10*3/uL (0.0-0.4); EOS % 3.9 % (1.0-4.0); HEMATOCRIT 39.2 % (42.0-52.0); HEMOGLOBIN 13.7 g/dl (14.0-18.0); LYMPH # 1.3 10*3/uL (1.3-4.4); LYMPH % 13.7 % (27.0-41.0); MEAN CELL VOLUME 89.5 fl (80.0-94.0); MEAN CORPUSCULAR HGB 31.3 pg (27.0-31.0); MEAN CORPUSCULAR HGB CONC 34.9 g/dl (33.0-37.0); MEAN PLATELET VOLUME 9.5 fl (9.6-12.3); MONO # 1.1 10*3/uL (0.1-1.0); MONO % 11.8 % (3.0-9.0); NEUT # 6.4 10*3/uL (2.3-7.9); NEUT % 69.2 % (47.0-73.0); PLATELET COUNT AUTOMATED 132 10*3/uL (130-400); RED BLOOD COUNT 4.38 10*6/uL (4.50-5.90); RED CELL DISTRI WIDTH 14.7 % (0-14.5); WHITE BLOOD COUNT 9.3 10*3/uL (4.8-10.8)
[2017-11-03 18:11] LABS: ALBUMIN 3.5 gm/dl (3.1-4.5); ALKALINE PHOSPHATASE 92 U/L (45-117); BUN 7 mg/dl (7-24); CHLORIDE 97 mmol/L (98-107); CREATININE 0.48 mg/dL (0.70-1.30); SGOT/AST 14 IU/L (3-35); SGPT/ALT 17 U/L (12-78); SODIUM 130 mmol/L (136-145); TOTAL PROTEIN 6.2 gm/dL (6.4-8.2)
[2017-11-03 18:20] VITALS: BP 142/87
== END 2017-11-03 18:14 | disposition home or self-care (01) ==
LOC: ED 17:05
PROVIDERS: Emergency Medicine; Family Medicine
DX: R31.9 Hematuria, unspecified (principal); F17.200 Nicotine dependence, unspecified, uncomplicated; I11.0 Hypertensive heart disease with heart failure; I50.9 Heart failure, unspecified; J44.9 Chronic obstructive pulmonary disease, unspecified; K21.9 Gastro-esophageal reflux disease without esophagitis; E03.9 Hypothyroidism, unspecified; Z98.890 Other specified postprocedural states; Z90.89 Acquired absence of other organs; Z85.038 Personal history of other malignant neoplasm of large intestine; Z79.899 Other long term (current) drug therapy; Z91.041 Radiographic dye allergy status; Z88.5 Allergy status to narcotic agent; Z88.1 Allergy status to other antibiotic agents; Z88.8 Allergy status to other drugs, medicaments and biological substances; Z91.013 Allergy to seafood

== ENCOUNTER 2017-11-19 06:09 | Emergency (ER) | payer OTHER ==
[~2017-11-19] VITALS: Ht 170.1 cm; Wt 61.2 kg
--- NOTE | ~2017-11-19 | EKG ---
[place], [place] ELECTROCARDIOGRAM REPORT NAME: DAVID ZAVALA UNIT #: [id number] ROOM: DOCTOR: TRICIA STONER MD BIRTHDATE: [birth year] DOS: 11/19/2017 TIME: 0633 hours IMPRESION: 1. Normal sinus rhythm at 63 beats per minute. 2. Poor R-wave progression is present and this may be due to an old anterior wall myocardial infarction. 3. No previous tracing is available for comparison. TRICIA STONER MD CM:EKGRPT:ELECTROCARDIOGRAM REPORT 0726 0938 TRICIA STONER MD
[~2017-11-19 06:09] MED LIST changes: -TRUSOPT OCUMETE10 ML OS; +TRUSOPT OCUMETE10 ML OU
[2017-11-19 06:50] LABS: BASO # 0.1 10*3/uL (0.0-0.1); BASO % 0.7 % (0.0-1.0); EOS # 0.3 10*3/uL (0.0-0.4); EOS % 3.8 % (1.0-4.0); HEMATOCRIT 43.7 % (42.0-52.0); HEMOGLOBIN 14.9 g/dl (14.0-18.0); LYMPH % 12.9 % (27.0-41.0); MEAN CELL VOLUME 91.4 fl (80.0-94.0); MEAN CORPUSCULAR HGB 31.2 pg (27.0-31.0); MEAN CORPUSCULAR HGB CONC 34.1 g/dl (33.0-37.0); MEAN PLATELET VOLUME 9.5 fl (9.6-12.3); MONO # 0.6 10*3/uL (0.1-1.0); MONO % 7.7 % (3.0-9.0); NEUT # 5.5 10*3/uL (2.3-7.9); NEUT % 74.6 % (47.0-73.0); PLATELET COUNT AUTOMATED 139 10*3/uL (130-400); RED BLOOD COUNT 4.78 10*6/uL (4.50-5.90); RED CELL DISTRI WIDTH 14.6 % (0-14.5); WHITE BLOOD COUNT 7.4 10*3/uL (4.8-10.8)
[2017-11-19 06:59] LABS: ABG HCO3 24.9 mmol/l (22-26); ARTERIAL BLOOD GAS PH 7.34 (7.35-7.45)
[2017-11-19 06:59] LABS: ACT PARTIAL THROMBO TIME 29.3 SECONDS (20.8-31.5)
[2017-11-19 07:06] LABS: ALBUMIN 3.9 gm/dl (3.1-4.5); ALKALINE PHOSPHATASE 108 U/L (45-117); BUN 9 mg/dl (7-24); CHLORIDE 100 mmol/L (98-107); CREATININE 0.62 mg/dL (0.70-1.30); POTASSIUM 4.2 mmol/L (3.5-5.1); SGOT/AST 17 IU/L (3-35); SGPT/ALT 19 U/L (12-78); SODIUM 135 mmol/L (136-145); TOTAL PROTEIN 6.9 gm/dL (6.4-8.2)
[2017-11-19 07:18] LABS: TROPONIN I < 0.015 ng/ml (<0.045)
[2017-11-19] MEDS ORDERED: PREDNISONE20 M1 PO (08:57)
[2017-11-19 09:00] VITALS: BP 118/73
== END 2017-11-19 09:02 | disposition home or self-care (01) ==
LOC: ED 06:09
PROVIDERS: Student in an Organized Health Care Education/Training Program
DX: J44.1 Chronic obstructive pulmonary disease with (acute) exacerbation (principal); F17.200 Nicotine dependence, unspecified, uncomplicated; K21.9 Gastro-esophageal reflux disease without esophagitis; I10 Essential (primary) hypertension; E03.9 Hypothyroidism, unspecified; Z98.890 Other specified postprocedural states; Z79.899 Other long term (current) drug therapy; Z91.041 Radiographic dye allergy status; Z88.6 Allergy status to analgesic agent; Z88.5 Allergy status to narcotic agent; Z91.013 Allergy to seafood; Z88.8 Allergy status to other drugs, medicaments and biological substances; Z85.038 Personal history of other malignant neoplasm of large intestine; Z87.01 Personal history of pneumonia (recurrent)

== ENCOUNTER 2017-11-20 02:19 | Inpatient (IN) | payer OTHER ==
[~2017-11-20] VITALS: Ht 170.2 cm; Wt 62.7 kg
[2017-11-20] VITALS (10 sets, daily range): BP systolic 118–198; BP diastolic 60–110
--- NOTE | ~2017-11-20 | CON ---
[place], [place] REPORT OF CONSULTATION NAME: DAVID ZAVALA UNIT #: [id number] ROOM: [facility] DOCTOR: NAIMA ARRIAGA MD BIRTHDATE: [birth year] DOS: 11/20/2017 PULMONARY BI CONSULTANT AND EVALUATION REASON FOR CONSULTATION: For assessment of current acute respiratory failure. HISTORY OF PRESENT ILLNESS: This is a 77-year-old white male patient, currently noted drowsy as the patient has been given Ativan. He was noted agitated, pulling off the BiPAP mask. I could not get history from the patient at this time with current change in mental status. The patient was arousable, but not able to answer any questions. He does have oxygen supplementation, Venturi mask, in place. The history contained in document is actually review of my previous medical records which were very well known to me from previous admissions and the documentation of current admission by the other physicians. A 77-year-old white male who has been brought to the hospital. The patient was noted with severe acute respiratory distress at home. The patient is brought to the hospital by the EMS. The patient has been noted with symptoms of some cough at this time and chest congestion. He presented to the Emergency Room yesterday. He has been admitted to the Intensive Care Unit. The patient's arterial blood gases were noted with acute on chronic hypercapnic and hypoxic respiratory failure with BiPAP. The patient has been using the BiPAP intermittently since last night. This morning, the patient was noted agitated, pulling off his mask completely. He has been given Ativan, which was ordered by the primary care attending, about half an hour prior to my assessment this morning in the ICU. The patient has been noted without any severe acute respiratory distress and maintaining pulse oxygen saturation at 92 to 93% with the Venturi mask of oxygen. REVIEW OF SYSTEMS: The review of systems could not be completed for this patient because of the patient's current change in mental status related to the combination of hypercarbia and administration of Ativan earlier. PAST MEDICAL HISTORY: Known with history of: 1. History of recurrent hospitalizations requiring mechanical ventilation for acute respiratory failure and liberation from mechanical ventilation. 2. Chronic hypercapnic respiratory failure and acute chronic hypoxic respiratory failure. 3. Continued nicotine abuse despite the previous multiple counseling with tobacco cessation. 4. Congestive heart failure, diastolic dysfunction. 5. Coronary artery disease. 6. Benign prostatic hypertrophy. 7. Chronic indwelling Carlisle catheter. PAST SURGICAL HISTORY: 1. Pilonidal cyst. 2. Appendectomy. 3. Cardiac catheterization and coronary artery stents insertion. 4. Endovascular repair of the patient's abdominal aortic aneurysm. 5. Coronary artery angioplasty. [place], [place] REPORT OF CONSULTATION NAME: DAVID ZAVALA UNIT #: [id number] ROOM: [facility] DOCTOR: RAE BUSTILLO MD,NAIMA BIRTHDATE: [birth year] 6. Therapeutic bronchoscopy. 7. Intubation on mechanical ventilation in 2018 earlier this year. SOCIAL HISTORY: The patient is , who is living at home. Smoking noted from the age of [age] years old, about a pack of cigarettes per day with active continued tobacco use. The patient has not been noted alcohol or illicit drug use. OCCUPATIONAL HISTORY: The patient is noted with several years of work with exposure asbestos and dust at his work. 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 FAMILY HISTORY: Unknown. CURRENT MEDICATIONS: The patient is noted as use of Lovenox, latanoprost eyedrops, Flomax, Norvasc, metoprolol succinate, IV Solu-Medrol 60 mg q. 8 hours, levothyroxine, DuoNeb, magnesium hydroxide, Levaquin, temazepam, and other p.r.n. medications. DRUG ALLERGIES: THE PATIENT WAS NOTED ALLERGIES TO: 1. IVP DYE. 2. CODEINE PHOSPHATE. 3. PERCOCET. 4. BACTRIM. PHYSICAL EXAMINATION: GENERAL: This is a 77-year-old male patient, currently noted arousable to vocal commands, but no respiratory distress with the Venturi mask of oxygen use, lying on his left lateral body position. Height was noted 5 feet 7 inches, weight of 138 pounds, BMI 21. VITAL SIGNS: The patient was recorded as normal temperature since admission in the last 24 hours, respiratory rate 18 to 24, heart rate of 68 to 82, blood pressure 148/74 to previously 174/110. The pulse oxygen saturation, the patient was noted on 40% oxygen with BiPAP earlier at 100%, currently on 40% Venturi mask at 93% saturation. HEENT: Showed head was atraumatic, eyes nonicterus. NECK: Supple. CARDIOVASCULAR: S1, S2 audible. LUNGS: General reduction in the breath sounds in the lungs were noted bilaterally with expiratory wheezing. There were no crackles. ABDOMEN: Soft, flat, nontender. Bowel sounds present. EXTREMITIES: The patient has no edema, clubbing or cyanosis. CENTRAL NERVOUS SYSTEM: The patient was noted at this time with change in mental status, further examination could not be performed. MUSCULOSKELETAL: Without any gross deformities. LABORATORY DATA: Arterial blood gas of the patient that was done yesterday in the Emergency Room, pH of 7.34, pCO2 47, pO2 131, 8 liters oxygen supplementation. Arterial blood gas on 100% nonrebreather mask, pH of 7.26, pCO2 of 58, pO2 133. Another arterial blood gas for the patient that was done [place], [place] REPORT OF CONSULTATION NAME: DAVID ZAVALA UNIT #: [id number] ROOM: [facility] DOCTOR: RAE BUSTILLO MD,NAIMA BIRTHDATE: [birth year] this morning on 40% oxygen with BiPAP, pH of 7.36, pCO2 43, pO2 65. Troponin for the patient 3 sets yesterday and today were noted all normal. CMP yesterday on admission, BUN normal, creatinine normal, sodium 135, normal LFTs. The CMP of this morning for the patient noted normal BUN and creatinine, sodium was 135. PT/PTT normal today. The chest x-ray of the patient that was done yesterday noted with hyperinflation changes of COPD. Chest x-ray of the patient that was done this morning was reviewed, shows severe changes of COPD, hyperinflation of the lung with interval development of small infiltration in the right lower lobe with associated small pleural fluid as a new finding. IMPRESSION: 1. The patient has been currently admitted to the hospital. The patient is noted with acute on chronic severe hypercapnic and hypoxic respiratory failure. 2. Possibility of acute pneumonia in the patient's right lower lobe with associated pleural fluid as well. 3. The patient with continued chronic nicotine dependence as well. 4. Change in mental status, multifactorial, secondary to hypercarbia, but most likely related to the current administration of Ativan. 5. Agitated behavior noted earlier secondary to ongoing acute illness. 6. History of benign prostatic hypertrophy and other medical illnesses. PLAN OF TREATMENT: Reapply the BiPAP on the patient at this time since he is not noted with agitation. Closely monitor respiratory status of the patient, clearly define the code status for the patient. Consideration for intubation and mechanical ventilation if respiratory failure deteriorates. P.r.n. arterial blood gases will be reviewed. The patient was noted with BiPAP setting of 15/5 earlier, that has been changed to 15/10 to improve the oxygenation. Other supportive therapy and plan of management of the patient to be continued as in progress. Other usual care and medical management therapies. Other additional treatment changes will continue to be made for this patient with the progression of his illness. For DVT prophylaxis, the patient will be continued with Lovenox 40 mg. Thanks for allowing me to participate in the care of this patient. ADDENDUM: Pleural fluid is noted small at this time, will be monitored. The patient has been currently receiving Solu-Medrol that will be continued. Levaquin will be continued for medical management of acute pneumonia. Pleural fluid would be monitored with followup chest x-ray intermittently and if it enlarges certainly consider thoracentesis. Nicotine replacement patches will be ordered for the patient as well because of history of chronic long-term tobacco use to overcome any nicotine withdrawal. The sputum for Gram stain culture was ordered as well for the patient. Monitor other culture results of the patient once available. Thanks for allowing me to participate in the care of this patient. [place], [place] REPORT OF CONSULTATION NAME: DAVID ZAVALA UNIT #: [id number] ROOM: [facility] DOCTOR: NAIMA ARRIAGA MD BIRTHDATE: [birth year] NAIMA MCBRIDE MD CM:CONSTR:REPORT OF CONSULTATION 1625 11/21/17 0801 interface
--- NOTE | ~2017-11-20 | PR ---
[place], [place] PROGRESS NOTE NAME: DAVID ZAVALA UNIT #: [id number] ROOM: 408 DOCTOR: NAIMA ARRIAGA MD BIRTHDATE: [birth year] DOS: 11/21/2017 PULMONARY PROGRESS NOTE SUBJECTIVE: The patient noted comfortable at this time, resting in the bed, using the oxygen supplementation as well as the BiPAP intermittently. Denies symptoms of chest pain. Denies symptoms of nausea or vomiting. Denies symptoms of abdominal pain or hemoptysis. The patient denies symptoms of headache or diplopia. It has been noted chronic blindness of the right eye for the macular degeneration. REVIEW OF SYSTEMS: The remaining systems were reviewed and noted normal. PHYSICAL EXAMINATION: VITAL SIGNS: Normal temperature, respiratory rate 18, heart rate 94-93, blood pressure 115/71-118/62. Pulse oxygen saturation noted 40% Venturi mask, 93% saturation. HEENT: Examination shows head was atraumatic. Eyes nonicterus. NECK: Supple. CARDIOVASCULAR: S1, S2 audible. LUNGS: Noted moderate decreased breath sounds bilaterally with expiratory wheezing. There were no crackles. ABDOMEN: Soft, nontender and flat. EXTREMITIES: Noted without acute edema, clubbing, cyanosis. MUSCULOSKELETAL: Noted without any acute deformities. SKIN: Visible skin, no lesions or rashes. IMPRESSION: 1. The patient currently noted with ongoing acute exacerbation of chronic obstructive pulmonary disease, acute tracheobronchitis as well as acute pneumonia with pleural effusion. 2. Debilitating chronic blindness of the eye. 3. Acute on chronic hypercapnic and hypoxic respiratory failure. PLAN OF MANAGEMENT: Continuation of bronchodilators, oxygen supplementation, use of BiPAP was encouraged. He could be transferred from Intensive Care Unit to medical floor. Continue Solu-Medrol and other antibiotic. Monitor all the culture results and make further adjustments in the medications accordingly. Usual care. [place], [place] PROGRESS NOTE NAME: DAVID ZAVALA UNIT #: [id number] ROOM: 408 DOCTOR: NAIMA ARRIAGA MD BIRTHDATE: [birth year] NAIMA MCBRIDE MD CM:PNTRANS 193 NAIMA BUSTILLO MD 11/22/177 interface
--- NOTE | ~2017-11-20 | EKG ---
[place], [place] ELECTROCARDIOGRAM REPORT NAME: DAVID ZAVALA UNIT #: [id number] ROOM: [facility] DOCTOR: RAE BUSTILLO MD,NAIMA BIRTHDATE: [birth year] DOS: 11/20/2017 PROCEDURE: Electrocardiogram. PROCEDURE DATE AND TIME: 11/20/2017 at 02:45 a.m. FINDINGS: Normal sinus rhythm noted, heart rate 99 beats per minute. Nonspecific intraventricular conduction delay for the patient was also suspected. NAIMA MCBRIDE MD CM:EKGRPT:ELECTROCARDIOGRAM REPORT [id number] NAIMA BUSTILLO MD
--- NOTE | ~2017-11-20 | CON ---
[place], [place] REPORT OF CONSULTATION NAME: DAVID ZAVALA UNIT #: [id number] ROOM: [facility] DOCTOR: RAE BUSTILLO MD,NAIMA BIRTHDATE: [birth year] DOS: 11/20/2017 ADDENDUM: Pleural fluid is noted small at this time, will be monitored. The patient has been currently receiving Solu-Medrol that will be continued. Levaquin will be continued for medical management of acute pneumonia. Pleural fluid would be monitored with followup chest x-ray intermittently and if it enlarges certainly consider thoracentesis. Nicotine replacement patches will be ordered for the patient as well because of history of chronic long-term tobacco use to overcome any nicotine withdrawal. The sputum for Gram stain culture was ordered as well for the patient. Monitor other culture results of the patient once available. Thanks for allowing me to participate in the care of this patient. NAIMA MCBRIDE MD CM:CONSTR:REPORT OF CONSULTATION 1627 11/21/17 0802 interface
--- NOTE | ~2017-11-20 | PR ---
[place], [place] PROGRESS NOTE NAME: [id number] UNIT #: [id number] ROOM: 408 DOCTOR: NAIMA ARRIAGA MD BIRTHDATE: [birth year] DOS: 11/23/2017 SUBJECTIVE: The patient was noted comfortable at this time, resting with continued gradual improvement and reduction in respiratory symptom. Shortness of breath, coughing, wheezing all the symptoms have been resolving. Denies symptoms of chest pain or hemoptysis. He was continuing Solu-Medrol and breathing treatments. OBJECTIVE: VITAL SIGNS: Normal temperature, respiratory rate 18, heart rate 76, blood pressure 115/76 this morning recorded, pulse oxygen saturation was noted on nasal cannula through Venturi mask 95% saturation. HEENT: Showed no acute change. NECK: Supple. CARDIOVASCULAR: S1, S2 audible. LUNGS: Noted moderate decreased breath sounds without any wheezing or crackles at present time. ABDOMEN: Soft, nontender. EXTREMITIES: Without any acute edema. LABORATORY DATA: The patient's CBC today, hemoglobin 12.3, hematocrit 39.4, WBC count normal, platelet count normal. BMP this morning, normal BUN and creatinine. IMPRESSION: 1. The patient with gradual resolution in the acute respiratory symptom. The patient has been continued for acute exacerbation of chronic obstructive pulmonary disease and acute bronchitis. 2. Improving acute on chronic hypercapnia, hypoxic respiratory failure. PLAN OF MANAGEMENT: Continuation of the bronchodilator with oxygen supplementation. Titrate oxygen supplementation 90% or greater. Ambulation, the patient will be encouraged. Possible home discharge for this patient today or tomorrow depends on further improvement and reduce oxygen requirement needs. [place], [place] PROGRESS NOTE NAME: [facility]ID [facility]AVALA [id number] UNIT #: [id number] ROOM: 408 DOCTOR: NAIMA ARRIAGA MD BIRTHDATE: [birth year] NAIMA MCBRIDE MD CM:PNTRANS [id number] NAIMA BUSTILLO MD 11/23/17 1546 interface
[~2017-11-20 02:19] MED LIST changes: +PREDNISONE20 M1 PO
[2017-11-20 03:02] LABS: ABG BASE EXCESS -2.5 mmol/L (-2.0-2.0); ABG HCO3 25.5 mmol/l (22-26); ABG O2 SATURATION 98.1 % (95-97); ARTERIAL BLOOD GAS PH 7.262 (7.35-7.45)
[2017-11-20 03:17] LABS: BASO % 0.1 % (0.0-1.0); HEMATOCRIT 42.9 % (42.0-52.0); HEMOGLOBIN 14.9 g/dl (14.0-18.0); LYMPH % 8.8 % (27.0-41.0); MEAN CELL VOLUME 90.7 fl (80.0-94.0); MEAN CORPUSCULAR HGB 31.5 pg (27.0-31.0); MEAN CORPUSCULAR HGB CONC 34.7 g/dl (33.0-37.0); MEAN PLATELET VOLUME 9.1 fl (9.6-12.3); MONO # 1.4 10*3/uL (0.1-1.0); MONO % 11.9 % (3.0-9.0); NEUT % 78.9 % (47.0-73.0); RED BLOOD COUNT 4.73 10*6/uL (4.50-5.90); RED CELL DISTRI WIDTH 14.4 % (0-14.5); WHITE BLOOD COUNT 11.4 10*3/uL (4.8-10.8)
[2017-11-20 03:22] LABS: PLATELET COUNT AUTOMATED 188 10*3/uL (130-400)
[2017-11-20 03:35] LABS: ALBUMIN 4.1 gm/dl (3.1-4.5); ALKALINE PHOSPHATASE 108 U/L (45-117); BUN 18 mg/dl (7-24); CHLORIDE 98 mmol/L (98-107); CPK 39 U/L (39-308); POTASSIUM 4.4 mmol/L (3.5-5.1); SGOT/AST 16 IU/L (3-35); SGPT/ALT 21 U/L (12-78); SODIUM 135 mmol/L (136-145); TOTAL PROTEIN 7.1 gm/dL (6.4-8.2)
[2017-11-20 03:36] LABS: TROPONIN I < 0.015 ng/ml (<0.045)
[2017-11-20 03:38] LABS: ACT PARTIAL THROMBO TIME 26.8 SECONDS (20.8-31.5)
[2017-11-20 06:41] LABS: PHOSPHOROUS 3.4 mg/dL (2.5-4.9)
[2017-11-20 06:49] LABS: THYROID STIM HORMONE (HS) 0.431 uIU/ml (0.358-4.75)
[2017-11-20 07:52] LABS: ABG BASE EXCESS -0.7 mmol/L (-2.0-2.0); ABG HCO3 24.3 mmol/l (22-26); ABG O2 SATURATION 93.3 % (95-97); ARTERIAL BLOOD GAS PH 7.368 (7.35-7.45); ARTERIAL BLOOD GAS PO2 65.4 mmHg (80-90)
[2017-11-21] VITALS: BP 139/74
[2017-11-21 04:00] VITALS: BP 145/70
[2017-11-21 05:56] LABS: BUN 15 mg/dl (7-24); CHLORIDE 101 mmol/L (98-107); POTASSIUM 3.9 mmol/L (3.5-5.1); SODIUM 135 mmol/L (136-145)
[2017-11-21 05:58] LABS: CREATININE 0.47 mg/dL (0.70-1.30)
[2017-11-21 06:39] LABS: BASO % 0.2 % (0.0-1.0); HEMATOCRIT 37.2 % (42.0-52.0); LYMPH # 0.5 10*3/uL (1.3-4.4); LYMPH % 7.3 % (27.0-41.0); MEAN CELL VOLUME 90.7 fl (80.0-94.0); MEAN CORPUSCULAR HGB CONC 34.1 g/dl (33.0-37.0); MONO # 0.3 10*3/uL (0.1-1.0); NEUT # 5.6 10*3/uL (2.3-7.9); NEUT % 88.2 % (47.0-73.0); PLATELET COUNT AUTOMATED 153 10*3/uL (130-400); RED CELL DISTRI WIDTH 14.6 % (0-14.5); WHITE BLOOD COUNT 6.3 10*3/uL (4.8-10.8)
[2017-11-21 06:53] LABS: HEMOGLOBIN 12.7 g/dl (14.0-18.0)
[2017-11-21 08:00] VITALS: BP 118/62
[2017-11-21] MEDS ORDERED: VITAMIN D5000 UNI1 PO (09:37)
[2017-11-21 12:00] VITALS: BP 115/71
[2017-11-21 16:00] VITALS: BP 124/71
[2017-11-21 20:00] VITALS: BP 136/88
[2017-11-22] VITALS: BP 132/65
[2017-11-22 07:41] LABS: HEMATOCRIT 37.5 % (42.0-52.0); HEMOGLOBIN 12.7 g/dl (14.0-18.0); LYMPH # 0.4 10*3/uL (1.3-4.4); LYMPH % 8.2 % (27.0-41.0); MEAN CELL VOLUME 90.8 fl (80.0-94.0); MEAN CORPUSCULAR HGB 30.8 pg (27.0-31.0); MEAN CORPUSCULAR HGB CONC 33.9 g/dl (33.0-37.0); MEAN PLATELET VOLUME 9.3 fl (9.6-12.3); MONO # 0.3 10*3/uL (0.1-1.0); NEUT # 4.3 10*3/uL (2.3-7.9); NEUT % 86.6 % (47.0-73.0); PLATELET COUNT AUTOMATED 139 10*3/uL (130-400); RED BLOOD COUNT 4.13 10*6/uL (4.50-5.90); RED CELL DISTRI WIDTH 14.5 % (0-14.5)
[2017-11-22 08:00] VITALS: BP 146/74
[2017-11-22 08:25] LABS: ALBUMIN 3.2 gm/dl (3.1-4.5); ALKALINE PHOSPHATASE 74 U/L (45-117); BUN 17 mg/dl (7-24); CHLORIDE 101 mmol/L (98-107); CREATININE 0.51 mg/dL (0.70-1.30); POTASSIUM 3.8 mmol/L (3.5-5.1); SGOT/AST 12 IU/L (3-35); SGPT/ALT 19 U/L (12-78); SODIUM 136 mmol/L (136-145); TOTAL PROTEIN 5.7 gm/dL (6.4-8.2)
[2017-11-22 12:00] VITALS: BP 139/69
[2017-11-22 16:00] VITALS: BP 135/71
[2017-11-22 20:00] VITALS: BP 144/83
[2017-11-23] VITALS: BP 153/84
[2017-11-23 06:40] LABS: HEMATOCRIT 39.4 % (42.0-52.0); HEMOGLOBIN 13.3 g/dl (14.0-18.0); LYMPH # 0.4 10*3/uL (1.3-4.4); LYMPH % 8.1 % (27.0-41.0); MEAN CELL VOLUME 90.4 fl (80.0-94.0); MEAN CORPUSCULAR HGB 30.5 pg (27.0-31.0); MEAN CORPUSCULAR HGB CONC 33.8 g/dl (33.0-37.0); MEAN PLATELET VOLUME 9.7 fl (9.6-12.3); MONO # 0.2 10*3/uL (0.1-1.0); NEUT # 4.5 10*3/uL (2.3-7.9); NEUT % 88.3 % (47.0-73.0); PLATELET COUNT AUTOMATED 131 10*3/uL (130-400); RED BLOOD COUNT 4.36 10*6/uL (4.50-5.90); RED CELL DISTRI WIDTH 14.4 % (0-14.5); WHITE BLOOD COUNT 5.1 10*3/uL (4.8-10.8)
[2017-11-23 06:46] LABS: BUN 16 mg/dl (7-24); CHLORIDE 100 mmol/L (98-107); CREATININE 0.59 mg/dL (0.70-1.30); POTASSIUM 3.8 mmol/L (3.5-5.1); SODIUM 136 mmol/L (136-145)
[2017-11-23 08:00] VITALS: BP 125/75; BP 159/78
[2017-11-23] MEDS ORDERED: OXYGEN NAS (10:17)
[2017-11-23] MEDS ORDERED: DOXYCYCLINE100 M3 PO (10:18)
[2017-11-23] MEDS ORDERED: PREDNISONE10 MG PO (10:18)
[2017-11-23 12:00] VITALS: BP 148/76
== END 2017-11-23 13:05 | disposition home or self-care (01) | DRG 871 ==
LOC: ED 02:19 → 4E 03:24 → EDHOLD 03:24 → ICCU 03:24 → 4E 11-21 15:05
PROVIDERS: Emergency Medicine; Internal Medicine; Internal Medicine Critical Care Medicine; Internal Medicine Hospice and Palliative Medicine
PROC: 5A09357 Assistance with Respiratory Ventilation, Less than 24 Consecutive Hours, Continuous Positive Airway Pressure (ICD-10-PCS; principal; 2017-11-20)
PROC: 5A09357 Assistance with Respiratory Ventilation, Less than 24 Consecutive Hours, Continuous Positive Airway Pressure (ICD-10-PCS; 2017-11-21)
PROC: 5A09357 Assistance with Respiratory Ventilation, Less than 24 Consecutive Hours, Continuous Positive Airway Pressure (ICD-10-PCS; 2017-11-23)
DX: A41.9 Sepsis, unspecified organism (principal); J18.9 Pneumonia, unspecified organism; J96.21 Acute and chronic respiratory failure with hypoxia; I11.0 Hypertensive heart disease with heart failure; E87.2 Acidosis; J96.11 Chronic respiratory failure with hypoxia; I50.32 Chronic diastolic (congestive) heart failure; Z99.81 Dependence on supplemental oxygen; J96.22 Acute and chronic respiratory failure with hypercapnia; J44.0 Chronic obstructive pulmonary disease with (acute) lower respiratory infection; E87.1 Hypo-osmolality and hyponatremia; J44.1 Chronic obstructive pulmonary disease with (acute) exacerbation; I16.1 Hypertensive emergency; E03.9 Hypothyroidism, unspecified; K21.9 Gastro-esophageal reflux disease without esophagitis; N40.0 Benign prostatic hyperplasia without lower urinary tract symptoms; H40.9 Unspecified glaucoma; E55.9 Vitamin D deficiency, unspecified; R65.20 Severe sepsis without septic shock; H54.7 Unspecified visual loss; I25.10 Atherosclerotic heart disease of native coronary artery without angina pectoris; R79.89 Other specified abnormal findings of blood chemistry; J20.9 Acute bronchitis, unspecified; D72.810 Lymphocytopenia; Z71.6 Tobacco abuse counseling; Z72.0 Tobacco use; Z88.2 Allergy status to sulfonamides; Z88.8 Allergy status to other drugs, medicaments and biological substances; Z91.041 Radiographic dye allergy status; Z88.5 Allergy status to narcotic agent; Z82.49 Family history of ischemic heart disease and other diseases of the circulatory system; Z91.013 Allergy to seafood; Z79.2 Long term (current) use of antibiotics; Z79.899 Other long term (current) drug therapy; Z85.038 Personal history of other malignant neoplasm of large intestine; Z87.440 Personal history of urinary (tract) infections; Z98.41 Cataract extraction status, right eye; Z90.49 Acquired absence of other specified parts of digestive tract; Z83.3 Family history of diabetes mellitus

== ENCOUNTER 2017-12-10 12:25 | Inpatient (IN) | payer OTHER ==
[~2017-12-10] VITALS: Ht 170.2 cm; Wt 64.5 kg
[2017-12-10] VITALS (7 sets, daily range): BP systolic 140–169; BP diastolic 74–87
--- NOTE | ~2017-12-10 | PR ---
[place], [place] PROGRESS NOTE NAME: [facility]ID [facility]A [id number] UNIT #: [id number] ROOM: 406 DOCTOR: RAE BUSTILLO MD,NAIMA BIRTHDATE: [birth year] DOS: 12/12/2017 PULMONARY PROGRESS NOTE SUBJECTIVE: The patient was seen and examined on 12/12/2017, was comfortably resting in the bed. The patient has not been noted symptoms of chest pain. No symptoms of coughing, shortness breath. The symptom has been improving progressively. The patient has not been noted any symptoms of chest pain and was eager to be discharged home. OBJECTIVE: VITAL SIGNS: For the patient which are recorded at noon, the blood pressure was noted as 130/70, heart rate of 62, respiratory rate 18, temperature was normal. HEENT: Examination shows head was atraumatic. Eye nonicterus. NECK: Supple. CARDIOVASCULAR: S1, S2 audible. LUNGS: Noted with general reduction in breath sounds bilaterally. There was no wheezing heard. ABDOMEN: Soft, nontender. EXTREMITIES: Without any acute edema. LABORATORY DATA: Blood culture done on 12/10/2017 were noted as negative. There are no other labs done today. IMPRESSION: The patient with progressive resolution of acute exacerbation of chronic obstructive pulmonary disease, acute bronchitis with current plan of therapy. The patient could be considered for home discharge. He has been doing well at this time with current treatment. Other supportive plan of management as previously will be continued without any changes. NAIMA MCBRIDE MD CM:PNTRANS [id number] NAIMA BUSTILLO MD 12/14/17 0053 interface
--- NOTE | ~2017-12-10 | EKG ---
[place], [place] ELECTROCARDIOGRAM REPORT NAME: DAVID ZAVALA UNIT #: [id number] ROOM: 406 DOCTOR: RAE BUSTILLO MD,NAIMA BIRTHDATE: [birth year] DOS: 12/10/2017 ELECTROCARDIOGRAM TIME: 12:32 p.m. Normal sinus rhythm noted. Heart rate 96 beats per minute. Peak T-wave noted in the chest leads, rule out hyperkalemia or other etiologies. Mild ST segment elevation noted in leads 2, 3 and AVF, rule out ischemia in the inferior myocardial wall. NAIMA MCBRIDE MD CM:EKGRPT:ELECTROCARDIOGRAM REPORT [id number] 1529 NAIMA BUSTILLO MD
--- NOTE | ~2017-12-10 | CON ---
[place], [place] REPORT OF CONSULTATION [id number] UNIT #: [id number] ROOM: 406 DOCTOR: NAIMA ARRIAGA MD BIRTHDATE: [birth year] DOS: 12/11/2017 PULMONARY CONSULTATION, EVALUATION AND MANAGEMENT CONSULTATION REQUESTED BY: Hospitalist service. REASON FOR CONSULTATION: For assessment of COPD exacerbation. HISTORY OF PRESENT ILLNESS: A 77-year-old white male who has been known to me with frequent hospitalization. Continued to smoke cigarettes for the patient in spite of knowing the effects of the patient ____ with continued tobacco use. The patient came into the Emergency Room on 12/10/2017. The patient's shortness breath has been noted progressively worsening for the past 3 days. He was noted with shortness of breath, minimal exertion with moderate to severe nonproductive cough and excessive wheezing or chest congestion, not been able to expectorate sputum. He has been assessed in the Emergency Room and admitted to the hospital during the transfer of the patient by the ambulance. The patient was also ordered the CPAP at that time. The patient has been noted comfortably resting on the bed, stated reduction of the symptom from yesterday. REVIEW OF SYSTEMS: CONSTITUTIONAL: Fatigue and tiredness noted without any symptoms of fever or chills. EYES: The patient noted blindness of the right eye for vision from previous ____ surgery and the patient's other complications. There was no discharge or pain reported in either of the eyes. EARS, NOSE, THROAT SYMPTOMS: Denies sore throat, hoarseness, otalgia, postnasal drainage or epistaxis. CARDIOVASCULAR: Denies anginal pain, edema or pain of the lower extremities. GASTROINTESTINAL: Denies dysphagia, nausea, vomiting, diarrhea, abdominal pain, hematemesis, melena or hematochezia. SKIN: Denies abnormal lesions or rashes. MUSCULOSKELETAL: Without any acute deformities or pain reported. CENTRAL NERVOUS SYSTEM: No dizziness, headache, diplopia or syncopal episodes. PAST MEDICAL HISTORY, SURGICAL HISTORY, SOCIAL HISTORY, OCCUPATIONAL HISTORY AND FAMILY HISTORIES: All reviewed from my consultation that was done on 11/20/2017 for the patient. All the problem patient has reported remains unchanged for the patient since that consultation after review with the patient. Please refer to this document for the patient for any details, which was available in the [employer]. CURRENT MEDICATIONS: Administered to the patient was noted as use of vitamin D, Flomax, Norvasc, Lovenox for DVT prophylaxis, Synthroid, Dulera, metoprolol, Mucinex, Solu-Medrol 60 mg b.i.d., DuoNeb q. 4 hours, Levaquin, and other p.r.n. medications. DRUG ALLERGY HISTORY: Noted. ALLERGIES: [place], [place] REPORT OF CONSULTATION NAME: DAVID ZAVALA UNIT #: [id number] ROOM: [facility] DOCTOR: RAE BUSTILLO MD,NAIMA BIRTHDATE: [birth year] 1. IVP DYE. 2. CODEINE PHOSPHATE. 3. PERCOCET. 4. BACTRIM. PHYSICAL EXAMINATION: GENERAL: A 77-year-old white male patient is currently lying in the bed. Height of 5 feet 7 inches, weight 242 pounds, BMI 22. VITAL SIGNS: Normal temperature, respiratory rate 20-26, heart rate of 83-102, blood pressure 116/87-140/74. Pulse oxygen saturation 3 liters nasal cannula 92% saturation. HEENT: Head examination for the patient was noted with blindness of the right eye. Head was atraumatic. Eyes were nonicterus. CARDIOVASCULAR: S1, S2 audible. LUNGS: Noted with general reduction in breath sound, diffuse expiratory wheezing without any crackles. ABDOMEN: Soft, flat, nontender, bowel sounds present. EXTREMITIES: The patient was noted without any acute edema. Chronic loss of muscle mass for the patient was seen. SKIN: No lesions, rash except dryness of the skin noted of the extremities. CENTRAL NERVOUS SYSTEM: Cranial nerves 2-12 intact. No focal deficit. LABORATORY DATA: The patient's arterial blood gas, pH 7.33, pCO2 of 48, pO2 of 92 on 3 liters cannula. CBC of the patient of 12/10/2017, WBC count 15.5, hemoglobin and hematocrit normal, platelet count 90,000. The CMP of the patient, normal BUN and creatinine. Sodium 131. The CMP of the patient this morning, BUN normal, creatinine normal, sodium 135. PT/PTT normal this morning. CBC this morning, hemoglobin 13.5, WBC count normal, platelet count 83,000. Chest x-ray of the patient that has been not noted in one view shows no acute pulmonary infiltration, changes of COPD or hyperinflation. IMPRESSION: 1. The patient will be currently admitted to the hospital with recurrent acute exacerbation of chronic obstructive pulmonary disease with acute on chronic hypercapnic respiratory failure. 2. The patient with continued chronic nicotine dependence as well. 3. Blindness of the right eye. 4. General anxiety and depression symptoms. PLAN OF MANAGEMENT: Continuation of the bronchodilators, oxygen supplementation, corticosteroids and the antibiotic without any changes. Abstinence of the tobacco use was recommended to the patient. The patient would not be willing to use the BiPAP at this time understand the problem related nonadherence with the current recommended therapy. Usual care, other supportive plan of management, and treatment. [place], [place] REPORT OF CONSULTATION NAME: DAVID ZAVALA [place] UNIT #: [id number] ROOM: [facility] DOCTOR: NAIMA ARRIAGA MD BIRTHDATE: [birth year] NAIMA MCBRIDE MD CM:CONSTR:REPORT OF CONSULTATION 1727 12/12/17 0210 interface
[~2017-12-10 12:25] MED LIST changes: +DOXYCYCLINE100 M3 PO; +OXYGEN NAS; +VITAMIN D5000 UNI1 PO
[2017-12-10 12:59] LABS: BASO % 0.2 % (0.0-1.0); EOS # 0.1 10*3/uL (0.0-0.4); EOS % 0.3 % (1.0-4.0); HEMATOCRIT 45.7 % (42.0-52.0); HEMOGLOBIN 15.8 g/dl (14.0-18.0); LYMPH # 1.2 10*3/uL (1.3-4.4); LYMPH % 7.9 % (27.0-41.0); MEAN CELL VOLUME 91.2 fl (80.0-94.0); MEAN CORPUSCULAR HGB 31.5 pg (27.0-31.0); MEAN CORPUSCULAR HGB CONC 34.6 g/dl (33.0-37.0); MONO # 1.2 10*3/uL (0.1-1.0); MONO % 7.7 % (3.0-9.0); NEUT # 12.9 10*3/uL (2.3-7.9); NEUT % 83.4 % (47.0-73.0); PLATELET COUNT AUTOMATED 90 10*3/uL (130-400); RED BLOOD COUNT 5.01 10*6/uL (4.50-5.90); RED CELL DISTRI WIDTH 14.7 % (0-14.5); WHITE BLOOD COUNT 15.5 10*3/uL (4.8-10.8)
[2017-12-10 13:02] LABS: ABG HCO3 25.1 mmol/l (22-26); ABG O2 SATURATION 97.4 % (95-97); ARTERIAL BLOOD GAS PCO2 48.3 mmHg (35-45); ARTERIAL BLOOD GAS PH 7.334 (7.35-7.45); ARTERIAL BLOOD GAS PO2 92.3 mmHg (80-90)
[2017-12-10 13:14] LABS: ALBUMIN 3.8 gm/dl (3.1-4.5); ALKALINE PHOSPHATASE 94 U/L (45-117); BUN 9 mg/dl (7-24); CHLORIDE 100 mmol/L (98-107); CREATININE 0.42 mg/dL (0.70-1.30); SGOT/AST 15 IU/L (3-35); SGPT/ALT 20 U/L (12-78); SODIUM 131 mmol/L (136-145); TOTAL PROTEIN 7.3 gm/dL (6.4-8.2)
[2017-12-10] MEDS ORDERED: LATANOPROST2.5 ML OU (15:22)
[2017-12-10] MEDS ORDERED: SYMB160 INH (15:23)
[2017-12-10] MEDS ORDERED: COMBIVENT RESPIM4 GM INH (15:24)
[2017-12-10] MEDS ORDERED: PROVENTIL HFA6.7 GM IH (15:27)
[2017-12-11] VITALS: BP 96/50
[2017-12-11 06:58] LABS: ALKALINE PHOSPHATASE 75 U/L (45-117); BUN 11 mg/dl (7-24); CHLORIDE 102 mmol/L (98-107); CREATININE 0.45 mg/dL (0.70-1.30); POTASSIUM 4.1 mmol/L (3.5-5.1); SGOT/AST 13 IU/L (3-35); SGPT/ALT 18 U/L (12-78); SODIUM 135 mmol/L (136-145); TOTAL PROTEIN 5.9 gm/dL (6.4-8.2)
[2017-12-11 06:59] LABS: ACT PARTIAL THROMBO TIME 29.4 SECONDS (20.8-31.5); HEMATOCRIT 38.1 % (42.0-52.0); HEMOGLOBIN 13.1 g/dl (14.0-18.0); MEAN CELL VOLUME 91.8 fl (80.0-94.0); MEAN CORPUSCULAR HGB 31.6 pg (27.0-31.0); MEAN CORPUSCULAR HGB CONC 34.4 g/dl (33.0-37.0); PLATELET COUNT AUTOMATED 83 10*3/uL (130-400); RED BLOOD COUNT 4.15 10*6/uL (4.50-5.90); RED CELL DISTRI WIDTH 14.4 % (0-14.5); WHITE BLOOD COUNT 7.3 10*3/uL (4.8-10.8)
[2017-12-11 08:00] VITALS: BP 114/67
[2017-12-11 08:04] LABS: PLATELET SUFFICIENCY LOW (NORMAL); TOTAL CELLS COUNTED 100 #CELLS
[2017-12-11 12:00] VITALS: BP 150/72
[2017-12-11 16:00] VITALS: BP 120/63
[2017-12-11 20:00] VITALS: BP 127/78
[2017-12-12 00:02] VITALS: BP 133/74
[2017-12-12 08:00] VITALS: BP 144/80
[2017-12-12 12:00] VITALS: BP 130/70
[2017-12-12] MEDS ORDERED: PREDNISONE10 MG PO (13:59)
== END 2017-12-12 14:21 | disposition home or self-care (01) | DRG 871 ==
LOC: ED 12:25 → 4E 14:05 → EDHOLD 14:05 → 4E 14:11
PROVIDERS: Emergency Medicine; Family Medicine
DX: A41.9 Sepsis, unspecified organism (principal); J18.9 Pneumonia, unspecified organism; J96.21 Acute and chronic respiratory failure with hypoxia; I11.0 Hypertensive heart disease with heart failure; D69.6 Thrombocytopenia, unspecified; I50.32 Chronic diastolic (congestive) heart failure; E87.1 Hypo-osmolality and hyponatremia; Z99.81 Dependence on supplemental oxygen; J96.22 Acute and chronic respiratory failure with hypercapnia; J44.0 Chronic obstructive pulmonary disease with (acute) lower respiratory infection; J44.1 Chronic obstructive pulmonary disease with (acute) exacerbation; N40.0 Benign prostatic hyperplasia without lower urinary tract symptoms; K21.9 Gastro-esophageal reflux disease without esophagitis; R65.20 Severe sepsis without septic shock; H40.9 Unspecified glaucoma; E03.9 Hypothyroidism, unspecified; F41.0 Panic disorder [episodic paroxysmal anxiety]; F17.210 Nicotine dependence, cigarettes, uncomplicated; I25.10 Atherosclerotic heart disease of native coronary artery without angina pectoris; R73.9 Hyperglycemia, unspecified; E55.9 Vitamin D deficiency, unspecified; H54.40 Blindness, one eye, unspecified eye; F41.1 Generalized anxiety disorder; F32.9 Major depressive disorder, single episode, unspecified; J20.9 Acute bronchitis, unspecified; Z98.41 Cataract extraction status, right eye; Z71.6 Tobacco abuse counseling; Z79.899 Other long term (current) drug therapy; Z85.038 Personal history of other malignant neoplasm of large intestine; Z88.5 Allergy status to narcotic agent; Z88.2 Allergy status to sulfonamides; Z88.8 Allergy status to other drugs, medicaments and biological substances; Z88.1 Allergy status to other antibiotic agents; Z91.041 Radiographic dye allergy status; Z83.3 Family history of diabetes mellitus; Z82.49 Family history of ischemic heart disease and other diseases of the circulatory system

== ENCOUNTER 2017-12-27 02:32 | Inpatient (IN) | payer OTHER ==
[~2017-12-27] VITALS: Ht 170.2 cm; Wt 62.4 kg
[2017-12-27] VITALS (7 sets, daily range): BP systolic 123–151; BP diastolic 66–88
--- NOTE | ~2017-12-27 | EKG ---
[place], [place] ELECTROCARDIOGRAM REPORT NAME: DAVID ZAVALA UNIT #: [id number] ROOM: 424 DOCTOR: RAE BUSTILLO MD,NAIMA BIRTHDATE: [birth year] DOS: 12/27/2017 TIME: 02:42 a.m. The electrocardiogram shows normal sinus rhythm, heart rate 70 beats per minute. Normal active crackles. Cardiac abnormalities noted except prominent T-wave at the chest leads correlated to the patient's electrolytes as well as history. NAIMA MCBRIDE MD CM:EKGRPT:ELECTROCARDIOGRAM REPORT [id number] [id number] NAIMA BUSTILLO MD
--- NOTE | ~2017-12-27 | CON ---
[place], [place] REPORT OF CONSULTATION NAME: [facility]A [id number] UNIT #: [id number] ROOM: 424 DOCTOR: NAIMA ARRIAGA MD BIRTHDATE: [birth year] DOS: 12/28/2017 PULMONARY CONSULTATION, EVALUATION, AND MANAGEMENT CONSULTATION REQUESTED BY: Hospitalist services. REASON FOR CONSULTATION: For assessment of the recurrent increased respiratory symptoms. HISTORY OF PRESENT ILLNESS: This is a 77-year-old white male patient noted very familiar to me with recurrent frequent hospitalization for short stay for the management of COPD exacerbation and being discharged home. Continue to smoke cigarettes. The patient stated he is taking his previous respiratory medications as ordered. Smoking reported by the patient 3-4 cigarettes a day. He presented to the Emergency Room on 12/27/2017 as he developed progressive increased shortness of breath ongoing for the past few days. The symptoms were associated with nonproductive cough and includes wheezing with tightness in the chest. The patient has been assessed in the Emergency Room and was admitted to the hospital for exacerbation of COPD management. This morning as the patient was seen, he stated reduction of the respiratory symptom was still noted with a cough, which was noted nonproductive [id number]. Wheezing and the shortness of breath have been decreased. There were no symptoms of hemoptysis reported. REVIEW OF SYSTEMS: CONSTITUTIONAL SYMPTOMS: Fatigue and tiredness noted without any symptoms of fever or chills. EYES: Denies any burning, redness, or tenderness. EARS, NOSE, AND THROAT SYMPTOMS: No sore throat, hoarseness, otalgia, postnasal drainage, or epistaxis. CARDIOVASCULAR SYSTEM: Denies any angina pain, edema, or pain of the lower extremities. GASTROINTESTINAL SYMPTOMS: No dysphagia, nausea, vomiting, diarrhea, abdominal pain, hematemesis, melena, or hematochezia. SKIN: Denies abnormal lesions or rashes. MUSCULOSKELETAL SYMPTOMS: He has not reported any acute deformities, lesions, or rashes. The remaining systems were reviewed and they were noted all negative. PAST MEDICAL HISTORY: Noted with last hospitalization on this patient's admission and discharge from 12/10/2017 and 12/12/2017 for the medical management of acute exacerbation of chronic obstructive pulmonary disease and bronchitis. The past medical history was known with: 1. Chronic obstructive pulmonary disease. 2. Chronic hypoxic respiratory failure, use of oxygen supplementation on 2 liters nasal cannula. 3. The patient with history of congestive heart failure, diastolic dysfunction. 4. Chronic nicotine dependence. 5. Coronary artery disease. [place], [place] REPORT OF CONSULTATION NAME: DAVID ZAVALA UNIT #: [id number] ROOM: [facility] hospital DOCTOR: RAE BUSTILLO MD,[facility] BIRTHDATE: [birth year] 6. Benign prostatic hypertrophy. 7. Chronic indwelling Carlisle catheter. PAST SURGICAL HISTORY: Noted with: 1. Pilonidal cyst. 2. Appendectomy. 3. Chronic aspiration, coronary stents insertion. 4. Endovascular repair of the patient's abdominal aortic aneurysm. 5. Coronary artery angioplasty. 6. Therapeutic bronchoscopy. 7. Past intubation and mechanical ventilation in 2018. SOCIAL HISTORY: The patient is and lives at home. Tobacco use noted from the age of [id number] about a pack of cigarettes per day, but currently he was smoking less than a pack of cigarettes per day as per the patient. There was no history of alcohol use or illicit drug use reported. The patient worked in a place, where he has been exposed to the asbestos and significant dust at work for several years. 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 FAMILY HISTORY: Unknown by the patient. MEDICATIONS: Current medications administered noted vitamin D, Flomax, Norvasc, levothyroxine, metoprolol succinate, nicotine replacement patches, Dulera, Solu-Medrol, Lovenox, DuoNeb, levofloxacin, lorazepam, and other p.r.n. medications. DRUG ALLERGIES: THE PATIENT REPORTED ALLERGY TO 1. IVP DYE. 2. CODEINE PHOSPHATE. 3. PERCOCET. 4. BACTRIM. PHYSICAL EXAMINATION: GENERAL: This is a 77-year-old male, who has been noted currently awake and alert without any acute distress. His height recorded as 5 feet 7 inches, weight 137 pounds, and BMI 21.5. VITAL SIGNS: Vital signs of the patient was noted as normal temperature, respiratory rate 18-17, heart rate 66-76, and blood pressure 141/69-151/80. Pulse oxygen saturation on 2 liters nasal cannula is 94% saturation recorded. HEENT: On examination, head was atraumatic. Eyes nonicterus. 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 NECK: Supple. CARDIOVASCULAR SYSTEM: S1, S2 audible. LUNGS: The patient was noted with general reduction in breath sounds bilaterally. There were no rales or crackles. Mild expiratory wheezing bilaterally. ABDOMEN: Flat, soft, and nontender. Bowel sounds present. EXTREMITIES: The patient was noted without any acute edema. MUSCULOSKELETAL SYMPTOMS: Without any acute deformity. [place], [place] REPORT OF CONSULTATION NAME: DAVID ZAVALA UNIT #: [id number] ROOM: Critical access hospital DOCTOR: RAE BUSTILLO MD,NAIMA BIRTHDATE: [birth year] SKIN: No lesions or rashes. LABORATORY DATA: The CBC for the patient that was done this morning noted with platelet count of 128,000; otherwise, CBC normal. PT and INR noted normal yesterday. CMP yesterday, glucose 122, BUN 12, and creatinine was normal. The CBC of the patient of 12/28/2017, WBC count normal, hemoglobin 13.4, hematocrit 39.7, and platelet count was 128,000. The BMP of the patient, glucose 135, BUN normal, and creatinine was normal. Chest x-ray, 1 view that was done was noted without any acute abnormalities and changes of severe COPD was seen. IMPRESSION: Recurrent acute exacerbation of chronic obstructive pulmonary disease, acute tracheobronchitis with chronic nicotine dependence as well. Treated at this time with corticosteroids, bronchodilators, and other therapies. PLAN OF MANAGEMENT: Continue current dose of corticosteroids, bronchodilators, and oxygen supplementation as previously. Sputum for Gram stain and culture and nicotine placement patches. The patient stated that he will quit smoking cigarettes if we get the nicotine patches at home as well. Observe the respiratory status in the next 24 hours. If the patient does show further improvement in symptoms, may be considered for home discharge tomorrow morning. In the meantime, continue other supportive plan of management, care, and treatment. Usual treatment and other therapies. NAIMA MCBRIDE MD CM:CONSTR:REPORT OF CONSULTATION 1156 12/28/17 8904 interface
[~2017-12-27 02:32] MED LIST changes: +LATANOPROST2.5 ML OU; +PROVENTIL HFA6.7 GM IH; +SYMB160 INH
[2017-12-27 02:57] LABS: BASO % 0.3 % (0.0-1.0); EOS % 0.4 % (1.0-4.0); HEMATOCRIT 41.5 % (42.0-52.0); HEMOGLOBIN 14.3 g/dl (14.0-18.0); LYMPH # 1.3 10*3/uL (1.3-4.4); LYMPH % 16.3 % (27.0-41.0); MEAN CELL VOLUME 91.6 fl (80.0-94.0); MEAN CORPUSCULAR HGB 31.6 pg (27.0-31.0); MEAN CORPUSCULAR HGB CONC 34.5 g/dl (33.0-37.0); MEAN PLATELET VOLUME 9.4 fl (9.6-12.3); MONO # 0.7 10*3/uL (0.1-1.0); MONO % 8.8 % (3.0-9.0); NEUT # 5.8 10*3/uL (2.3-7.9); NEUT % 72.7 % (47.0-73.0); PLATELET COUNT AUTOMATED 128 10*3/uL (130-400); RED BLOOD COUNT 4.53 10*6/uL (4.50-5.90); RED CELL DISTRI WIDTH 14.3 % (0-14.5); WHITE BLOOD COUNT 7.9 10*3/uL (4.8-10.8)
[2017-12-27 03:14] LABS: ALBUMIN 3.5 gm/dl (3.1-4.5); ALKALINE PHOSPHATASE 77 U/L (45-117); BUN 12 mg/dl (7-24); CHLORIDE 101 mmol/L (98-107); LIPASE 284 U/L (73-393); POTASSIUM 3.9 mmol/L (3.5-5.1); SGOT/AST 17 IU/L (3-35); SGPT/ALT 20 U/L (12-78); SODIUM 136 mmol/L (136-145); TOTAL PROTEIN 6.3 gm/dL (6.4-8.2)
[2017-12-27 03:18] LABS: TROPONIN I < 0.015 ng/ml (<0.045)
[2017-12-28] VITALS: BP 134/69
[2017-12-28 06:37] LABS: BASO % 0.1 % (0.0-1.0); EOS % 0.1 % (1.0-4.0); HEMATOCRIT 39.7 % (42.0-52.0); HEMOGLOBIN 13.4 g/dl (14.0-18.0); LYMPH # 0.9 10*3/uL (1.3-4.4); LYMPH % 8.9 % (27.0-41.0); MEAN CELL VOLUME 93.2 fl (80.0-94.0); MEAN CORPUSCULAR HGB 31.5 pg (27.0-31.0); MEAN CORPUSCULAR HGB CONC 33.8 g/dl (33.0-37.0); MEAN PLATELET VOLUME 9.4 fl (9.6-12.3); MONO # 0.8 10*3/uL (0.1-1.0); MONO % 7.9 % (3.0-9.0); NEUT # 8.2 10*3/uL (2.3-7.9); NEUT % 81.5 % (47.0-73.0); PLATELET COUNT AUTOMATED 128 10*3/uL (130-400); RED BLOOD COUNT 4.26 10*6/uL (4.50-5.90); RED CELL DISTRI WIDTH 14.4 % (0-14.5); WHITE BLOOD COUNT 10.1 10*3/uL (4.8-10.8)
[2017-12-28 06:51] LABS: BUN 12 mg/dl (7-24); CHLORIDE 103 mmol/L (98-107); CREATININE 0.59 mg/dL (0.70-1.30); PHOSPHOROUS 2.8 mg/dL (2.5-4.9); POTASSIUM 3.6 mmol/L (3.5-5.1); SODIUM 137 mmol/L (136-145)
[2017-12-28 08:00] VITALS: BP 141/69
[2017-12-28 12:00] VITALS: BP 155/83
[2017-12-28] MEDS ORDERED: LEVAQUIN500 M2 PO (14:34)
[2017-12-28] MEDS ORDERED: PREDNISONE10 MG PO (14:34)
[2017-12-28 16:00] VITALS: BP 126/81
== END 2017-12-28 18:00 | disposition home health service (06) | DRG 190 ==
LOC: ED 02:32 → 4E 03:30 → EDHOLD 03:30 → 4E 03:39
PROVIDERS: Emergency Medicine Emergency Medical Services; Internal Medicine
DX: J44.0 Chronic obstructive pulmonary disease with (acute) lower respiratory infection (principal); J18.9 Pneumonia, unspecified organism; E44.0 Moderate protein-calorie malnutrition; I11.0 Hypertensive heart disease with heart failure; J96.11 Chronic respiratory failure with hypoxia; D69.6 Thrombocytopenia, unspecified; I50.32 Chronic diastolic (congestive) heart failure; J44.1 Chronic obstructive pulmonary disease with (acute) exacerbation; Z77.090 Contact with and (suspected) exposure to asbestos; R73.9 Hyperglycemia, unspecified; F17.210 Nicotine dependence, cigarettes, uncomplicated; N40.0 Benign prostatic hyperplasia without lower urinary tract symptoms; K21.9 Gastro-esophageal reflux disease without esophagitis; J20.9 Acute bronchitis, unspecified; H40.9 Unspecified glaucoma; E03.9 Hypothyroidism, unspecified; E55.9 Vitamin D deficiency, unspecified; F41.0 Panic disorder [episodic paroxysmal anxiety]; I25.10 Atherosclerotic heart disease of native coronary artery without angina pectoris; Z88.2 Allergy status to sulfonamides; Z88.1 Allergy status to other antibiotic agents; Z99.81 Dependence on supplemental oxygen; Z85.038 Personal history of other malignant neoplasm of large intestine; Z71.6 Tobacco abuse counseling; Z91.041 Radiographic dye allergy status; Z88.5 Allergy status to narcotic agent; Z91.013 Allergy to seafood; I25.2 Old myocardial infarction; Z98.41 Cataract extraction status, right eye; Z82.49 Family history of ischemic heart disease and other diseases of the circulatory system; Z83.3 Family history of diabetes mellitus; Z79.899 Other long term (current) drug therapy; Z68.21 Body mass index [BMI] 21.0-21.9, adult

== ENCOUNTER 2018-04-22 06:39 | Inpatient (IN) | payer OTHER ==
[~2018-04-22] VITALS: Ht 170.2 cm; Wt 69.9 kg
[2018-04-22] VITALS (10 sets, daily range): BP systolic 119–170; BP diastolic 64–111
--- NOTE | ~2018-04-22 | EKG ---
[place], [place] ELECTROCARDIOGRAM REPORT NAME: DAVID ZAVALA UNIT #: [id number] ROOM: 502 DOCTOR: BILL DRAFT REPORT BIRTHDATE: [birth year] [facility] Test Date: 2018-04-22 Test Time: 07:36:24 Pat Name: DAVID ZAVALA Department: Room: 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
--- NOTE | ~2018-04-22 | PR ---
[place], [place] PROGRESS NOTE NAME: ADVID ZAVALA UNIT #: [id number] ROOM: 502 DOCTOR: NAIMA ARRIAGA MD BIRTHDATE: [birth year] DOS: 04/24/2018 SUBJECTIVE: He has been doing well with current medical management with further reduction of the respiratory symptom noted with improvement in cough and shortness of breath. There were no symptoms of chest pain or hemoptysis reported by the patient. OBJECTIVE: VITAL SIGNS: Normal temperature, respiratory rate 18, heart rate 66, and blood pressure 146/82. The pulse oxygen saturation noted on 3 liters nasal cannula 96% saturation. HEENT: No acute change. NECK: Supple. CARDIOVASCULAR: S1, S2 audible. LUNGS: The patient was noted without any wheeze or crackles. ABDOMEN: Soft and nontender. Bowel sounds present. EXTREMITIES: The patient noted without any acute edema. LABORATORY DATA: CBC this morning, normal WBC count. Hemoglobin was noted as mildly reduced. The BMP noted normal BUN and creatinine. IMPRESSION: 1. The patient who has been currently admitted to the hospital is being treated and shows improvement in the respiratory status as acute exacerbation of chronic obstructive pulmonary disease, acute respiratory symptoms of bronchitis. 2. Chronic hypoxic respiratory failure, remains stable. 3. Incidental finding of 4-mm nodule which were noted in the left upper lobe, required further assessment. PLAN OF MANAGEMENT: The patient recommended for home discharge and outpatient assessment to be planned by the patient for further care for this patient in my office for the pulmonary nodule and severe chronic obstructive pulmonary disease. The patient understood that. Other supportive therapy, plan of management, and care plan. [place], [place] PROGRESS NOTE NAME: DAVID ZAVALA UNIT #: [id number] ROOM: [facility] DOCTOR: NAIMA ARRIAGA MD BIRTHDATE: [birth year] NAIMA MCBRIDE MD CM:PNTRANS 1341 1413 NAIMA BUSTILLO MD 04/24/18 1411 interface
--- NOTE | ~2018-04-22 | CON ---
[place], [place] REPORT OF CONSULTATION NAME: DAVID ZAVALA [facility] #: [id number] UNIT #: [id number] ROOM: 502 DOCTOR: RAE BUSTILLO MDNAIMA BIRTHDATE: [birth year] DOS: 04/23/2018 CONSULTATION REQUESTED BY: Hospitalist Service. REASON FOR CONSULTATION: Exacerbation of chronic obstructive pulmonary disease with symptoms of shortness of breath. HISTORY OF PRESENT ILLNESS: A 77-year-old white male patient known to me with past recurrent hospitalization, but has not been admitted to the hospital since 12/2017. He presented to the Emergency Room as the patient has been experiencing symptoms of increased shortness of breath for the past 2 to 3 days with the symptoms noted progressively worsening. The patient requiring assessment in the Emergency Room. The patient denies symptoms of chest pain and fever. He does have symptoms of cough without any sputum expectoration. The cough has been noted with chest congestion. The wheezing was reported by the patient. Tightening of the chest was noted without any chest pain. REVIEW OF SYSTEMS: CONSTITUTIONAL: The patient noted symptoms of fatigue and tiredness and symptoms of fever or chills. EYES: Denies burning, redness, or tenderness noted. Decreased visual acuity, which is a chronic issue. EARS, NOSE, THROAT SYMPTOMS: Denies sore throat, hoarseness, otalgia, postnasal drainage. CARDIOVASCULAR: Denies joint pain, palpitation, edema of lower extremities. GASTROINTESTINAL: Denies dysphagia, nausea, vomiting, diarrhea, abdominal pain, hematemesis, melena, or hematochezia. SKIN: Denies abnormal lesions or rashes. CENTRAL NERVOUS SYSTEM: Denies any dizziness, headache, diplopia, syncopal episodes. Remaining systems were reviewed, they were noted all negative. PAST MEDICAL HISTORY: The patient was known with history of: 1. Chronic obstructive pulmonary disease. 2. Past frequent hospitalization. 3. Chronic hypoxic respiratory failure requiring oxygen supplementation 2 liter nasal cannula. 4. Congestive heart failure, diastolic dysfunction. 5. Nicotine dependence in the past, stated nonsmoker for the past 1 month. 6. Coronary artery disease. 7. Benign prostatic hypertrophy, chronic indwelling Carlisle catheter. 8. History of abdominal aortic aneurysm treated with endovascular graft. PAST SURGICAL HISTORY: 1. Pilonidal cyst. 2. Appendectomy. 3. Coronary artery disease for this patient with coronary artery stents. 4. Endovascular repair for the patient's abdominal aortic aneurysm. 5. Coronary angioplasty. [place], [place] REPORT OF CONSULTATION NAME: DAVID ZAVALA UNIT #: [id number] ROOM: [facility] DOCTOR: RICHARD ARRIAGA MDULAM BIRTHDATE: [birth year] 6. Therapeutic bronchoscopy. 7. Past intubation and mechanical ventilation with respiratory failure management. SOCIAL HISTORY: The patient is and lives at home. Denies history of alcohol use, illicit drug use. Tobacco use noted from the age of 48 years, a pack of cigarettes per day, stating discontinued using tobacco products since 03/2018. Denies history of alcohol use or any illicit drug use. The patient stated his work job exposure was related to the asbestos and other dust for several years. 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 FAMILY HISTORY: Unknown by the patient. CURRENT MEDICATIONS: Use of vitamin D, Norvasc, levothyroxine, Protonix, metoprolol succinate, IV Solu-Medrol 60 mg q.8h., Pulmicort Respules, DuoNeb, Lovenox for deep vein thrombosis prophylaxis, Rocephin intravenously, and the Zithromax. DRUG ALLERGIES: THE PATIENT WAS NOTED ALLERGY: 1. IVP DYE. 2. FISH. 3. CODEINE. 4. PERCOCET. 5. BACTRIM. PHYSICAL EXAMINATION: GENERAL: A 77-year-old white male patient currently noted awake and alert without any acute distress. VITAL SIGNS: Height of 5 feet 7 inches, weight of 154 pounds, BMI 24. The patient has a normal temperature. The respiratory rate 20, heart rate 76, blood pressure 146/88. Pulse ox saturation on 3 liters cannula 92% saturation. HEENT: Examination shows head was atraumatic. Eyes nonicterus. NECK: Supple. CARDIOVASCULAR: S1, S2 is audible. LUNGS: The patient was noted without any crackles. Decreased breath sounds are noted with expiratory wheezing. ABDOMEN: Soft and nontender. Bowel sounds present. EXTREMITIES: Without any acute edema. SKIN: No lesions or rashes. CENTRAL NERVOUS SYSTEM: Cranial nerves 2-12 intact. MUSCULOSKELETAL: Without any acute deformities. LABORATORY DATA: CMP today, normal BUN and creatinine. Sodium was noted mildly elevated at 145. The PT, PTT this morning was noted as normal. CBC this morning: WBC count was normal, hemoglobin 12.2, and platelet count normal. CBC of yesterday on admission was normal. The eosinophils were noted elevated for the patient and normal white cell count of 4.6%. The CMP yesterday, normal BUN, creatinine and electrolytes. Troponin for the patient with 3 sets normal yesterday as well. The patient has a CT scan of the chest, which was done [place], [place] REPORT OF CONSULTATION NAME: DAVID ZAVALA UNIT #: [id number] ROOM: [facility] DOCTOR: NAIMA ARRIAGA MD BIRTHDATE: [birth year] without contrast yesterday was reviewed this patient noted with 4 mm left upper pulmonary nodule. Descending aortic aneurysm of 4.9 without any evidence of aortic dissection. There was no pulmonary infiltration, chronic small lingular atelectasis was noted. IMPRESSION: 1. The patient currently admitted to the hospital noted with recurrent acute exacerbation of chronic obstructive pulmonary disease, history of chronic hypoxic respiratory failure. 2. Incidental finding of 4 mm left upper lung pulmonary nodule patient as well. At this time need to be further assessed with outpatient followup CT scan in about 6 months. 3. Past history of heavy nicotine dependent patient with recent tobacco cessation reported by the patient. 4. Asymptomatic descending thoracic aortic aneurysm. PLAN OF TREATMENT: Continuation of the bronchodilators, oxygen supplementation. Decrease Solu-Medrol dose to the patient's lower dose. Wheezing has been noted decreased with improvement in the symptoms also reported by the patient. Outpatient CT scan 6 months would be advised if the patient wished to make an appointment in the office for further assessment of that. Continue abstain from tobacco use. Continue bronchodilators. Continuation of antibiotic. Other additional treatment changes will be recommended based on progression of the illness. NAIMA MCBRIDE MD CM:CONSTR:REPORT OF CONSULTATION 1006 04/24/18 0136 interface
--- NOTE | ~2018-04-22 | CON ---
[place], [place] REPORT OF CONSULTATION NAME: DAVID ZAVALA UNIT #: [id number] ROOM: 502 DOCTOR: RAE BUSTILLO MD,NAIMA BIRTHDATE: [birth year] DOS: 04/23/2018 ADDENDUM REVIEW OF SYSTEMS: CONSTITUTIONAL: The patient noted symptoms of fatigue and tiredness and symptoms of fever or chills. EYES: Denies burning, redness, or tenderness noted. Decreased visual acuity, which is a chronic issue. EARS, NOSE, THROAT SYMPTOMS: Denies sore throat, hoarseness, otalgia, postnasal drainage. CARDIOVASCULAR: Denies joint pain, palpitation, edema of lower extremities. GASTROINTESTINAL: Denies dysphagia, nausea, vomiting, diarrhea, abdominal pain, hematemesis, melena, or hematochezia. SKIN: Denies abnormal lesions or rashes. CENTRAL NERVOUS SYSTEM: Denies any dizziness, headache, diplopia, syncopal episodes. Remaining systems were reviewed, they were noted negative. NAIMA MCBRIDE MD CM:CONSTR:REPORT OF CONSULTATION 1049 04/26/18 0910 JOSE LIMA.R
[2018-04-22 07:51] LABS: BASO % 0.5 % (0.0-1.0); EOS # 0.4 10*3/uL (0.0-0.4); EOS % 4.6 % (1.0-4.0); HEMATOCRIT 42.9 % (42.0-52.0); HEMOGLOBIN 14.3 g/dl (14.0-18.0); LYMPH # 0.9 10*3/uL (1.3-4.4); LYMPH % 10.2 % (27.0-41.0); MEAN CELL VOLUME 89.4 fl (80.0-94.0); MEAN CORPUSCULAR HGB 29.8 pg (27.0-31.0); MEAN CORPUSCULAR HGB CONC 33.3 g/dl (33.0-37.0); MONO # 0.8 10*3/uL (0.1-1.0); NEUT # 6.3 10*3/uL (2.3-7.9); NEUT % 75.3 % (47.0-73.0); PLATELET COUNT AUTOMATED 150 10*3/uL (130-400); RED CELL DISTRI WIDTH 13.6 % (0-14.5); WHITE BLOOD COUNT 8.3 10*3/uL (4.8-10.8)
[2018-04-22 08:07] LABS: ALBUMIN 3.6 gm/dl (3.1-4.5); ALKALINE PHOSPHATASE 108 U/L (45-117); BUN 15 mg/dl (7-24); CHLORIDE 107 mmol/L (98-107); CREATININE 0.67 mg/dL (0.70-1.30); POTASSIUM 4.2 mmol/L (3.5-5.1); SGOT/AST 21 IU/L (3-35); SGPT/ALT 23 U/L (12-78); SODIUM 142 mmol/L (136-145); TOTAL PROTEIN 7.3 gm/dL (6.4-8.2)
[2018-04-22 08:09] LABS: TROPONIN I < 0.015 ng/ml (<0.045)
[2018-04-23] VITALS: BP 145/70
[2018-04-23 06:39] LABS: LYMPH # 0.5 10*3/uL (1.3-4.4); LYMPH % 7.7 % (27.0-41.0); MEAN CORPUSCULAR HGB 29.8 pg (27.0-31.0); MEAN CORPUSCULAR HGB CONC 33.9 g/dl (33.0-37.0); MEAN PLATELET VOLUME 10.1 fl (9.6-12.3); MONO # 0.5 10*3/uL (0.1-1.0); MONO % 6.8 % (3.0-9.0); NEUT % 85.1 % (47.0-73.0); PLATELET COUNT AUTOMATED 145 10*3/uL (130-400); RED BLOOD COUNT 4.09 10*6/uL (4.50-5.90); RED CELL DISTRI WIDTH 13.5 % (0-14.5)
[2018-04-23 06:43] LABS: HEMOGLOBIN 12.2 g/dl (14.0-18.0)
[2018-04-23 06:44] LABS: ACT PARTIAL THROMBO TIME 26.7 SECONDS (20.8-31.5)
[2018-04-23 06:48] LABS: ALBUMIN 3.2 gm/dl (3.1-4.5); BUN 14 mg/dl (7-24); CHLORIDE 107 mmol/L (98-107); CHOLESTEROL 146 mg/dL (<200); CREATININE 0.61 mg/dL (0.70-1.30); PHOSPHOROUS 2.6 mg/dL (2.5-4.9); POTASSIUM 4.1 mmol/L (3.5-5.1); SGOT/AST 14 IU/L (3-35); SGPT/ALT 18 U/L (12-78); SODIUM 141 mmol/L (136-145); TOTAL PROTEIN 6.5 gm/dL (6.4-8.2); TRIGLYCERIDES 36 mg/dl (<150); VLDL CHOLESTEROL 7 mg/dL (6-40)
[2018-04-23 06:56] LABS: ALKALINE PHOSPHATASE 90 U/L (45-117); FREE T4 1.04 ng/dl (0.76-1.46); HDL CHOLESTEROL 48 mg/dl (40-60); LDL CHOLESTEROL 91 mg/dL (9-159)
[2018-04-23 07:30] LABS: VITAMIN D, 25-HYDROXY 53.9 ng/mL (30-100)
[2018-04-23 08:39] VITALS: BP 146/88
[2018-04-23 12:00] VITALS: BP 145/75
[2018-04-23 16:00] VITALS: BP 146/88
[2018-04-23 20:00] VITALS: BP 167/92
[2018-04-24 02:00] VITALS: BP 132/80
[2018-04-24 07:15] LABS: BASO % 0.1 % (0.0-1.0); HEMATOCRIT 38.6 % (42.0-52.0); HEMOGLOBIN 12.9 g/dl (14.0-18.0); LYMPH # 0.7 10*3/uL (1.3-4.4); LYMPH % 7.6 % (27.0-41.0); MEAN CELL VOLUME 88.7 fl (80.0-94.0); MEAN CORPUSCULAR HGB 29.7 pg (27.0-31.0); MEAN CORPUSCULAR HGB CONC 33.4 g/dl (33.0-37.0); MEAN PLATELET VOLUME 10.2 fl (9.6-12.3); MONO # 0.5 10*3/uL (0.1-1.0); MONO % 5.9 % (3.0-9.0); NEUT # 7.4 10*3/uL (2.3-7.9); NEUT % 85.9 % (47.0-73.0); PLATELET COUNT AUTOMATED 164 10*3/uL (130-400); RED BLOOD COUNT 4.35 10*6/uL (4.50-5.90); RED CELL DISTRI WIDTH 13.5 % (0-14.5); WHITE BLOOD COUNT 8.6 10*3/uL (4.8-10.8)
[2018-04-24 07:37] LABS: BUN 21 mg/dl (7-24); CHLORIDE 104 mmol/L (98-107); POTASSIUM 4.1 mmol/L (3.5-5.1); SODIUM 139 mmol/L (136-145)
[2018-04-24 07:40] LABS: CREATININE 0.58 mg/dL (0.70-1.30)
[2018-04-24 08:00] VITALS: BP 146/82
[2018-04-24] MEDS ORDERED: PREDNISONE10 MG PO (12:36)
[2018-04-24] MEDS ORDERED: ZITHROMAX250 MG PO (12:36)
[2018-06-04] MEDS ORDERED: PREDNISONE10 MG PO (09:50)
[2018-06-04] MEDS ORDERED: ZITHROMAX500 MG PO (09:50)
[2018-07-01] MEDS ORDERED: ZITHROMAX250 MG PO (14:07)
[2018-07-01] MEDS ORDERED: PREDNISONE10 MG PO (14:07)
[2018-07-01] MEDS ORDERED: FUROSEMIDE40 MG PO (14:12)
== END 2018-04-24 14:30 | disposition home or self-care (01) | DRG 871 ==
LOC: ED 06:39 → 5E 08:22 → EDHOLD 08:22 → 5E 08:42
PROVIDERS: Emergency Medicine; Internal Medicine
DX: A41.9 Sepsis, unspecified organism (principal); J18.9 Pneumonia, unspecified organism; J96.21 Acute and chronic respiratory failure with hypoxia; I50.32 Chronic diastolic (congestive) heart failure; R91.1 Solitary pulmonary nodule; I71.2 Thoracic aortic aneurysm, without rupture; J43.9 Emphysema, unspecified; I11.0 Hypertensive heart disease with heart failure; I25.10 Atherosclerotic heart disease of native coronary artery without angina pectoris; E03.9 Hypothyroidism, unspecified; N40.1 Benign prostatic hyperplasia with lower urinary tract symptoms; J40 Bronchitis, not specified as acute or chronic; H40.9 Unspecified glaucoma; K21.9 Gastro-esophageal reflux disease without esophagitis; Z88.6 Allergy status to analgesic agent; Z88.2 Allergy status to sulfonamides; Z88.8 Allergy status to other drugs, medicaments and biological substances; Z91.041 Radiographic dye allergy status; Z79.899 Other long term (current) drug therapy; Z85.038 Personal history of other malignant neoplasm of large intestine; I25.2 Old myocardial infarction; Z87.01 Personal history of pneumonia (recurrent); Z87.891 Personal history of nicotine dependence; Z99.81 Dependence on supplemental oxygen; Z90.49 Acquired absence of other specified parts of digestive tract; Z90.79 Acquired absence of other genital organ(s); Z82.49 Family history of ischemic heart disease and other diseases of the circulatory system; Z83.3 Family history of diabetes mellitus; Z98.41 Cataract extraction status, right eye; Z95.5 Presence of coronary angioplasty implant and graft

== ENCOUNTER 2018-07-24 21:03 | Inpatient (IN) | payer OTHER ==
[~2018-07-24] VITALS: Ht 170.2 cm; Wt 73.7 kg
--- NOTE | ~2018-07-24 | PR ---
[place], [place] PROGRESS NOTE NAME: DAVID ZAVALA UNIT #: [id number] ROOM: [facility] DOCTOR: NAIMA ARRIAGA MD BIRTHDATE: [birth year] DOS: 07/26/2018 PULMONARY PROGRESS NOTE SUBJECTIVE: The patient has been noted comfortable at this time, sitting on the side of the bed. Partial reduction in symptoms of shortness of breath noted. Cough has been reported as mild. There were no symptoms of chest pain or wheezing. There is edema of the lower extremity still noted persistent with minimal improvement with the diuretics. OBJECTIVE: VITAL SIGNS: For the patient which were recorded showed normal temperature, respiratory rate 18, heart rate 80, blood pressure 132/73. The pulse oxygen saturation of the patient recorded as 92% saturation on nasal cannula. HEENT: Examination shows head was atraumatic. Eyes nonicterus. NECK: Supple. CARDIOVASCULAR: S1, S2 audible. LUNGS: Noted moderate reduction in breath sounds bilaterally. There were no crackles. ABDOMEN: Soft, nontender. Bowel sounds present. EXTREMITIES: Still noted with 2+ pitting edema. IMPRESSION: 1. The patient with acute congestive heart failure, cor pulmonale, diastolic dysfunction is very likely. 2. Acute exacerbation of chronic obstructive pulmonary disease. 3. Chronic blindness. 4. Chronic hypercapnic respiratory failure. PLAN OF THERAPY: Titrate oxygen supplementation, maintain pulse ox 92% or greater. Continuation of diuretic, bronchodilators, monitoring of the electrolytes with that. Other supportive therapy, plan of management, care plan and treatment. [place], [place] PROGRESS NOTE [facility]: [id number] UNIT #: [id number] ROOM: [facility] DOCTOR: NAIMA ARRIAGA MD BIRTHDATE: [birth year] NAIMA MCBRIDE MD CM:PNTRANS 1136 2314 NAIMA BUSTILLO MD 07/26/18 2315 interface
--- NOTE | ~2018-07-24 | EKG ---
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
--- NOTE | ~2018-07-24 | PR ---
[place], [place] PROGRESS NOTE NAME: DAVID ZAVALA UNIT #: [id number] ROOM: 403 DOCTOR: RAE BUSTILLO MD,NAIMA BIRTHDATE: [birth year] DOS: 07/29/2018 SUBJECTIVE: The patient was noted comfortable at this time without any acute distress. He has been using the BiPAP intermittently. Denies symptoms of chest pain this morning, using oxygen supplementation nasal cannula. OBJECTIVE: VITAL SIGNS: This morning, normal temperature, respiratory rate 20, heart rate 95, blood pressure ____. The pulse oxygen saturation 5 liters nasal cannula 95% saturation. HEAD, EYES, EARS, NOSE, AND THROAT: Head was atraumatic. Eyes nonicterus. NECK: Supple. CARDIOVASCULAR SYSTEM: S1, S2 is audible. LUNGS: ____ decreased breath sounds were noted in the lungs bilaterally. There were no crackles. ABDOMEN: Soft, nontender and flat. EXTREMITIES: No new change. IMPRESSION: 1. The patient who has been noted with gradual resolution and improvement in acute on chronic hypercapnic hypoxic respiratory failure slowly. 2. Severe debility as well. 3. End-stage chronic obstructive pulmonary disease history. PLAN OF MANAGEMENT: Continuation of the BiPAP oxygen supplementation, bronchodilators. Decrease the Solu-Medrol dose to 40 mg daily today. Other supportive, plan of therapy and care plan to be continued. NAIMA MCBRIDE MD CM:PNTRANS 1210 1258 NAIMA BUSTILLO MD 07/29/18 1259 interface
--- NOTE | ~2018-07-24 | PR ---
[place], [place] PROGRESS NOTE NAME: DAVID ZAVALA UNIT #: [id number] ROOM: [facility] DOCTOR: RAE BUSTILLO MD,NAIMA BIRTHDATE: [birth year] DOS: 07/27/2018 SUBJECTIVE: The patient has developed significant respiratory distress last evening, change in mental status and decreased responsiveness. He has been assessed and transferred to the Intensive Care Unit by the primary team. Arterial blood gas that was done, which has been noted with significant worsening of the hypercapnia with worsening of acute on chronic hypercapnic and hypoxic respiratory failure. The patient initially starting the BiPAP, later in the setting was changed to maximize a ventilatory status. The patient responded to treatment. He has been noted gradually more wakefulness with this morning, was seen sitting on the side of bed using the BiPAP, which has been continued overnight as well. He has not been reporting any symptoms of chest pain, fever, chills or any hemoptysis. Denies any pain of the lower extremity, still noted with edema of bilateral lower extremity. Denies symptoms of headache or diplopia, nausea, vomiting, diarrhea. Past family, social, surgical history remains unchanged since my consultation on this patient 2 days ago. Refer to that consultation for any details. OBJECTIVE: VITAL SIGNS: For the patient which were recorded shows a normal temperature. The respiratory rate of 16-18 noted 32 respiratory distress. Heart rate at that time noted 126, blood pressure ____. The blood pressure this morning was recorded at 148/86. Pulse oxygen saturation recorded with the BiPAP 35% oxygen 95% saturation. HEAD, EYES, EARS, NOSE, AND THROAT: Head was atraumatic. Eyes: No icterus. NECK: Supple. LUNGS: General reduction in the breath sounds noted in the lungs bilaterally with expiratory wheezing, no crackles. ABDOMEN: Soft, nontender. EXTREMITIES: The patient still noted mild to moderate edema of bilateral lower extremities. VISIBLE SKIN: Noted some scattered bruising area related to the past medication use of steroids. MUSCULOSKELETAL: Without any acute deformities. CENTRAL NERVOUS SYSTEM: Gross focal neurologic deficit. LABORATORY AND DIAGNOSTIC DATA: CBC today in lab: white count 8.3, hemoglobin 13.4, platelet count was normal. CMP this morning, BUN 29, creatinine was normal. Arterial blood gas, which were done at the time of respiratory distress and unresponsiveness, pH of 7.0, pCO2 of 100, pO2 74, 100% nonrebreather mask. Arterial blood gas that was done later on pH of 7.33, pCO2 of 57, pO2 of 350. CBC this morning, hemoglobin was 13.4, WBC count normal, platelet count 120,000 mildly decreased. BUN 29, creatinine normal this morning. The chest x-ray was also obtained to assess respiratory status. The patient does not show any evidence of acute pulmonary infiltration. IMPRESSION: 1. The patient with acute on chronic hypercapnia hypoxic respiratory failure. 2. History of chronic obstructive pulmonary disease. 3. Refuses use of noninvasive ventilator at home. [place], [place] PROGRESS NOTE NAME: DAVID ZAVALA UNIT #: [id number] ROOM: [facility] DOCTOR: NAIMA ARRIAGA MD BIRTHDATE: [birth year] 4. Cor pulmonale, congestive heart failure, diastolic dysfunction as well. PLAN OF MANAGEMENT: Continue steroids, bronchodilators, use of BiPAP most of the time. Obtain the arterial blood gas this morning to assess improvement in the mental status further. BiPAP setting of 06/07. All other supportive therapy, plan of management, care plan, DVT prophylaxis with the form of Lovenox. Other supportive plan of management, care plan with treatment changes will be ordered based on the progression of the illness. NAIMA MCBRIDE MD CM:PNTRANS [id number] NAIMA BUSTILLO MD 07/27/18 1345 interface
--- NOTE | ~2018-07-24 | CON ---
[place], [place] REPORT OF CONSULTATION [id number] UNIT #: [id number] ROOM: 403 DOCTOR: NAIMA ARRIAGA MD BIRTHDATE: [birth year] DOS: 07/25/2018 PULMONARY CONSULTATION, EVALUATION AND MANAGEMENT REASON FOR CONSULTATION: The patient has been asked for consultation for the assessment of acute exacerbation of COPD. HISTORY OF PRESENT ILLNESS: This is an 78-year-old elderly male with frequent hospitalization for respiratory failure, hypercapnia, and acute exacerbation of COPD. The patient has been admitted to the hospital last month, treated and discharged home. The noninvasive ventilator arrangements were made for this patient. The noninvasive ventilator was approved from the insurance, but the patient refused to have it delivered to his home. The patient has been admitted to the hospital, was complaining of symptoms of shortness of breath ongoing for the past few days. The symptoms are associated with cough, which are noted with intermittent sputum expectoration. The stated the sputum expectoration has been noted in giky-tc-xamisnie quantity ____ was also reporting progressive increased edema of lower extremities. Symptoms of wheezing was also reported with symptoms of chest pain, hemoptysis reported by the patient. The patient admitted to the hospital for further care at this time. REVIEW OF SYSTEMS: CONSTITUTIONAL SYMPTOMS: Fatigue and tiredness reported. No symptoms of fever or chills. EYES: Denies burning, redness, or tenderness. History of macular degeneration was also noted with legal blindness. EARS, NOSE, THROAT SYMPTOMS: No sore throat, hoarseness, otalgia, postnasal drainage, or epistaxis. CARDIOVASCULAR: Denies anginal pain, pain of the lower extremity, moderate progressive edema of the lower extremities were reported. GASTROINTESTINAL SYMPTOMS: Denies dysphagia, nausea, vomiting, diarrhea, abdominal pain, hematemesis, melena, or hematochezia. SKIN: No lesions or rashes. MUSCULOSKELETAL: Without acute deformities. CENTRAL NERVOUS SYSTEM: No dizziness, diplopia, syncopal episodes, or seizures. Remaining systems were reviewed. They were noted all negative. PAST MEDICAL HISTORY: 1. End-stage chronic obstructive pulmonary disease. 2. Chronic hypoxic and hypercapnic respiratory failure. 3. Acute congestive heart failure, diastolic dysfunction. 4. Nicotine dependence in the past reported. 5. Coronary artery disease. 6. Benign prostatic hypertrophy. 7. History of abdominal aortic aneurysm. 8. Legal blindness, macular degeneration, loss of vision. 9. Nonadherence with instruction of medical management. 10. Recurrent frequent hospitalization because of that. [place], [place] REPORT OF CONSULTATION NAME: DAVID ZAVALA UNIT #: [id number] ROOM: [facility] DOCTOR: NAIMA ARRIAGA MD BIRTHDATE: [birth year] PAST SURGICAL HISTORY: 1. Pilonidal cyst. 2. Appendectomy. 3. Endovascular stent placement for the management of abdominal aortic aneurysm. 4. Cardiac catheterization, coronary artery angioplasty, and stents insertion. 5. Therapeutic bronchoscopy. 6. Past intubation and mechanical ventilation. SOCIAL HISTORY: The patient is and lives at home. Denies alcohol use or illicit drug use. Tobacco use noted since teenager, pack or more of cigarettes per day, stated not smoking any cigarettes since 03/2018. 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 FAMILY HISTORY: Unknown by the patient. CURRENT MEDICATIONS: Administered this hospitalization use of DuoNeb, ____, vitamin D, Norvasc, metoprolol succinate, Mucinex, Solu-Medrol 60 mg b.i.d., Lovenox for DVT prophylaxis, levothyroxine, Lasix, Zithromax, Rocephin and other p.r.n. medications. The patient was also administered Lasix yesterday. DRUG ALLERGIES: NOTED ALLERGY: 1. IVP DYE. 2. CODEINE PHOSPHATE. 3. PERCOCET. 4. BACTRIM. 5. LEVAQUIN. PHYSICAL EXAMINATION: GENERAL: This is an 78-year-old white male currently sitting on side of bed without any distress. Height was noted of 5 feet 7 inches, weight 168 pounds, BMI 26. VITAL SIGNS: Normal temperature since admission, respiratory rate 18-20, heart rate 66-76, blood pressure 136/71-136/86. The pulse oxygen saturation on 6 liters canula 96% saturation. HEENT: Head was atraumatic. Eyes nonicterus. NECK: Supple. Decreased visual acuity. CARDIOVASCULAR: S1, S2 audible. LUNGS: Diffuse reduction in breath sounds. Expiratory wheezing without any crackles. ABDOMEN: Soft, nontender. EXTREMITIES: 2-3+ pitting edema in bilateral lower extremities with some brief cyanosis. VISIBLE SKIN: No lesions or rashes. MUSCULOSKELETAL: Without any acute deformities. Cranial nerves 2-12 intact without any focal deficit. LABORATORY DATA: Lactic acid is normal. PT, INR normal yesterday. CBC on 07/24/2018, WBC count normal, hemoglobin 13.5. CMP; BUN normal, creatinine was [place], [place] REPORT OF CONSULTATION NAME: DAVID ZAVALA UNIT #: [id number] ROOM: 403 DOCTOR: RAE BUSTILLO MD,NAIMA BIRTHDATE: [birth year] normal. Influenza A and B, nasal washing antigen negative. Chest x-ray showed severe hyperinflation changes of COPD without acute pulmonary infiltration, 1 view. CBC this morning essentially remains the same as yesterday. BMP this morning normal BUN and creatinine. IMPRESSION: 1. The patient currently admitted to the hospital with acute exacerbation of chronic obstructive pulmonary disease and evidence of congestive heart failure, diastolic dysfunction, possibility of cor pulmonale would be considered as well. 2. Noninvasive treatment stating non-use of the noninvasive ventilation, refuses to get that because he is blind. Could not put the headgear mask to use at home and could not assist the mask as she is elderly. 3. Past nicotine abuse stating no smoking cigarettes for the past about 4-5 months. PLAN OF TREATMENT: Continue diuretic therapy. The Solu-Medrol dose will be gradually decreased, changing the DuoNeb to albuterol sulfate for the medical management of COPD exacerbation. Other therapy, plan of management, care plan as well as additional treatment changes will be ordered based on progression of his illness. Continue diuretics. Monitor electrolytes and peripheral edema. If the edema remains persistent, consider obtaining ultrasound of bilateral lower extremities to exclude DVT. Thanks for allowing me to participate in the care of this patient. NAIMA MCBRIDE MD CM:CONSTR:REPORT OF CONSULTATION 1440 07/26/18 0121 interface
--- NOTE | ~2018-07-24 | PR ---
[place], [place] PROGRESS NOTE NAME: DAVID ZAVALA UNIT #: [id number] ROOM: [facility] DOCTOR: RAE BUSTILLO MD,NAIMA BIRTHDATE: [birth year] DOS: 07/28/2018 SUBJECTIVE: He has been currently sitting on his bed. He has used the BiPAP. The patient as ordered last night. This morning, using oxygen supplementation nasal cannula. He has not reported any symptoms of chest pain. Denies acute shortness of breath at rest. There were no symptoms of fever or chills, coughing, hemoptysis reported. OBJECTIVE: VITAL SIGNS: For the patient which has been recorded showed normal temperature, respiratory rate 17, heart rate 71, this morning. Pulse ox saturation with the BiPAP 97% nasal cannula was 94% saturation. HEENT: No new change. NECK: Supple. CARDIOVASCULAR: S1, S2 audible. LUNGS: Generalized decreased breath sounds. There were no wheeze or crackle this morning. ABDOMEN: Soft, flat, nontender. EXTREMITIES: No acute edema. LABORATORY DATA: The patient's arterial blood gas with a BiPAP 35% oxygen, pH of 7.44, pCO2 of 46, pO2 of 78. IMPRESSION: Progressive and gradual resolution of shlvt-ud-ieoxnlv hypercapnic hypoxic respiratory failure, improvement status changes, history of chronic legal blindness. Partial hearing loss. PLAN OF TREATMENT: No changes in the plan at this time in the management except the patient could be transferred to telemetry floor. Bronchodilator therapy plan to be continued. NAIMA MCBRIDE MD CM:PNTRANS 1121 [id number] NAIMA BUSTILLO MD 07/28/18 1251 interface
--- NOTE | ~2018-07-24 | PR ---
[place], [place] PROGRESS NOTE NAME: DAVID ZAVALA UNIT #: [id number] ROOM: 403 DOCTOR: RAE BUSTILLO MD,NAIMA BIRTHDATE: [birth year] DOS: 07/30/2018 SUBJECTIVE: The patient has been noted comfortable at this time, resting in the bed without any acute distress this morning. Shortness of breath symptoms have been resolving gradually. There were no symptoms of chest pain, fever or chills. OBJECTIVE: VITAL SIGNS: For the patient which were recorded showed the temperature noted as normal. The respiratory rate of 24, heart rate 72 and blood pressure 137/77. The pulse oxygen saturation on 5 liters at 96% saturation. HEENT: Examination shows head was atraumatic. Eyes nonicterus. CARDIOVASCULAR: S1, S2 is audible. LUNGS: Without any wheeze or crackles. Moderate decreased breath sounds bilaterally. ABDOMEN: Soft and nontender. EXTREMITIES: No acute edema. IMPRESSION: Resolving acute exacerbation of chronic obstructive pulmonary disease with acute tracheobronchitis, acute on chronic hypercapnic and hypoxemic respiratory failure as well. PLAN OF MANAGEMENT: No change in pulmonary standpoint. The patient could be considered for discharge as he accepted to use the noninvasive ventilator in the home setting on tapering dose of prednisone, whenever is necessary. library services dean has been informed about that. Primary care physician was notified. NAIMA MCBRIDE MD CM:PNTRANS 1126 1314 NAIMA BUSTILLO MD 07/30/18 1316 interface
--- NOTE | ~2018-07-24 | PR ---
[place], [place] PROGRESS NOTE NAME: DAVID ZAVALA UNIT #: [id number] ROOM: 403 DOCTOR: RAE BUSTILLO MD,NAIMA BIRTHDATE: [birth year] DOS: 07/31/2018 PULMONARY PROGRESS NOTE SUBJECTIVE: The patient has been noted comfortable at this time. He is planned for home discharge. Home noninvasive ventilator arrangement has been made by the professor of social work to be delivered to his home today. The patient will be able to use that. Denies any coughing or chest pain. OBJECTIVE: VITAL SIGNS: Normal temperature, respiratory rate 20, heart rate 72, blood pressure 134/84. Pulse oxygen saturation was recorded as 94 percent saturation on 5 liters nasal cannula at rest. HEENT: Shows head was atraumatic, eyes nonicterus, legal blindness. CARDIOVASCULAR: S1 and S2 audible. LUNGS: Without any wheeze or crackles. ABDOMEN: Soft, nontender. Bowel sounds present. EXTREMITIES: No acute edema. IMPRESSION: Stable respiratory status noted with resolving acute on chronic hypercapnic hypoxic respiratory failure and exacerbation of chronic obstructive pulmonary disease. PLAN OF TREATMENT: Abstinence from tobacco use. Tapering dose of prednisone. Use of noninvasive ventilator at night is recommended to prevent rehospitalization for exacerbation of COPD. NAIMA MCBRIDE MD CM:PNTRANS 1550 [id number] NAIMA BUSTILLO MD 08/01/18 0129 interface
--- NOTE | ~2018-07-24 | EKG ---
[place], [place] ELECTROCARDIOGRAM REPORT NAME: DAVID ZAVALA UNIT #: [id number] ROOM: 403 DOCTOR: BILL DRAFT REPORT BIRTHDATE: [birth year] [facility] Test Date: 2018-07-24 Test Time: 21:16:23 Pat Name: DAVID ZAVALA Department: Room: 403 Gender: M Research Chief Engineer: Emily Aponte : 1940 Requested By: YUAN RICHARD PA-C Order Number: [id number] Reading MD: Hardeep Ritchie MD Measurements Intervals [place] Rate: 77 P: 71 [place]: 171 QRS: 38 QRSD: 99 T: 15 QT: 357 QTc: 404 Interpretive Statements Sinus rhythm Poor precordial R-wave progression Baseline wander in lead(s) V6 Compared to ECG 05/30/2018 22:01:01 No significant change Electronically Signed On 07-25-2018 14:52:26 PST by Hardeep Ritchie MD CM:EKGRPT:ELECTROCARDIOGRAM REPORT 15 1452 YUAN RICHARD PA-C EPIPHANY DRAFT REPORT YUAN RICHARD PA-C
[~2018-07-24 21:03] MED LIST changes: +FUROSEMIDE40 MG PO; +ZITHROMAX500 MG PO
[2018-07-24 21:09] VITALS: BP 133/89
[2018-07-24 22:02] LABS: BASO % 0.6 % (0.0-1.0); EOS # 0.6 10*3/uL (0.0-0.4); HEMATOCRIT 39.1 % (42.0-52.0); HEMOGLOBIN 13.5 g/dl (14.0-18.0); LYMPH # 1.1 10*3/uL (1.3-4.4); LYMPH % 15.1 % (27.0-41.0); MEAN CELL VOLUME 88.9 fl (80.0-94.0); MEAN CORPUSCULAR HGB 30.7 pg (27.0-31.0); MEAN CORPUSCULAR HGB CONC 34.5 g/dl (33.0-37.0); MONO # 0.7 10*3/uL (0.1-1.0); MONO % 9.8 % (3.0-9.0); NEUT # 4.7 10*3/uL (2.3-7.9); NEUT % 65.4 % (47.0-73.0); PLATELET COUNT AUTOMATED 113 10*3/uL (130-400); RED CELL DISTRI WIDTH 15.8 % (0-14.5); WHITE BLOOD COUNT 7.1 10*3/uL (4.8-10.8)
[2018-07-24 22:18] LABS: ALBUMIN 3.5 gm/dl (3.1-4.5); ALKALINE PHOSPHATASE 79 U/L (45-117); BUN 15 mg/dl (7-24); CHLORIDE 103 mmol/L (98-107); CREATININE 0.79 mg/dL (0.70-1.30); SGOT/AST 16 IU/L (3-35); SGPT/ALT 20 U/L (12-78); SODIUM 137 mmol/L (136-145); TOTAL PROTEIN 6.6 gm/dL (6.4-8.2)
[2018-07-24 22:20] LABS: TROPONIN I < 0.015 ng/ml (<0.045)
[2018-07-24 23:00] VITALS: BP 140/77
--- NOTE | 2018-07-24 23:34 | NUR ---
CALLED DR. CRUZ AND NOTIFIED HIM HOME MEDICATIONS ARE RECONCILLED.
--- NOTE | 2018-07-24 23:45 | NUR ---
A 78, admitted to , under the services of LUZMARIA Soliz DO with a diagnosis of COPD EXACERBATION. Chief complaint is PT BROUGHT IN FROM HOME FOR SOB WAS 93% ON HOME OXYGEN @ 3L BUT NOT MOVING MUCH AIR PER EMS. UPON ARRIVAL PT AOX3, LUNGS DIMINISHED. STATES SOB STARTED COUPLE DAYS AGO PROGRESSIVELY GETTING WORSE. HE HAS HAD SOME NAUSEA. PT STATES HAD FLU SHOT IN JUNE AND THOUGHT HE MIGHT BE GETTING THE FLU. DENIES CHEST PAIN AND HEADACHE. PT HAS +3 PITTING EDEMA TO BLE MID CALF, LEFT WORSE THAN RIGHT. Patient arrived via bed from ER. Monitor applied. Initial assessment completed. Vital signs taken and recorded. LUZMARIA SOLIZ DO notified of admission to the unit. Orders received. See assessment for past medical history, medications and allergies. Patient and/or family oriented to unit. [facility] visitation policy reviewed. Clothing/patient valuable form completed. MARSHA TAVARES
[2018-07-25] VITALS: BP 136/71
--- NOTE | 2018-07-25 01:15 | NUR ---
PT REQUESTING SLEEPING PILL CALLED DR. CRUZ AND ORDER RECEIVED.
--- NOTE | 2018-07-25 01:25 | NUR ---
PT. DID NOT WANT AMBIEN SAID "I TAKE RESTORIL AT HOME WHEN I NEED TO." CALLED DR. CRZU AND ORDER RECEIVED.
--- NOTE | 2018-07-25 02:09 | NUR ---
PT. C/O IV ZITHROMAX MAKING HIM NAUSEATED. TURNED IV RATE DOWN AND GAVE PT. ZOFRAN IV FOR NAUSEA. FLUSHED IV LINE WITH SALINE AND PT. STATED ARM WITH IV FELT BETTER.
--- NOTE | 2018-07-25 02:40 | NUR ---
SPOKE WITH PATIENT AFTER [facility] CALLED AND WILL NOT PROFILE RESTORIL BECAUSE PT. ALLERGIC TO ATIVAN. SPOKE WITH DANIELANET ABOUT THIS RESTORIL BEING VERY SIMILAR TO ATIVAN AND PT. SAID "REALLY THEN I SHOULDN'T BE TAKING THAT I JUST DON'T WANT ANYTHING FOR SLEEP." WILL CLARIFY IF PT. EVEN TAKES RESTORIL AT HOME FOR SLEEP WITH AND PHARMACY IN AM.
[2018-07-25 05:58] LABS: HEMATOCRIT 40.1 % (42.0-52.0); HEMOGLOBIN 13.4 g/dl (14.0-18.0); MEAN CELL VOLUME 89.5 fl (80.0-94.0); MEAN CORPUSCULAR HGB 29.9 pg (27.0-31.0); MEAN CORPUSCULAR HGB CONC 33.4 g/dl (33.0-37.0); MEAN PLATELET VOLUME 10.1 fl (9.6-12.3); PLATELET COUNT AUTOMATED 99 10*3/uL (130-400); RED BLOOD COUNT 4.48 10*6/uL (4.50-5.90); RED CELL DISTRI WIDTH 15.6 % (0-14.5)
[2018-07-25 06:24] LABS: ATYPICAL LYMPHS 2 % (0-0); PLATELET SUFFICIENCY LOW (NORMAL); TOTAL CELLS COUNTED 100 #CELLS
[2018-07-25 06:28] LABS: BUN 17 mg/dl (7-24); CHLORIDE 100 mmol/L (98-107); CREATININE 0.79 mg/dL (0.70-1.30); POTASSIUM 4.2 mmol/L (3.5-5.1); SODIUM 137 mmol/L (136-145)
--- NOTE | 2018-07-25 06:45 | NUR ---
CALLED DR. MCBRIDE AND NO ANSWER
[2018-07-25 08:00] VITALS: BP 136/84
[2018-07-25 12:00] VITALS: BP 136/86
[2018-07-25 16:00] VITALS: BP 121/75
--- NOTE | 2018-07-25 19:50 | NUR ---
PT AWAKE AND RESTING IN BED. PT STATES THAT HE IS NOT HAVING ANY PAIN BUT THAT HE IS NAUSEOUS. PRN ZOFRAN ADMINISTERED. WILL CONTINUE TO MONITOR. BED LOW, CALL LIGHT WITHIN REACH.
[2018-07-25 20:00] VITALS: BP 113/83
--- NOTE | 2018-07-25 20:24 | NUR ---
PT STATES THAT THE PRN DOSE OF ZOFRAN HE RECIEVED WAS EFFECTIVE AND HE NO LONGER HAS ANY NAUSEA.
[2018-07-26] VITALS: BP 133/73; BP 146/90
--- NOTE | 2018-07-26 01:06 | NUR ---
NEW 24 GAUGE IV STARTED IN RIGHT FOREARM. SITE IS ASYMPTOMATIC.
[2018-07-26 06:35] LABS: HEMATOCRIT 39.7 % (42.0-52.0); HEMOGLOBIN 13.6 g/dl (14.0-18.0); LYMPH # 0.7 10*3/uL (1.3-4.4); LYMPH % 7.6 % (27.0-41.0); MEAN CELL VOLUME 89.2 fl (80.0-94.0); MEAN CORPUSCULAR HGB 30.6 pg (27.0-31.0); MEAN CORPUSCULAR HGB CONC 34.3 g/dl (33.0-37.0); MONO # 0.6 10*3/uL (0.1-1.0); NEUT # 7.9 10*3/uL (2.3-7.9); NEUT % 85.6 % (47.0-73.0); PLATELET COUNT AUTOMATED 123 10*3/uL (130-400); RED BLOOD COUNT 4.45 10*6/uL (4.50-5.90); RED CELL DISTRI WIDTH 15.6 % (0-14.5); WHITE BLOOD COUNT 9.3 10*3/uL (4.8-10.8)
[2018-07-26 06:55] LABS: BUN 26 mg/dl (7-24); CHLORIDE 101 mmol/L (98-107); CREATININE 0.96 mg/dL (0.70-1.30); POTASSIUM 3.8 mmol/L (3.5-5.1); SODIUM 139 mmol/L (136-145)
--- NOTE | 2018-07-26 09:00 | NUR ---
Cytogenetic Technician in to talk to patient. Patient states lives at home with . There are no steps in the home. Physician: oziel taylor [facility]acy: [facility] Home health services: none Patient's level of ADLs: MINIMAL ASSIST Patient has working utilities: all working DME: home oxygen, portable tanks Follow-up physician's appointment after d/c: will be made by hospitalist nurse director upon discharge Does patient want to access PORTAL?: no Discharge plan discussed with patient, patient lives at home with , he has home oxygen and portable tanks, patient requires assistance with adls, discussed with him a discharge plan including VNA, he declines any services at this time, case management will follow for any needs. BRIDGER CARDOZO
[2018-07-26 12:00] VITALS: BP 148/75
--- NOTE | 2018-07-26 14:43 | NUR ---
Patients , Komal Seymour called to check on Blake. I explained that he was struggling to breath, he requested a BiPap, and in the process his condition worsened and the Rapid Response team was called in. I also explained that the physicians thought it was best to transfer him to the ICCU to monitor him more closely.
[2018-07-26 14:48] LABS: ABG HCO3 31.6 mmol/l (22-26); ARTERIAL BLOOD GAS PO2 74.6 mmHg (80-90)
--- NOTE | 2018-07-26 14:50 | NUR ---
recieved in iccu after rapid response, pt in resp distress, cyanotic, minally responsive, bipap 14/8 at 100% placed
[2018-07-26 14:55] VITALS: BP 190/104
[2018-07-26 14:59] LABS: ARTERIAL BLOOD GAS PH 7.089 (7.35-7.45)
[2018-07-26 15:06] LABS: BASO % 0.2 % (0.0-1.0); EOS % 0.1 % (1.0-4.0); HEMATOCRIT 44.6 % (42.0-52.0); LYMPH # 1.4 10*3/uL (1.3-4.4); LYMPH % 9.1 % (27.0-41.0); MEAN CELL VOLUME 90.5 fl (80.0-94.0); MEAN CORPUSCULAR HGB 30.4 pg (27.0-31.0); MEAN CORPUSCULAR HGB CONC 33.6 g/dl (33.0-37.0); MEAN PLATELET VOLUME 9.7 fl (9.6-12.3); MONO # 0.9 10*3/uL (0.1-1.0); NEUT # 12.7 10*3/uL (2.3-7.9); NEUT % 83.5 % (47.0-73.0); NUCLEATED RED BLOOD CELL 0.1 % (0.0-0.0); RED BLOOD COUNT 4.93 10*6/uL (4.50-5.90); RED CELL DISTRI WIDTH 15.7 % (0-14.5); WHITE BLOOD COUNT 15.2 10*3/uL (4.8-10.8)
[2018-07-26 15:16] LABS: PLATELET COUNT AUTOMATED 170 10*3/uL (130-400)
--- NOTE | 2018-07-26 15:19 | NUR ---
calling dr webb with abgs pts distress has eased, resp now 22-26, tolerating bipap pox 95% on 100% bipap
[2018-07-26 15:24] LABS: ALBUMIN 4.1 gm/dl (3.1-4.5); ALKALINE PHOSPHATASE 95 U/L (45-117); BUN 30 mg/dl (7-24); CHLORIDE 99 mmol/L (98-107); PHOSPHOROUS 4.2 mg/dL (2.5-4.9); POTASSIUM 4.3 mmol/L (3.5-5.1); SGOT/AST 27 IU/L (3-35); SGPT/ALT 28 U/L (12-78); SODIUM 137 mmol/L (136-145); TOTAL PROTEIN 7.7 gm/dL (6.4-8.2)
--- NOTE | 2018-07-26 16:42 | NUR ---
FAMILY AT BEDSISE, PT ALERT AND ORIENTED, ANSWERS QUESTIONS, APPROPIATE " HOW DID I GET BACK HERE" PT WITH NO RECOLLECTION OF RESP DISTRESS EPISODE, DOES ADMIT TO USING HIS INHALER SERERAL TIME THIS MORNING
--- NOTE | 2018-07-26 17:00 | NUR ---
PT REFUSING LANDRY, STATING THAT HE HAS HAD 2 PROSTATE SURGERIES AND HAS NO TROUBLE BREATHING AND IS CONCERNED THAT DAMAGE WILL BE BEACUSE HIS SECOND SURGERY "UROLIFT" WAS A VERY NEW PROCEDURE
[2018-07-26 18:23] LABS: ABG BASE EXCESS 3.2 mmol/L (-2.0-2.0); ABG HCO3 30.1 mmol/l (22-26); ABG O2 SATURATION 99.9 % (95-97); ARTERIAL BLOOD GAS PCO2 57.5 mmHg (35-45); ARTERIAL BLOOD GAS PH 7.337 (7.35-7.45)
--- NOTE | 2018-07-26 18:35 | NUR ---
ABGS DRAWN , PT GIVEN BREAK ON NC5 L PT DID NOT TOLERATE FOR EVEN 5 MINUTES, AND PLACERIGHT BACK ON BIPAP GASES CALLED TO DR MCBRIDE, CONTINUE BIPAP TONIGHT,TITRATE O2
--- NOTE | 2018-07-26 19:41 | NUR ---
PATIENT ANXIOUS ON BIPAP, NEW ORDER FOR BENADRYL GIVEN, WILL MONITOR AND REASSESS.
--- NOTE | 2018-07-26 19:55 | NUR ---
24 HR chart check completed.
[2018-07-26 20:03] VITALS: BP 125/90
--- NOTE | 2018-07-26 20:40 | NUR ---
PATIENT STILL RESTLESS ON BIPAP, BENADRYL NOT EFFECTIVE.
--- NOTE | 2018-07-26 21:06 | NUR ---
PATIENT GIVEN VISTARIL TO HELP SLEEP WEARING THE BIPAP. WILL MONITOR AND REASSESS.
--- NOTE | 2018-07-26 23:33 | NUR ---
PATIENT RESTING ON BIPAP, NO SIGNS OF DISTRESS, VITAL SIGNS STABLE. VISTARIL EFFECTIVE.
[2018-07-27] VITALS: BP 130/72
[2018-07-27 03:58] VITALS: BP 135/75
[2018-07-27 04:47] LABS: BASO % 0.1 % (0.0-1.0); EOS % 0.1 % (1.0-4.0); HEMATOCRIT 39.3 % (42.0-52.0); HEMOGLOBIN 13.4 g/dl (14.0-18.0); LYMPH # 0.7 10*3/uL (1.3-4.4); LYMPH % 8.3 % (27.0-41.0); MEAN CELL VOLUME 89.1 fl (80.0-94.0); MEAN CORPUSCULAR HGB 30.4 pg (27.0-31.0); MEAN CORPUSCULAR HGB CONC 34.1 g/dl (33.0-37.0); MEAN PLATELET VOLUME 10.2 fl (9.6-12.3); MONO # 0.4 10*3/uL (0.1-1.0); MONO % 4.7 % (3.0-9.0); NEUT # 7.2 10*3/uL (2.3-7.9); NEUT % 86.3 % (47.0-73.0); PLATELET COUNT AUTOMATED 122 10*3/uL (130-400); RED BLOOD COUNT 4.41 10*6/uL (4.50-5.90); RED CELL DISTRI WIDTH 15.6 % (0-14.5); WHITE BLOOD COUNT 8.3 10*3/uL (4.8-10.8)
[2018-07-27 05:14] LABS: ALBUMIN 3.6 gm/dl (3.1-4.5); ALKALINE PHOSPHATASE 69 U/L (45-117); BUN 29 mg/dl (7-24); CHLORIDE 101 mmol/L (98-107); CREATININE 0.89 mg/dL (0.70-1.30); PHOSPHOROUS 2.5 mg/dL (2.5-4.9); POTASSIUM 3.7 mmol/L (3.5-5.1); SGOT/AST 12 IU/L (3-35); SGPT/ALT 21 U/L (12-78); SODIUM 140 mmol/L (136-145); TOTAL PROTEIN 6.5 gm/dL (6.4-8.2)
[2018-07-27 08:00] VITALS: BP 148/86
--- NOTE | 2018-07-27 10:33 | NUR ---
PT TOLERATING EATING BREAKFAST ON 4L NC WELL AT THIS TIME. WILL CONTINUE TO MONITOR PT.
[2018-07-27 12:00] VITALS: BP 146/76
--- NOTE | 2018-07-27 12:30 | NUR ---
ABG DRAWN BY RESP. THERAPIST. PT TOLERATED PROCEDURE WELL.
[2018-07-27 12:48] LABS: ABG BASE EXCESS 4.4 mmol/L (-2.0-2.0); ABG HCO3 29.6 mmol/l (22-26); ABG O2 SATURATION 94.4 % (95-97); ARTERIAL BLOOD GAS PCO2 47.6 mmHg (35-45); ARTERIAL BLOOD GAS PH 7.408 (7.35-7.45); ARTERIAL BLOOD GAS PO2 67.8 mmHg (80-90)
--- NOTE | 2018-07-27 15:13 | NUR ---
DR MCBRIDE NOTIFIED OF ABG RESULTS.
[2018-07-27 16:00] VITALS: BP 151/86
[2018-07-27 20:00] VITALS: BP 136/71
--- NOTE | 2018-07-27 20:00 | NUR ---
PATIENT SITTING UP IN BED, USING O2 NC. PATIENT STATES HE IS BREATHING BETTER, STILL SHORT OF BREATH, NOT WORKING HARD TO BREATH. PATIENT REQUESTING SOMETHING TO HELP HIM SLEEP LATER. WILL CONTINUE TO MONITOR.
--- NOTE | 2018-07-27 20:40 | NUR ---
24 HR chart check completed.
--- NOTE | 2018-07-27 21:03 | NUR ---
PATIENT GIVEN VISTARIL TO HELP RELAX WHILE ON BIPAP. WILL CONTINUE TO MONITOR AND REASSESS.
--- NOTE | 2018-07-27 23:17 | NUR ---
PATIENT STATED THE VISTARIL WASNT EFFECTIVE, STATED RESTORIL HELP HIM, CONTACTED DR. BROUSSARD, NEW ORDERS RECEIVED.
--- NOTE | 2018-07-27 23:43 | NUR ---
RESTORIL GIVEN. WILL REASSESS.
[2018-07-28] VITALS (7 sets, daily range): BP systolic 125–144; BP diastolic 66–89
[2018-07-28 05:39] LABS: BUN 35 mg/dl (7-24); CHLORIDE 101 mmol/L (98-107); CREATININE 0.86 mg/dL (0.70-1.30); PHOSPHOROUS 2.4 mg/dL (2.5-4.9); POTASSIUM 3.8 mmol/L (3.5-5.1); SODIUM 139 mmol/L (136-145)
[2018-07-28 05:49] LABS: BASO % 0.1 % (0.0-1.0); HEMATOCRIT 40.8 % (42.0-52.0); HEMOGLOBIN 13.5 g/dl (14.0-18.0); LYMPH # 0.8 10*3/uL (1.3-4.4); LYMPH % 10.5 % (27.0-41.0); MEAN CELL VOLUME 90.9 fl (80.0-94.0); MEAN CORPUSCULAR HGB 30.1 pg (27.0-31.0); MEAN CORPUSCULAR HGB CONC 33.1 g/dl (33.0-37.0); MEAN PLATELET VOLUME 10.3 fl (9.6-12.3); MONO # 0.4 10*3/uL (0.1-1.0); MONO % 4.6 % (3.0-9.0); NEUT # 6.7 10*3/uL (2.3-7.9); NEUT % 84.2 % (47.0-73.0); PLATELET COUNT AUTOMATED 128 10*3/uL (130-400); RED BLOOD COUNT 4.49 10*6/uL (4.50-5.90); RED CELL DISTRI WIDTH 15.6 % (0-14.5)
[2018-07-28 08:40] LABS: ABG BASE EXCESS 6.4 mmol/L (-2.0-2.0); ABG HCO3 31.3 mmol/l (22-26); ABG O2 SATURATION 97.5 % (95-97); ARTERIAL BLOOD GAS PCO2 46.4 mmHg (35-45); ARTERIAL BLOOD GAS PH 7.441 (7.35-7.45); ARTERIAL BLOOD GAS PO2 78.1 mmHg (80-90)
--- NOTE | 2018-07-28 09:25 | NUR ---
PT TAKEN OFF BIPAP AT THIS TIME
--- NOTE | 2018-07-28 10:11 | NUR ---
PT TOLERATED BIPAP ALL NIGHT. HE IS NOW OFF EATING BREAKFAST WITH NO C/O ANY. DR MCBRIDE IN AND STATED THAT HE HAS IMPROVED AND CAN BE MADE IMC WITH DR MARADIAGA HAS DONE. ALSO UPDATED ON PLAN OF CARE.
--- NOTE | 2018-07-28 11:10 | NUR ---
case management visits with patient, discussed with him a short term longterm for rehab prior to going back home, patient declined, stated he was going back home, also discussed with him VNA and he was receptive to this only if there wasn't an aid come to his home, given choice of companies he chose [facility], will send an order to [facility] for when patient is medically stable for discharge
--- NOTE | 2018-07-28 11:27 | NUR ---
Occupational Therapy evaluation completed in ICCU with full eval to follow. Precautions include O2 dependency, ICCU,IV UE,SOB w/ exertion, low complexity level 30129 via chart review, testing and evaluation. Recommend OT per pOC and home with with home health as indicated upon d/c. Patient insists that he is returning home upon d/c. Patient informed OTR that doctor requests that patient use a bipap machine at home but patient says that d/t his blindness, he could not get one. OTR informed nursing that patient was interested in using a bipap at home if it was easy to use. Thank you. Kiera Glaser OTR/l
--- NOTE | 2018-07-28 19:15 | NUR ---
PHYSICAL THERAPY PAtient sleeping. thank you for this referral. Clari Day,PT
--- NOTE | 2018-07-28 22:07 | NUR ---
PRN VISTARIL GIVEN. WILL MONITOR FOR EFFECTIVENSS.
--- NOTE | 2018-07-28 23:05 | NUR ---
RE-EVALUATED AT THIS TIME. PRN VISTARIL NOT EFFECTIVE PER PT.
[2018-07-29] VITALS: BP 128/76
--- NOTE | 2018-07-29 00:59 | NUR ---
PRN VISTARIL GIVEN FOR COMPLAINTS OF STILL NOT BEING ABLE TO SLEEP. WILL MONITOR FOR EFFECTIVENESS.
--- NOTE | 2018-07-29 01:45 | NUR ---
24HR CHART CHECK COMPLETED.
[2018-07-29 08:00] VITALS: BP 138/70
--- NOTE | 2018-07-29 09:00 | NUR ---
case management visits with patient, patient states he will be going home when able, patient will have [facility] nursing see him when medically stable for discharge, patient denies any other needs at this time
[2018-07-29 12:00] VITALS: BP 158/84
--- NOTE | 2018-07-29 14:59 | NUR ---
OT NOTE Attempted to see pt this P.M. for OT session and upon arrival pt was supine in bed asleep with BIPAP on. Did not arouse at this time. Will check back at a later time/date. MIMI Avila/Erasmo
--- NOTE | 2018-07-29 15:17 | NUR ---
ASSUMED CARE OF PATIENT AT THIS TIME. PATIENT IS ASLEEP IN BED WITH BIPAP IN USE. NO S/S OF DISTRESS NOTED. WILL MONITOR. CALL LIGHT LEFT IN REACH.
[2018-07-29 16:00] VITALS: BP 143/82
--- NOTE | 2018-07-29 17:00 | NUR ---
PATIENT TAKEN OFF BIPAP AT THIS TIME AND PLACED ON 5L NC SO THAT HE CAN GET SET UP FOR DINNER. RESPIRATORY NOTIFIED. WILL MONITOR. CALL LIGHT LEFT IN REACH.
[2018-07-29 20:00] VITALS: BP 137/85
--- NOTE | 2018-07-29 20:21 | NUR ---
NOTIFIED OF PATIENT'S REQUEST FOR BENADRYL TO HELP HIM SLEEP. PATIENT HAD 25 MG IV BENADRYL LAST NIGHT AROUND 1940. PT STATES IT WAS EFFECTIVE. RN OFFERED PRN VISTARIL, BUT PT REFUSING STATING THAT IT DOESN'T WORK WELL. STATES SHE WILL REVIEW CHART AND PLACE ORDERS NEEDED.
--- NOTE | 2018-07-29 21:11 | NUR ---
PATIENT AGREED TO TAKE PO VISTARIL PER PRN ORDER INSTEAD OF REQUESTED BENADRYL FOR C/O INSOMNIA. PATIENT ASKED RN TO CHECK BSG-- 192 AT THIS TIME. PATIENT STATES "THAT'S REALLY HIGH, GET ME SOME INSULIN." RN QUESTIONED DIABETIC STATUS. PATIENT IS NOT A DIABETIC BUT IS ON IV STEROIDS. NOTIFIED OF PATIENT'S REQUEST.
[2018-07-30] VITALS: BP 160/87
--- NOTE | 2018-07-30 06:58 | NUR ---
DAVID ZAVALA [id number] Please refer to the physician's history and physical for past medical history, comorbid conditions, and allergies. Diagnosis: COPD EXACERBATION Babar Score: 13,MODERATE RISK WOUND DESCRIPTIONS: Upon assessment skin is intact to right and left ankles. The were a concern to the right lateral ankle per documentation. Surface the patient is resting on: Isoflex SKIN PREVENTION RECOMMENDATION: 1. Pressure redistribution support surface as appropriate 2. Elevate heels 3. Remove boots/TEDS every shift and reapply 4. Head of bed 30 degrees as tolerated 5. Assess nutrition and hydration 6. Manage moisture 7. Avoid the use of containment devices while in bed 8. Use absorptive products on surfaces limit layers of linens on bed 9. Turn and reposition every 1-2 hours in bed and every 1 hour in chair as tolerated 10. Weight shifts every 15 minutes while up in chair 11. Offloading with pillows or device to keep heels elevated off bed 12. Monitor skin at least every shift 13. Inspect under medical devices twice a day
[2018-07-30 08:00] VITALS: BP 137/77
--- NOTE | 2018-07-30 08:25 | NUR ---
OT NOTE Pt was seen this A.m. 1:1 for 15 minute OT session. Upon arrival pt was sitting upright on the EOB. Pt identified by name and , pt presented to therapy with continous 5L-O2 via NC which he remained on throughout entire session. Pt completed sit to stand transfer from bed level with CGA followed by functional mobility into the bathroom with CGA BUTTER MELTER with occasional Nery due to presenting with "staggered" gait. There pt transferred on/off standard commode with CGA and verbal prompts for use of grab bar. Functional mobility then compleated back to EOB with CGA BUTTER MELTER and verbal prompts for improving his breathing technique. Pt was left sitting upright on the EOB with call light in hand and phone in reach. Continue with rec D/C plan to home with . MIMI Avila/Erasmo
--- NOTE | 2018-07-30 09:00 | NUR ---
case management visits with patient, patient will be going home when able and have [facility], patient will have the 30 day copd program offered by [facility]. no other needs at this time
[2018-07-30 12:00] VITALS: BP 134/70
[2018-07-30 16:00] VITALS: BP 125/73
[2018-07-30 20:00] VITALS: BP 151/83
[2018-07-31] VITALS: BP 138/84
--- NOTE | 2018-07-31 01:56 | NUR ---
Took patient off NIV at his request. Placed him back onto his 5lnc.
[2018-07-31 06:43] LABS: HEMATOCRIT 42.6 % (42.0-52.0); HEMOGLOBIN 14.3 g/dl (14.0-18.0); MEAN CELL VOLUME 89.7 fl (80.0-94.0); MEAN CORPUSCULAR HGB 30.1 pg (27.0-31.0); MEAN CORPUSCULAR HGB CONC 33.6 g/dl (33.0-37.0); MEAN PLATELET VOLUME 10.4 fl (9.6-12.3); PLATELET COUNT AUTOMATED 136 10*3/uL (130-400); RED BLOOD COUNT 4.75 10*6/uL (4.50-5.90); RED CELL DISTRI WIDTH 15.8 % (0-14.5); WHITE BLOOD COUNT 9.4 10*3/uL (4.8-10.8)
[2018-07-31 06:51] LABS: CREATININE 0.86 mg/dL (0.70-1.30)
[2018-07-31 07:09] LABS: PLATELET SUFFICIENCY NORMAL (NORMAL); TOTAL CELLS COUNTED 100 #CELLS
[2018-07-31 08:00] VITALS: BP 140/66
--- NOTE | 2018-07-31 08:05 | NUR ---
PT NOT ON BIPAP AT THIS TIME
[2018-07-31] MEDS ORDERED: AVPAK AZITHROM250 MG PO (09:40)
[2018-07-31] MEDS ORDERED: PREDNISONE10 MG PO (09:40)
[2018-07-31 12:00] VITALS: BP 134/84
--- NOTE | 2018-07-31 12:44 | NUR ---
MSDIS Discharge instructions reviewed with patient/family. Patient receptive and verbalizes understanding. Follow-up care arranged. Written instructions given to patient/family. TALIA BUCHANAN
[2018-07-31] MEDS ORDERED: VISTARIL25 M2 PO (12:58)
--- NOTE | 2018-08-02 17:00 | NUR ---
OCCUPATIONAL THERAPY CO-SIGN I approve of the Occupational Therapy notes written above. JAMI HARP OTR/Erasmo
[2018-09-17] MEDS ORDERED: DOXYCYCLINE100 M3 PO (11:28)
[2018-09-17] MEDS ORDERED: PREDNISONE10 MG PO (11:28)
[2018-09-17] MEDS ORDERED: FUROSEMIDE40 MG PO (11:28)
[2018-09-17] MEDS ORDERED: K-TAB10 MEQ PO (11:34)
[2018-09-17] MEDS ORDERED: AUGMENTIN 875-875 MG PO (11:34)
== END 2018-07-31 12:44 | disposition home health service (06) | DRG 291 ==
LOC: ED 21:03 → 4E 22:11 → ICCU 22:11 → EDHOLD 22:11 → 4E 22:36 → ICCU 07-26 14:45 → 4E 07-28 16:19
PROVIDERS: Internal Medicine; Internal Medicine Critical Care Medicine; Internal Medicine Nephrology; Physician Assistant; Student in an Organized Health Care Education/Training Program; ADMIT Internal Medicine
PROC: 5A09357 Assistance with Respiratory Ventilation, Less than 24 Consecutive Hours, Continuous Positive Airway Pressure (ICD-10-PCS; principal; 2018-07-26)
PROC: 5A09357 Assistance with Respiratory Ventilation, Less than 24 Consecutive Hours, Continuous Positive Airway Pressure (ICD-10-PCS; 2018-07-27)
PROC: 5A09357 Assistance with Respiratory Ventilation, Less than 24 Consecutive Hours, Continuous Positive Airway Pressure (ICD-10-PCS; 2018-07-28)
PROC: 5A09357 Assistance with Respiratory Ventilation, Less than 24 Consecutive Hours, Continuous Positive Airway Pressure (ICD-10-PCS; 2018-07-29)
PROC: 5A09357 Assistance with Respiratory Ventilation, Less than 24 Consecutive Hours, Continuous Positive Airway Pressure (ICD-10-PCS; 2018-07-31)
DX: I11.0 Hypertensive heart disease with heart failure (principal); J96.22 Acute and chronic respiratory failure with hypercapnia; J96.21 Acute and chronic respiratory failure with hypoxia; J44.1 Chronic obstructive pulmonary disease with (acute) exacerbation; E44.0 Moderate protein-calorie malnutrition; I50.33 Acute on chronic diastolic (congestive) heart failure; D69.6 Thrombocytopenia, unspecified; I25.10 Atherosclerotic heart disease of native coronary artery without angina pectoris; K21.9 Gastro-esophageal reflux disease without esophagitis; E03.9 Hypothyroidism, unspecified; D64.9 Anemia, unspecified; H40.9 Unspecified glaucoma; R91.1 Solitary pulmonary nodule; Z91.041 Radiographic dye allergy status; Z88.5 Allergy status to narcotic agent; Z98.41 Cataract extraction status, right eye; Z99.81 Dependence on supplemental oxygen; Z91.013 Allergy to seafood; Z87.891 Personal history of nicotine dependence; Z83.3 Family history of diabetes mellitus; Z82.49 Family history of ischemic heart disease and other diseases of the circulatory system; Z90.49 Acquired absence of other specified parts of digestive tract; M62.542 Muscle wasting and atrophy, not elsewhere classified, left hand; N40.0 Benign prostatic hyperplasia without lower urinary tract symptoms

== ENCOUNTER 2018-08-03 15:36 | Emergency (ER) | payer OTHER ==
[~2018-08-03] VITALS: Ht 170.1 cm; Wt 71.7 kg
--- NOTE | ~2018-08-03 | EKG ---
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
[~2018-08-03 15:36] MED LIST changes: +AVPAK AZITHROM250 MG PO; +VISTARIL25 M2 PO
[2018-08-03 15:38] VITALS: BP 161/82
[2018-08-03 16:16] LABS: HEMATOCRIT 40.9 % (42.0-52.0); HEMOGLOBIN 13.9 g/dl (14.0-18.0); MEAN CELL VOLUME 92.1 fl (80.0-94.0); MEAN CORPUSCULAR HGB 31.3 pg (27.0-31.0); MEAN PLATELET VOLUME 9.6 fl (9.6-12.3); PLATELET COUNT AUTOMATED 131 10*3/uL (130-400); RED BLOOD COUNT 4.44 10*6/uL (4.50-5.90); RED CELL DISTRI WIDTH 15.9 % (0-14.5); WHITE BLOOD COUNT 10.9 10*3/uL (4.8-10.8)
[2018-08-03 16:27] LABS: ACT PARTIAL THROMBO TIME 23.3 SECONDS (20.8-31.5)
[2018-08-03 16:32] LABS: ALBUMIN 3.3 gm/dl (3.1-4.5); ALKALINE PHOSPHATASE 69 U/L (45-117); BUN 21 mg/dl (7-24); CHLORIDE 103 mmol/L (98-107); LIPASE 209 U/L (73-393); POTASSIUM 4.4 mmol/L (3.5-5.1); SGOT/AST 16 IU/L (3-35); SGPT/ALT 25 U/L (12-78); SODIUM 137 mmol/L (136-145); TOTAL PROTEIN 6.2 gm/dL (6.4-8.2); TROPONIN I 0.016 ng/ml (<0.045)
[2018-08-03 16:42] LABS: TOTAL CELLS COUNTED 100 #CELLS
[2018-08-03 16:43] LABS: PLATELET SUFFICIENCY NORMAL (NORMAL)
[2018-09-17] MEDS ORDERED: DOXYCYCLINE100 M3 PO (11:28)
[2018-09-17] MEDS ORDERED: FUROSEMIDE40 MG PO (11:28)
[2018-09-17] MEDS ORDERED: PREDNISONE10 MG PO (11:28)
[2018-09-17] MEDS ORDERED: K-TAB10 MEQ PO (11:34)
[2018-09-17] MEDS ORDERED: AUGMENTIN 875-875 MG PO (11:34)
== END 2018-08-03 17:44 | disposition home or self-care (01) ==
LOC: ED 15:36
PROVIDERS: Emergency Medicine
DX: J44.9 Chronic obstructive pulmonary disease, unspecified (principal); I25.10 Atherosclerotic heart disease of native coronary artery without angina pectoris; K21.9 Gastro-esophageal reflux disease without esophagitis; E03.9 Hypothyroidism, unspecified; I11.0 Hypertensive heart disease with heart failure; I50.32 Chronic diastolic (congestive) heart failure; Z88.8 Allergy status to other drugs, medicaments and biological substances; Z88.6 Allergy status to analgesic agent; Z91.041 Radiographic dye allergy status; Z88.2 Allergy status to sulfonamides; Z91.013 Allergy to seafood; Z79.899 Other long term (current) drug therapy; Z87.891 Personal history of nicotine dependence

== ENCOUNTER 2018-08-11 05:52 | Inpatient (IN) | payer OTHER ==
[~2018-08-11] VITALS: Ht 170.1 cm; Wt 73.6 kg
--- NOTE | ~2018-08-11 | PR ---
[place], [place] PROGRESS NOTE NAME: [facility]A [facility] [id number] UNIT #: [id number] ROOM: 410 DOCTOR: RAE BUSTILLO MD,NAIMA BIRTHDATE: [birth year] DOS: 08/14/2018 PULMONARY PROGRESS NOTE SUBJECTIVE: The patient noted comfortable at this time, resting on the bed, using his BiPAP. He has not been reported with symptoms of chest pain. Shortness of breath has been noted with gradual resolution. Denies any pain of the lower extremities. OBJECTIVE: VITAL SIGNS: Which have been recorded show the temperature noted as normal, respiratory rate 20, heart rate 77, blood pressure 160/90-150/87. The pulse oxygen saturation on 4 liters is 94% saturation. HEENT: No acute change. NECK: Supple. CARDIOVASCULAR: S1 and S2 audible. LUNGS: Noted without any crackles. Mild expiratory wheezing with moderate reduction in breath sounds bilaterally. ABDOMEN: Soft, nontender. Bowel sounds present. EXTREMITIES: No acute change. IMPRESSION: The patient with resolving bvabd-tw-guscogz hypoxic and hypercapnic respiratory failure, exacerbation of chronic obstructive pulmonary disease. PLAN OF MANAGEMENT: Continuation of BiPAP, oxygen supplementation. Other therapy as in progress. No additional change in treatment needs to be done today. Gradual reduction of Solu-Medrol based on the improvement in the symptoms. NAIMA MCBRIDE MD CM:PNTRANS [id number] NAIMA BUSTILLO MD 08/14/182022 interface
--- NOTE | ~2018-08-11 | PR ---
[place], [place] PROGRESS NOTE NAME: DAVID ZAVALA UNIT #: [id number] ROOM: 410 DOCTOR: RAE BUSTILLO MD,NAIMA BIRTHDATE: [birth year] DOS: 08/13/2018 PULMONARY PROGRESS NOTE SUBJECTIVE: The patient has been complaining of symptoms of shortness of breath that was increased in the last 24 hours. Denies symptoms of chest pain. Cough has been noted mild to moderate, without any sputum expectoration. Denies symptoms of wheezing. Used BiPAP last night. This morning, using oxygen supplementation via nasal cannula. OBJECTIVE: VITAL SIGNS: Normal temperature, respiratory rate of 20, heart rate 76, blood pressure 150/90. The pulse oxygen saturation recorded as 94% saturation on 4 liters nasal cannula, on BiPAP as 98% saturation earlier. HEENT: No acute change. CARDIOVASCULAR: S1 and S2 audible. LUNGS: General reduction in breath sounds with olcb-ze-rqoxbmjh expiratory wheezing. There are no crackles. ABDOMEN: Soft, nontender. Bowel sounds present. EXTREMITIES: No acute change. LABORATORY DATA: CBC today: Normal WBC count. BMP this morning: Normal BUN and creatinine. IMPRESSION: The patient has been currently noted with ongoing acute exacerbation of chronic obstructive pulmonary disease, boegg-xd-lzixxbf hypercapnic respiratory failure. Acute bronchitis. Frequent hospitalizations. PLAN OF MANAGEMENT: Continuation of the BiPAP with oxygen supplementation, intermittent use. Bronchodilators. Continuation of corticosteroids. No changes in treatment need to be done today. Continue observation with current medical management. NAIMA MCBRIDE MD CM:PNTRANS [id number] NAIMA BUSTILLO MD 08/13/18 1204 interface
--- NOTE | ~2018-08-11 | PR ---
[place], [place] PROGRESS NOTE [id number] UNIT #: [id number] ROOM: 410 DOCTOR: RAE BUSTILLO MD,NAIMA BIRTHDATE: [birth year] DOS: 08/15/2018 PULMONARY PROGRESS NOTE SUBJECTIVE: The patient was noted comfortable at this time without any acute dyspnea, shortness of breath, coughing, wheezing, or chest pain reported. He has used his own noninvasive ventilator for 6-7 hours in the past 2 nights. He denies symptoms of fever or chills. OBJECTIVE: VITAL SIGNS: Normal temperature, respiratory rate is 21, heart rate is 76, and blood pressure 125/82 this afternoon. Pulse ox saturation on 4 liters nasal cannula is 96% saturation at rest. HEENT: On examination, no acute change. NECK: Supple. CARDIOVASCULAR SYSTEM: S1, S2 audible. LUNGS: Without any crackles. There was no wheezing. ABDOMEN: Soft, nontender. Bowel sounds present. EXTREMITIES: No acute edema. IMPRESSION: Resolving acute exacerbation of chronic obstructive pulmonary disease, blbyz-zm-wiaxhsu hypercapnic hypoxic respiratory failure. PLAN OF TREATMENT: Discharge the patient to home setting, using noninvasive ventilator, tapering prednisone, antibiotics, and other medical management. Abstinence of tobacco use continued to be encouraged. NAIMA MCBRIDE MD CM:PNTRANS 1605 [id number] NAIMA BUSTILLO MD 08/16/18 0059 interface
--- NOTE | ~2018-08-11 | PR ---
[place], [place] PROGRESS NOTE [facility] [id number] UNIT #: [id number] ROOM: 410 DOCTOR: NAIMA ARRIAGA MD BIRTHDATE: [birth year] DOS: 08/12/2018 PULMONARY PROGRESS NOTE SUBJECTIVE: The patient is still complaining of symptoms of shortness of breath, noted edema of the lower extremity, mmgo-ba-pmejohjt cough without any sputum expectoration, wheezing is also reported. There are no symptoms of chest pain. He had used the BiPAP, which was ordered on him yesterday. This morning, he is using oxygen supplementation via nasal cannula. OBJECTIVE: VITAL SIGNS: Normal temperature, respiratory rate 16, heart rate 62, blood pressure 148/94. The pulse oxygen saturation on 40% BiPAP is 94% and on 5 liters is 94% saturation. HEENT: No acute change. NECK: Supple. CARDIOVASCULAR: S1 and S2 audible. LUNGS: Moderate decreased breath sounds with expiratory wheezing. No crackles. ABDOMEN: Soft, nontender. EXTREMITIES: 2+ pitting edema. LABORATORY DATA: Platelet count 112,000, mildly decreased. BMP: Normal BUN and creatinine. Other electrolytes are normal. IMPRESSION: 1. The patient has been currently treated for the medical management of acute chronic obstructive pulmonary disease exacerbation with acute congestive heart failure. 2. Chronic metabolic alkalosis, secondary to hypercarbia. 3. Mild thrombocytopenia. PLAN OF THERAPY: Continuation of bronchodilators, oxygen supplementation, supplementation of electrolytes and diuretics. Close monitoring of intake and output. [place], [place] PROGRESS NOTE NAME: [facility] [id number] UNIT #: [id number] ROOM: 410 DOCTOR: NAIMA ARRIAGA MD BIRTHDATE: [birth year] NAIMA MCBRIDE MD CM:PNTRANS 6 [phone] NAIMA BUSTILLO MD 08/12/18 105 interface
--- NOTE | ~2018-08-11 | CON ---
[place], [place] REPORT OF CONSULTATION [id number] UNIT #: [id number] ROOM: 410 DOCTOR: RAE BUSTILLO MDNAIMA BIRTHDATE: [birth year] DOS: 08/11/2018 PULMONARY CONSULTATION, EVALUATION AND MANAGEMENT CONSULTATION REQUESTED BY: Hospitalist Service. REASON FOR CONSULTATION: For assessment of acute exacerbation of COPD. HISTORY OF PRESENT ILLNESS: The patient is an 78-year-old white male patient with frequent hospitalization. Last time the patient was discharged, he has been set up with the noninvasive ventilator for long-term management of hypercarbia with chronic hypoxic respiratory failure with frequent hospitalization and COPD. The patient stated that he has been trying to make some changes on the ventilator at home and he has not been able to use the current noninvasive ventilator with the mask. The mask is also needed to be changed. He has been admitted to the hospital under the care of Hospitalist Service this morning. The patient came into the hospital by the EMS because of symptoms of increased shortness of breath. The shortness of breath has been noted worsened recently. He denies any symptoms of chest pain. The patient recently finished tapering prednisone. He was seen in the Emergency Room a few days ago as well. The patient does have symptoms of mild cough without any sputum expectoration. Denies symptoms of fever or chills. Wheezing is reported at times. There are no symptoms of hemoptysis. He also reported increased edema of the lower extremities in the last 2-3 days. He has been receiving diuretic Lasix 40 mg b.i.d., which has been recently used by the patient, usually uses 40 mg daily. REVIEW OF SYSTEMS: CONSTITUTIONAL: Fatigue and tiredness noted, without any symptoms of fever or chills. EYES: Denies any new changes. Noted with macular degeneration, decreased visual acuity. There is no pain, discharge or redness. EARS, NOSE AND THROAT: Denies sore throat, hoarseness, otalgia, or postnasal drainage. CARDIOVASCULAR: Denied palpitation or anginal pain. Reported the edema of lower extremities increased in the last couple of days. There was no pain in the lower extremities. GASTROINTESTINAL: Denies dysphagia, nausea, or abnormal weight loss. GENITOURINARY: Denies symptoms of hematemesis or melena. SKIN: Denies lesions or rashes, except dryness of the skin. MUSCULOSKELETAL: Denies any pain or deformities. CENTRAL NERVOUS SYSTEM: Denies diplopia, syncopal episode, seizures, or tingling sensation of the extremities. Remaining systems were reviewed, they were noted all negative. PAST MEDICAL HISTORY, SURGICAL HISTORY, SOCIAL HISTORY, FAMILY HISTORY: All reviewed again and updated, noted to be same since 07/25/2018 consultation. Refer to that document for further information if necessary; available in [place]. [place], [place] REPORT OF CONSULTATION NAME: DAVID ZAVALA UNIT #: [id number] ROOM: [facility] DOCTOR: RAE BUSTILLO MD,NAIMA BIRTHDATE: [birth year] CURRENT MEDICATIONS: Which have been started on this admission are vitamin D, Norvasc, levothyroxine, latanoprost eye drops, metoprolol succinate, Lasix 40 mg p.o. b.i.d., Solu-Medrol 40 mg q. 8 hours, hydroxyzine, Mucinex, albuterol sulfate, and other p.r.n. medications administration. ALLERGIES: Reported as: 1. IVP DYE. 2. FISH. 3. CODEINE. 4. PERCOCET. 5. BACTRIM. 6. LEVOFLOXACIN. PHYSICAL EXAMINATION: GENERAL: This is an 78-year-old white male patient, currently noted awake and alert this morning of assessment. The patient's height was recorded by the nursing staff on this current admission with a height of 5 feet 7 inches, weight of 173 pounds. VITAL SIGNS: Normal temperature, respiratory rate of 18-16, heart rate of 79-84, blood pressure 110/71 to 117/67. Pulse oxygen saturation on 5 liters nasal cannula is 98% saturation. HEENT: Head was atraumatic. Eyes nonicterus. Decreased visual acuity secondary to macular degeneration. Oral mucosa was moist. CARDIOVASCULAR: S1 and S2 audible. LUNGS: Nxqe-wn-hyajmlki decreased breath sounds, without any crackles. Scattered expiratory wheezing. ABDOMEN: Soft, nontender. Bowel sounds present. EXTREMITIES: Noted with 2+ to 3+ pitting edema of the bilateral lower extremities. Dryness of the skin was noted. VISIBLE SKIN: Otherwise, no lesions or rashes. MUSCULOSKELETAL: Without acute deformities. CENTRAL NERVOUS SYSTEM: Cranial nerves 2 through 12 intact. LABORATORY DATA: CBC this morning: Platelet count 121,000, otherwise normal CBC. CMP on admission: BUN normal, creatinine normal. PT and PTT were noted as normal this morning. Arterial blood gas on 5 liters, pH is 7.40, pCO2 of 44, pO2 of 77.5. IMAGING STUDIES: Ultrasound of the bilateral lower extremities was also completed emergency and it does not show any evidence of deep venous thrombosis. IMPRESSION: 1. Recurrent acute exacerbation of chronic obstructive pulmonary disease with acute congestive heart failure, most likely diastolic dysfunction with cor pulmonale combination, and possibility of nonadherence to the instructions with dietary restriction and others. 2. Mild thrombocytopenia as well. 3. History of chronic hypercarbic respiratory failure as well as chronic hypoxemic respiratory failure. [place], [place] REPORT OF CONSULTATION NAME: DAVID ZAVALA UNIT #: [id number] ROOM: [facility] DOCTOR: NAIMA ARRIAGA MD BIRTHDATE: [birth year] PLAN OF THERAPY: Continue diuretics at this time orally. Intravenous diuretics could be started if the swelling does not respond. The dose of Solu-Medrol will be decreased from q. 8 hours to b.i.d. dosing and further reduction will be done since the wheezing has not been noted significant. No need of antibiotics at this time. Other treatment therapy, plan of management will be recommended based on progression of illness. With use of Lasix, monitor kidney function, BUN and creatinine and bicarbonate level. Also start the patient on bilevel pressure for medical management of chronic hypercapnic hypoxic respiratory failure with the settings of 18/10. This would be used in the morning as needed but at nighttime surely to be continued. NAIMA MCBRIDE MD CM:CONSTR:REPORT OF CONSULTATION [id number] 08/23/18 1038 interface
[2018-08-11 05:55] VITALS: BP 110/71
[2018-08-11 06:33] LABS: HEMATOCRIT 42.2 % (42.0-52.0); HEMOGLOBIN 14.3 g/dl (14.0-18.0); MEAN CELL VOLUME 91.3 fl (80.0-94.0); MEAN CORPUSCULAR HGB CONC 33.9 g/dl (33.0-37.0); MEAN PLATELET VOLUME 9.7 fl (9.6-12.3); PLATELET COUNT AUTOMATED 121 10*3/uL (130-400); RED BLOOD COUNT 4.62 10*6/uL (4.50-5.90); RED CELL DISTRI WIDTH 16.3 % (0-14.5); WHITE BLOOD COUNT 7.6 10*3/uL (4.8-10.8)
[2018-08-11 06:50] LABS: ALBUMIN 3.6 gm/dl (3.1-4.5); ALKALINE PHOSPHATASE 86 U/L (45-117); BUN 20 mg/dl (7-24); CHLORIDE 100 mmol/L (98-107); CREATININE 0.72 mg/dL (0.70-1.30); POTASSIUM 3.8 mmol/L (3.5-5.1); SGOT/AST 16 IU/L (3-35); SGPT/ALT 22 U/L (12-78); SODIUM 136 mmol/L (136-145); TOTAL PROTEIN 6.8 gm/dL (6.4-8.2)
[2018-08-11 06:52] LABS: TROPONIN I < 0.015 ng/ml (<0.045)
[2018-08-11 06:55] LABS: TOTAL CELLS COUNTED 100 #CELLS
[2018-08-11 06:56] LABS: PLATELET SUFFICIENCY LOW (NORMAL)
[2018-08-11 07:36] LABS: ACT PARTIAL THROMBO TIME 24.8 SECONDS (20.8-31.5)
[2018-08-11 07:38] VITALS: BP 117/72
[2018-08-11 08:40] VITALS: BP 117/67
--- NOTE | 2018-08-11 08:40 | NUR ---
A 78, admitted to , under the services of ZHANNA Hernandez DO with a diagnosis of COPD. Chief complaint is INCREASED SHORTNESS OF BREATH. Patient arrived via ambulance from ER. Monitor applied. Initial assessment completed. Vital signs taken and recorded. ZHANNA HERNANDEZ DO notified of admission to the unit. Orders received. See assessment for past medical history, medications and allergies. Patient and/or family oriented to unit. [facility] policy reviewed. Clothing/patient valuable form completed. BHASKAR LEE
--- NOTE | 2018-08-11 09:00 | NUR ---
Director Content Marketing in to talk to patient. Patient states lives at home with . There are no steps in the home. Physician: oziel taylor Pharmacy: Home health services: [facility], [facility] Patient's level of ADLs: MINIMAL ASSIST Patient has working utilities: all working DME: home oxygen, portable tanks, astral machine from [employer] Follow-up physician's appointment after d/c: will be made by hosptialist nurse director upon discharge Does patient want to access PORTAL?: no Discharge plan discussed with patient, patient lives at home with , he is slow to get around, he has home oxygen and portable tanks, patient stated he has a new machine at home but doesn't know what is it. case management called [employer], spoke to Dorothy, she stated patient was set up with an Astral machine, she stated that patient was not tolerating this machine very well at home and she was going to try and apply another kind of mask when patient went home, patient states he will be going home when able and wants to continue his home health, will notify [facility] when patient is medically stable for discharge. BRIDGER CARDOZO
[2018-08-11 09:40] LABS: ABG BASE EXCESS 2.6 mmol/L (-2.0-2.0); ABG O2 SATURATION 96.6 % (95-97); ARTERIAL BLOOD GAS PCO2 44.2 mmHg (35-45); ARTERIAL BLOOD GAS PH 7.407 (7.35-7.45); ARTERIAL BLOOD GAS PO2 77.5 mmHg (80-90)
--- NOTE | 2018-08-11 10:02 | NUR ---
DR MCBRIDE AWARE OF NEW CONSULT FOR COPD EXACERBATION. HE ROUNDED AND SEEN PT ONCE HE RETURNED FROM OR.
[2018-08-11 12:00] VITALS: BP 121/73
--- NOTE | 2018-08-11 13:29 | NUR ---
NOTIFIED DR MCBRIDE THE PT WAS HAVING LABORED BREATHING, SPO2 95% ON 5LNC. PT HAD AUDIBLE AUDITORY EXPIRATORY WHEEZES AND REQUESTING A BREATHING TREATMENT. ORDERS RECIEVED.
[2018-08-11] MEDS ORDERED: POTASSIUM CHLO10 ME4 PO (15:36)
[2018-08-11 16:00] VITALS: BP 136/80
--- NOTE | 2018-08-11 18:44 | NUR ---
MEDS RECONCILED VIA MED CLAIM HX AND WITH PT AT BEDSIDE.
[2018-08-11 20:00] VITALS: BP 118/65
--- NOTE | 2018-08-11 21:56 | NUR ---
VISTARIL GIVEN PER ORDER TO HELP PT. RELAX AND SLEEP. SEE MAR.
--- NOTE | 2018-08-11 22:52 | NUR ---
24 HR chart check completed.
--- NOTE | 2018-08-11 23:48 | NUR ---
PT PLACED ON BIPAP
[2018-08-12] VITALS: BP 142/86
[2018-08-12 06:28] LABS: HEMATOCRIT 37.8 % (42.0-52.0); HEMOGLOBIN 12.4 g/dl (14.0-18.0); MEAN CELL VOLUME 91.1 fl (80.0-94.0); MEAN CORPUSCULAR HGB 29.9 pg (27.0-31.0); MEAN CORPUSCULAR HGB CONC 32.8 g/dl (33.0-37.0); PLATELET COUNT AUTOMATED 112 10*3/uL (130-400); RED BLOOD COUNT 4.15 10*6/uL (4.50-5.90); RED CELL DISTRI WIDTH 15.9 % (0-14.5); WHITE BLOOD COUNT 5.7 10*3/uL (4.8-10.8)
[2018-08-12 06:30] LABS: BUN 24 mg/dl (7-24); CHLORIDE 102 mmol/L (98-107); CHOLESTEROL 209 mg/dL (<200); CREATININE 0.85 mg/dL (0.70-1.30); FREE T4 0.97 ng/dl (0.76-1.46); HDL CHOLESTEROL 72 mg/dl (40-60); LDL CHOLESTEROL 122 mg/dL (9-159); PHOSPHOROUS 2.6 mg/dL (2.5-4.9); POTASSIUM 3.7 mmol/L (3.5-5.1); SODIUM 138 mmol/L (136-145); TRIGLYCERIDES 74 mg/dl (<150); VLDL CHOLESTEROL 15 mg/dL (6-40)
[2018-08-12 06:37] LABS: THYROID STIM HORMONE (HS) 0.712 uIU/ml (0.358-4.75)
[2018-08-12 07:27] LABS: PLATELET SUFFICIENCY LOW (NORMAL); TOTAL CELLS COUNTED 100 #CELLS
[2018-08-12 08:00] VITALS: BP 148/94
--- NOTE | 2018-08-12 08:00 | NUR ---
[facility] INSTRUCTOR Luis REID RN. AND STUDENTS ASSUMED CARE OF PT.
--- NOTE | 2018-08-12 09:00 | NUR ---
Coordinator Of Genetic Services in to see patient. Discussed home health care services and he currently has [facility] RN and would like to resume those services upon discharge. Notified Dr. Thompson. When medically stable he will be discharged to home with the resumption of his home health services.
--- NOTE | 2018-08-12 10:03 | NUR ---
PHYSICAL THERAPY 1:1 Time: Pain on a scale of 0-10 > Prior to treatment: 0/10 Post treatment: 0/10 Progress note: Pt seen on this date for initial physical therapy assessment; please refer to pt's chart for details. Pt performed supine <-> sit with I. He sat at EOB with good balance. He performed sit <-> stand with SBA. He stood with F/F+ balance. He ambulated 10' x 2 with SBA/CGA and SOB. He is on 4L O2. KAVITHA JACQUES S PT
--- NOTE | 2018-08-12 10:12 | NUR ---
DR GARDNER AND TEAM ROUNDED AND SEEN PT.
--- NOTE | 2018-08-12 10:12 | NUR ---
DR GARDNER AND TEAM ROUNDED AND SEEN PT. ORDERS RECIEVED TO D/C ALL ABX.
[2018-08-12 12:00] VITALS: BP 134/78
--- NOTE | 2018-08-12 12:00 | NUR ---
PT STATES HE USED BIPAP ALL NIGHT FOR 7 HOURS. STATES HE DOES NOT WANT ON BIPAP TODAY.
--- NOTE | 2018-08-12 15:00 | NUR ---
[facility] INSTRUCTOR AND [facility] STUDENT NURSE ASSUMED CARE OF PT.
--- NOTE | 2018-08-12 15:10 | NUR ---
PHYSICAL THERAPY Patient presented to therapy in supine with head of bed elevated and 4 liters of spO2 via nasal canula. Patient's bed alarm was not on at this time. Patient says he doesn't feel to good this afternoon. Patient agrees to therapy session. Patient performed supine to sitting at EOB transfer with SBA. Patient transferred STS with SBA. Patient ambulated with 4 liters of spO2 via nasal canula and no assistive device with TELEPHONE DIRECTORY DELIVERER X 1 for 80' x 1. Patient's O2 SAT was 94% - 95% post ambulating 80 ' x 1 and pulse was 100. Patient transferred back to supine in bed with SBA with head of bed elevated, call light within reach, and bed alarm activated. Patient was 1:1 with this TEXTILE CHEMIST for 16 minutes total. GARRETT YU TEXTILE CHEMIST
--- NOTE | 2018-08-12 15:42 | NUR ---
Pt placed on Astral machine to get used to it. Settings per Dr. Montoya and home care company. Pt is comfortable and tolerating well. No complaints at this time
[2018-08-12 16:00] VITALS: BP 138/82
--- NOTE | 2018-08-12 16:27 | NUR ---
ORDER AND CLINICALS FOR RESUME HOME HEALTH FAXED TO [facility]. ALSO CALLED AND LEFT THEM MESSAGE ABOUT RESUMING SERVICES AND THAT THERE WAS NO DISCHARGE DATE YET.
--- NOTE | 2018-08-12 19:08 | NUR ---
AWAKE/ALERT FOR BEDSIDE SHIFT REPORT.
[2018-08-12 20:00] VITALS: BP 160/88
--- NOTE | 2018-08-12 20:53 | NUR ---
PATIENT TOOK 2200 MEDICATIONS WITHOUT ISSUE. REQUESTING VISTARIL WHEN HE GOES ON HIS BIPAP FOR THE NIGHT AND WILL LET ME KNOW WHEN READY.
--- NOTE | 2018-08-12 23:50 | NUR ---
NOTIFIED DR ZELAYA OF PATIENTS BP 178/100 MANUAL. STATED HE IS GOING TO LOOK AT HIS CHART AND PUT SOMETHING IN.
[2018-08-13] VITALS: BP 178/100
--- NOTE | 2018-08-13 00:10 | NUR ---
MEDICATED WITH 1X DOSE OF APRESOLINE ORDERED. WILL RECHECK BP
--- NOTE | 2018-08-13 00:13 | NUR ---
NOTIFIED DR ZELAYA OF PATIENT REQUESTING SLEEPING PILL. STATED HE WILL TAKE A LOOK
--- NOTE | 2018-08-13 00:26 | NUR ---
PT REFUSES TO WEAR NEW HOME BIPAP MACHINE. HE CLAIMS THAT THE MASK DOESN'T FIT CORRECTLY AND HE WONT WEAR ANYTHING BUT HOSPITAL BIPAP MACHINE. PLACED ON V-60 AT PREVIOUS SETTINGS AND RN NOTIFIED.
[2018-08-13 02:15] VITALS: BP 154/96
--- NOTE | 2018-08-13 02:21 | NUR ---
RECHECK BP 154/96. DR ZELAYA NOTIFIED. PATIENT RESTING COMFORTABLY ON HOSPITAL BIPAP. CONTINUES TO REFUSE HOME MACHINE STATING HE IS NOT GETTING ENOUGH AIR LIKE HE DOES WITH THE HOSPITAL ONE.
[2018-08-13 06:09] LABS: BUN 22 mg/dl (7-24); CHLORIDE 105 mmol/L (98-107); CREATININE 0.83 mg/dL (0.70-1.30); POTASSIUM 3.7 mmol/L (3.5-5.1); SODIUM 140 mmol/L (136-145)
[2018-08-13 06:13] LABS: BASO % 0.3 % (0.0-1.0); HEMATOCRIT 39.4 % (42.0-52.0); LYMPH # 0.8 10*3/uL (1.3-4.4); LYMPH % 8.9 % (27.0-41.0); MEAN CELL VOLUME 90.4 fl (80.0-94.0); MEAN CORPUSCULAR HGB 29.8 pg (27.0-31.0); MONO # 0.6 10*3/uL (0.1-1.0); MONO % 7.2 % (3.0-9.0); NEUT # 7.1 10*3/uL (2.3-7.9); NEUT % 80.9 % (47.0-73.0); PLATELET COUNT AUTOMATED 110 10*3/uL (130-400); RED BLOOD COUNT 4.36 10*6/uL (4.50-5.90); RED CELL DISTRI WIDTH 15.9 % (0-14.5); WHITE BLOOD COUNT 8.7 10*3/uL (4.8-10.8)
--- NOTE | 2018-08-13 07:24 | NUR ---
PT OFF BIPAP AT THIS TIME
[2018-08-13 07:49] VITALS: BP 150/90
--- NOTE | 2018-08-13 08:27 | NUR ---
DULCOLAX GIVEN FOR C/O CONSTIPATION. WILL MONITOR.
--- NOTE | 2018-08-13 09:00 | NUR ---
Associate Director in to see patient. No new needs or request at this time. When medically stable he will be discharged to home with the resumption of his home health services.
--- NOTE | 2018-08-13 11:12 | NUR ---
PHYSICAL THERAPY Patient is on BI-PAP machine at this time. Will check back after lunch. GARRETT YU JOB TRAINER
--- NOTE | 2018-08-13 11:57 | NUR ---
Faxed resume [facility].
[2018-08-13 12:00] VITALS: BP 152/87
--- NOTE | 2018-08-13 14:43 | NUR ---
PHYSICAL THERAPY Patient was approached by this ROOF CEMENT AND PAINT MAKER HELPER for 2 nd time today and patient was very SOB and had just come off the C- PAP machine. Patient was sitting at EOB and demonstrated SOB without exertion. Patient's NURSE IS MONITORING PATIENT. NO THERPY PROVIDED FOR THIS REASON THIS AFTERNOON. GARRETT YU ROOF CEMENT AND PAINT MAKER HELPER
--- NOTE | 2018-08-13 15:28 | NUR ---
Occupational Therapy evaluation offered this date with present. Patient seated at edge of bed with present.OT sue offered and explained to both patient and his . Both feel that [place] can independently [place] [facility] [place] and perform self care at same level as when at home. very upset about staff putting meal tray on table and not orienting patient to the tray visually so that he can locate the foods d/t his blindness. She was also upset that "someone told the patient that he should go to a usp". At this time patient does not want OT services. Discharge referral. Thank you. Sandee Glaser OTR/monica
[2018-08-13 16:00] VITALS: BP 146/78
[2018-08-13 20:00] VITALS: BP 150/82
--- NOTE | 2018-08-13 23:50 | NUR ---
Pt using Astral 150 for NIV. Patient states that "this machine doesn't give me a deep enough breath, is going to make my blood pressure go up and give me an aneurysm". Convinced patient to give it one last try. Patient resting comfortably, and on monitor. SPO2: 97%. Will continue to monitor.
[2018-08-14] VITALS: BP 150/87
--- NOTE | 2018-08-14 02:17 | NUR ---
Pt tolerating Astral 150 machine well. States he feels "pretty good" and has no respiratory complaints at this time.
[2018-08-14 06:57] LABS: BASO % 0.2 % (0.0-1.0); EOS % 0.1 % (1.0-4.0); HEMATOCRIT 41.2 % (42.0-52.0); HEMOGLOBIN 13.8 g/dl (14.0-18.0); LYMPH # 1.3 10*3/uL (1.3-4.4); LYMPH % 14.4 % (27.0-41.0); MEAN CELL VOLUME 90.5 fl (80.0-94.0); MEAN CORPUSCULAR HGB 30.3 pg (27.0-31.0); MEAN CORPUSCULAR HGB CONC 33.5 g/dl (33.0-37.0); MEAN PLATELET VOLUME 10.2 fl (9.6-12.3); MONO # 0.6 10*3/uL (0.1-1.0); MONO % 6.6 % (3.0-9.0); NEUT % 76.9 % (47.0-73.0); PLATELET COUNT AUTOMATED 116 10*3/uL (130-400); RED BLOOD COUNT 4.55 10*6/uL (4.50-5.90); RED CELL DISTRI WIDTH 16.1 % (0-14.5); WHITE BLOOD COUNT 9.1 10*3/uL (4.8-10.8)
[2018-08-14 07:06] LABS: ALBUMIN 3.5 gm/dl (3.1-4.5); BUN 24 mg/dl (7-24); CHLORIDE 103 mmol/L (98-107); CREATININE 0.81 mg/dL (0.70-1.30); POTASSIUM 3.7 mmol/L (3.5-5.1); SGOT/AST 28 IU/L (3-35); SGPT/ALT 24 U/L (12-78); SODIUM 140 mmol/L (136-145); TOTAL PROTEIN 6.6 gm/dL (6.4-8.2)
[2018-08-14 07:07] LABS: ALKALINE PHOSPHATASE 79 U/L (45-117)
[2018-08-14 12:00] VITALS: BP 160/92
[2018-08-14 16:00] VITALS: BP 154/85
[2018-08-14 20:00] VITALS: BP 130/79
--- NOTE | 2018-08-14 21:21 | NUR ---
NOTIFIED DR CRUZ OF PATIENT REQUESTING SOMETHING TO HELP HIM SLEEP TONIGHT. STATED TO VERIFY WITH PATIENT IF HE CAN TAKE RESTORIL AND HE WILL PUT THE ORDER IN.
--- NOTE | 2018-08-14 21:30 | NUR ---
PATIENT STATES HE USED TO TAKE RESTORIL ALL THE TIME, BUT "[facility] MADE ME STOP BREATHING AND THEY WORKED ON ME DOWNSTAIRS" PER PT HE HAS NEVER HAD A REACTION TO RESTORIL.
--- NOTE | 2018-08-14 22:10 | NUR ---
MEDICATED WITH PRN RESTORIL ORDERED FOR C/O INSOMNIA.
[2018-08-15] VITALS: BP 154/89
[2018-08-15 06:27] LABS: HEMATOCRIT 38.5 % (42.0-52.0); HEMOGLOBIN 13.1 g/dl (14.0-18.0); MEAN CELL VOLUME 91.2 fl (80.0-94.0); MEAN PLATELET VOLUME 10.1 fl (9.6-12.3); PLATELET COUNT AUTOMATED 102 10*3/uL (130-400); RED BLOOD COUNT 4.22 10*6/uL (4.50-5.90); RED CELL DISTRI WIDTH 16.3 % (0-14.5); WHITE BLOOD COUNT 8.7 10*3/uL (4.8-10.8)
[2018-08-15 06:39] LABS: BUN 26 mg/dl (7-24); CHLORIDE 103 mmol/L (98-107); CREATININE 0.76 mg/dL (0.70-1.30); POTASSIUM 3.5 mmol/L (3.5-5.1); SODIUM 139 mmol/L (136-145)
[2018-08-15 06:49] LABS: PLATELET SUFFICIENCY LOW (NORMAL); TOTAL CELLS COUNTED 100 #CELLS
[2018-08-15 08:00] VITALS: BP 142/80
--- NOTE | 2018-08-15 08:15 | NUR ---
24 HR chart check completed.
--- NOTE | 2018-08-15 08:45 | NUR ---
DR DICKSON/HERMILA HERE TO SEE PATIENT AND DISCUSS PLAN OF CARE
--- NOTE | 2018-08-15 09:00 | NUR ---
SITTING AT BEDSIDE EATING BREAKFAST. RESPIRATIONS EASY. LUNGS DIMINISHED WITH WHEEZES. PULSE OX 98%, PATIENT CURRENTLY HAS O2 HANGING AROUND NECK. EXPLAINED IMPORTANCE OF O2 USE BUT PATIENT DECLINES STATING HE WEARS O2 IN MOUTH AND IS CURRENTLY EATING. LOOSE COUGH NOTED, PATIENT STATES N-PROD - CUP PRESENT AT BEDSIDE FOR SAMPLE. CALL LIGHT WITHIN REACH. NO VOICED COMPLAINTS
--- NOTE | 2018-08-15 09:52 | NUR ---
DR Kassandra DICKSON HERE TO ROUND WITH RESIDENTS.
[2018-08-15] MEDS ORDERED: PREDNISONE10 MG PO (11:12)
[2018-08-15] MEDS ORDERED: MUCINEX ER600 MG PO (11:12)
[2018-08-15] MEDS ORDERED: FUROSEMIDE40 MG PO (11:14)
[2018-08-15 12:00] VITALS: BP 125/82
--- NOTE | 2018-08-15 12:00 | NUR ---
RESTING WITH EYES CLOSED. O2 IN USE. CALL LIGHT WITHIN REACH. NO VOICED COMPLAINTS
--- NOTE | 2018-08-15 13:50 | NUR ---
DR MCBRIDE PRESENT ON FLOOR AND AWARE OF D/C.
--- NOTE | 2018-08-15 14:45 | NUR ---
Discharge instructions reviewed with patient/family. Patient receptive and verbalizes understanding. Follow-up care arranged. Written instructions given to patient/family. PATIENT AND BELONGINGS TRANSPORTED VIA TO [facility]. [facility] WAITING IN [facility]. PAPERWORK AND D/C PLANS REVIEWED. DINAH TOVAR M
--- NOTE | 2018-08-16 07:51 | NUR ---
PHYSICAL THERAPY CO-SIGN I approve of the Phyical Therapy notes written above. FERMIN VARGHESE PT
[2018-09-17] MEDS ORDERED: DOXYCYCLINE100 M3 PO (11:28)
[2018-09-17] MEDS ORDERED: PREDNISONE10 MG PO (11:28)
[2018-09-17] MEDS ORDERED: FUROSEMIDE40 MG PO (11:28)
[2018-09-17] MEDS ORDERED: AUGMENTIN 875-875 MG PO (11:34)
[2018-09-17] MEDS ORDERED: K-TAB10 MEQ PO (11:34)
== END 2018-08-15 14:45 | disposition home health service (06) | DRG 291 ==
LOC: ED 05:52 → 4E 07:19 → EDHOLD 07:19 → 4E 08:01
PROVIDERS: Emergency Medicine; Internal Medicine; Internal Medicine Nephrology; ADMIT Internal Medicine
PROC: 5A09357 Assistance with Respiratory Ventilation, Less than 24 Consecutive Hours, Continuous Positive Airway Pressure (ICD-10-PCS; principal; 2018-08-11)
PROC: 5A09357 Assistance with Respiratory Ventilation, Less than 24 Consecutive Hours, Continuous Positive Airway Pressure (ICD-10-PCS; 2018-08-13)
PROC: 5A09357 Assistance with Respiratory Ventilation, Less than 24 Consecutive Hours, Continuous Positive Airway Pressure (ICD-10-PCS; 2018-08-14)
DX: I11.0 Hypertensive heart disease with heart failure (principal); J96.22 Acute and chronic respiratory failure with hypercapnia; J96.21 Acute and chronic respiratory failure with hypoxia; J44.1 Chronic obstructive pulmonary disease with (acute) exacerbation; E87.3 Alkalosis; D69.6 Thrombocytopenia, unspecified; I50.33 Acute on chronic diastolic (congestive) heart failure; D72.810 Lymphocytopenia; I25.10 Atherosclerotic heart disease of native coronary artery without angina pectoris; M62.542 Muscle wasting and atrophy, not elsewhere classified, left hand; M94.0 Chondrocostal junction syndrome [Tietze]; R73.9 Hyperglycemia, unspecified; K21.9 Gastro-esophageal reflux disease without esophagitis; H40.9 Unspecified glaucoma; N40.0 Benign prostatic hyperplasia without lower urinary tract symptoms; E03.9 Hypothyroidism, unspecified; Z99.81 Dependence on supplemental oxygen; Z88.2 Allergy status to sulfonamides; Z88.8 Allergy status to other drugs, medicaments and biological substances; Z88.6 Allergy status to analgesic agent; Z88.1 Allergy status to other antibiotic agents; Z91.041 Radiographic dye allergy status; Z91.013 Allergy to seafood; Z85.038 Personal history of other malignant neoplasm of large intestine; Z90.49 Acquired absence of other specified parts of digestive tract; Z98.61 Coronary angioplasty status; Z87.891 Personal history of nicotine dependence; Z82.49 Family history of ischemic heart disease and other diseases of the circulatory system; Z83.3 Family history of diabetes mellitus; Z79.899 Other long term (current) drug therapy

== ENCOUNTER 2018-08-24 10:09 | Emergency (ER) | payer OTHER ==
[~2018-08-24] VITALS: Ht 170.1 cm; Wt 73.9 kg
--- NOTE | ~2018-08-24 | EKG ---
[place], [place] ELECTROCARDIOGRAM REPORT NAME: DAVID ZAVALA UNIT #: [id number] ROOM: DOCTOR: EPIPHANY DRAFT REPORT BIRTHDATE: [birth year] [facility] Test Date: 2018-08-24 Test Time: 10:19:23 Pat Name: DAVID ZAVALA Department: Room: [facility] Gender: M Energy Consultant: : [id number] Requested By: KYARA PARKER Order Number: [id number] Reading MD: Hardeep Ritchie MD Measurements Intervals [place] Rate: 82 P: 65 SC: 178 QRS: 25 QRSD: 98 T: 37 QT: 347 QTc: 406 Interpretive Statements Sinus rhythm Poor precordial R-wave progression Compared to ECG 08/03/2018 16:13:29 No significant change Electronically Signed On 08-26-2018 7:17:00 PST by Hardeep Ritchie MD CM:EKGRPT:ELECTROCARDIOGRAM REPORT [id number] KYARA PARKER MD EPIPHZAKIA DRAFT REPORT KYARA PARKER MD
[2018-08-24 10:09] VITALS: BP 179/94
[~2018-08-24 10:09] MED LIST changes: +POTASSIUM CHLO10 ME4 PO
[2018-08-24 10:52] VITALS: BP 137/75
--- NOTE | 2018-08-24 10:52 | NUR ---
PT PROVIDED URINAL BUT STATES HE DOESN'T PRODUCE MUCH URINE AND IT MIGHT BE AWHILE. HE DECLINES A CATHETER SPECIMEN.
[2018-08-24 10:55] LABS: HEMATOCRIT 39.7 % (42.0-52.0); HEMOGLOBIN 13.4 g/dl (14.0-18.0); MEAN CELL VOLUME 91.1 fl (80.0-94.0); MEAN CORPUSCULAR HGB 30.7 pg (27.0-31.0); MEAN CORPUSCULAR HGB CONC 33.8 g/dl (33.0-37.0); MEAN PLATELET VOLUME 9.6 fl (9.6-12.3); PLATELET COUNT AUTOMATED 113 10*3/uL (130-400); RED BLOOD COUNT 4.36 10*6/uL (4.50-5.90); RED CELL DISTRI WIDTH 15.8 % (0-14.5); WHITE BLOOD COUNT 8.9 10*3/uL (4.8-10.8)
[2018-08-24 11:05] LABS: ACT PARTIAL THROMBO TIME 22.3 SECONDS (20.8-31.5); INTERNATIONAL NORM RATIO 0.9 (2.0-3.5)
[2018-08-24 11:15] LABS: ALBUMIN 3.3 gm/dl (3.1-4.5); ALKALINE PHOSPHATASE 67 U/L (45-117); BUN 19 mg/dl (7-24); CHLORIDE 105 mmol/L (98-107); PLATELET SUFFICIENCY LOW (NORMAL); POTASSIUM 3.8 mmol/L (3.5-5.1); SGOT/AST 19 IU/L (3-35); SGPT/ALT 22 U/L (12-78); SODIUM 139 mmol/L (136-145); TOTAL CELLS COUNTED 100 #CELLS; TOTAL PROTEIN 6.4 gm/dL (6.4-8.2)
[2018-08-24 11:16] LABS: TROPONIN I 0.019 ng/ml (<0.045)
--- NOTE | 2018-08-24 11:22 | NUR ---
Notifed by lab, pt lactic acid 2.2, Dr. Nelson and Tasha RN notifed.
[2018-08-24 11:40] VITALS: BP 144/68
--- NOTE | 2018-08-24 11:51 | NUR ---
THE PATIENT STATES HE DOES NOT WANT TO BE ADMITTED. MADE AWARE. PT ASK THAT I CALL HIS AND HAVE HER COME AND GET HIM. I DID THIS AND THE STATES SHE IS GOING TO TALK WITH THE PATIENTS SISTER AND HAVE THE SISTER TALK TO THE PATIENT. I DID LET THE KNOW THAT THE PATIENT IS AWAKE ALERT AND ORIENTED AND I CANNOT FORCE HIM TO STAY . LORIN COTTO RN.
[2018-09-17] MEDS ORDERED: PREDNISONE10 MG PO (11:28)
[2018-09-17] MEDS ORDERED: DOXYCYCLINE100 M3 PO (11:28)
[2018-09-17] MEDS ORDERED: FUROSEMIDE40 MG PO (11:28)
[2018-09-17] MEDS ORDERED: AUGMENTIN 875-875 MG PO (11:34)
[2018-09-17] MEDS ORDERED: K-TAB10 MEQ PO (11:34)
== END 2018-08-24 13:04 | disposition home or self-care (01) ==
LOC: ED 10:09 → EDHOLD 11:21 → ED 11:21 → 5E 11:52 → EDHOLD 11:52 → ED 13:04
PROVIDERS: Emergency Medicine
DX: J44.1 Chronic obstructive pulmonary disease with (acute) exacerbation (principal); I25.10 Atherosclerotic heart disease of native coronary artery without angina pectoris; K21.9 Gastro-esophageal reflux disease without esophagitis; E03.9 Hypothyroidism, unspecified; I11.0 Hypertensive heart disease with heart failure; I50.32 Chronic diastolic (congestive) heart failure; Z87.891 Personal history of nicotine dependence; Z88.8 Allergy status to other drugs, medicaments and biological substances; Z88.6 Allergy status to analgesic agent; Z88.2 Allergy status to sulfonamides; Z91.013 Allergy to seafood; Z88.1 Allergy status to other antibiotic agents; Z91.041 Radiographic dye allergy status; Z79.899 Other long term (current) drug therapy